=== PATIENT | male | born 1935 | race Caucasian/White ===

== ENCOUNTER → 2019-07-24 10:57 | Outpatient (CLI) | payer MEDICARE, SELFPAY ==
[2019-07-24 12:19] LABS: Hemoglobin A1C% w Est Avg Glu 6.7 % (4.0-6.0)
[2019-07-24 13:16] LABS: Alanine Aminotransferase 23 IU/L (<50); Albumin 4.2 g/dL (3.5-5.0); Albumin Globulin Ratio 1.4 (1.0-2.8); Alkaline Phosphatase 70 U/L (38-126); Aspartate Aminotransferase 26 IU/L (17-59); BUN Creatinine Ratio 28.3 (6-22); Bilirubin Total 0.9 mg/dL (0.2-1.3); Blood Urea Nitrogen 17 mg/dL (9-20); Calcium 9.6 mg/dL (8.4-10.2); Carbon Dioxide 29 mmol/L (22-32); Chloride 99 mmol/L (98-107); Estimated Glomerular Filt Rate > 60.0 mL/min (>60); Globulin 2.9 g/dL (1.7-4.1); Glucose 94 mg/dL (80-110); HEMOLYSIS < 15 (0-50); Potassium 3.8 mmol/L (3.4-5.1); Sodium 137 mmol/L (137-145); Total Protein 7.1 g/dL (6.3-8.2)
== END ==
PROVIDERS: PCP Internal Medicine; Referring Provider Internal Medicine; Visit Provider Internal Medicine
DX: E11.9 Type 2 diabetes mellitus without complications (principal); I10 Essential (primary) hypertension
CPT/HCPCS: 36415; 80053; 83036

== ENCOUNTER → 2019-11-07 07:26 | Outpatient (CLI) | payer MEDICARE, SELFPAY ==
[2019-11-07 09:22] LABS: BUN Creatinine Ratio 19.7 (6-22); Blood Urea Nitrogen 13 mg/dL (9-20); Calcium 9.4 mg/dL (8.4-10.2); Carbon Dioxide 32 mmol/L (22-32); Chloride 98 mmol/L (98-107); Estimated Glomerular Filt Rate > 60.0 mL/min (>60); Glucose 157 mg/dL (80-110); HEMOLYSIS < 15 (0-50); Potassium 3.7 mmol/L (3.4-5.1); Sodium 140 mmol/L (137-145)
[2019-11-07 09:55] LABS: Testosterone 229 ng/dL (71.8-623)
== END ==
PROVIDERS: PCP Internal Medicine; Referring Provider Internal Medicine; Visit Provider Internal Medicine
DX: E11.9 Type 2 diabetes mellitus without complications (principal); I10 Essential (primary) hypertension; E29.1 Testicular hypofunction
CPT/HCPCS: 36415; 80048; 84403

== ENCOUNTER → 2020-05-05 18:41 | Outpatient (ROUT) | payer OTHER, SELFPAY ==
[2020-05-05 19:34] LABS: Add Manual Diff / Slide Review NO; Basophils Absolute Auto 0 /uL (0-100); Basophils Percent Auto 0.3 % (0-2); Eosinophils Absolute Auto 100 /uL (0-450); Hematocrit 44.6 % (41-53); Hemoglobin 15.3 g/dL (13.5-17.5); Lymphocytes Absolute Auto 1600 /uL (1100-4500); Lymphocytes Percent Auto 16.6 % (25-40); Mean Corpuscular HGB Conc 34.2 % (30-36); Mean Corpuscular Hemoglobin 28.4 PG (26-34); Mean Corpuscular Volume 82.8 fL (80-100); Monocytes Absolute Auto 900 /uL (0-900); Monocytes Percent Auto 9.1 % (3-14); Neutrophils Absolute Auto 7100 /uL (1500-7000); Platelet Count 317 X10^3/uL (150-400); Red Blood Cell Count 5.39 X10^6/uL (4.5-5.9); Red Cell Distribution Width 14.6 % (11.6-14.8); White Blood Cell Count 9.8 X10^3/uL (4.5-11.0)
[2020-05-05 19:43] LABS: Alanine Aminotransferase 18 IU/L (<50); Albumin 4.1 g/dL (3.5-5.0); Albumin Globulin Ratio 1.5 (1.0-2.8); Alkaline Phosphatase 94 U/L (38-126); Aspartate Aminotransferase 32 IU/L (17-59); BUN Creatinine Ratio 24.3 (6-22); Bilirubin Total 0.6 mg/dL (0.2-1.3); Blood Urea Nitrogen 18 mg/dL (9-20); Calcium 9.7 mg/dL (8.4-10.2); Carbon Dioxide 32 mmol/L (22-32); Chloride 92 mmol/L (98-107); Estimated Glomerular Filt Rate > 60.0 mL/min (>60); Globulin 2.8 g/dL (1.7-4.1); Glucose 128 mg/dL (80-110); HEMOLYSIS < 15 (0-50); Lipase 190 U/L (23-300); Potassium 3.6 mmol/L (3.4-5.1); Sodium 135 mmol/L (137-145); Total Protein 6.9 g/dL (6.3-8.2)
[2020-05-05 20:32] LABS: Erythrocyte Sedimentation Rate 6 MM/HR (0-15)
== END ==
PROVIDERS: PCP Internal Medicine; Visit Provider Internal Medicine
DX: R10.30 Lower abdominal pain, unspecified (principal)
CPT/HCPCS: 80053; 83690; 85025; 85651

== ENCOUNTER → 2020-05-06 12:50 | Outpatient (CLI) | payer OTHER, SELFPAY ==
--- NOTE | 2020-05-06 | DI.CT.S_ITS ---
PROCEDURE: CT ABDOMEN PELVIS W CON INDICATIONS: Lower abdominal pain, unspecified TECHNIQUE: After the administration of oral and intravenous contrast, 5 mm thick sections acquired from the diaphragms to the symphysis. 5 mm thick coronal and sagittal reformats were performed. For radiation dose reduction, the following was used: automated exposure control, adjustment of mA and/or kV according to patient size. COMPARISON: None. FINDINGS: Image quality: Excellent. ABDOMEN: Lung bases: There is a large right pleural effusion. Nodular thickening of the pleural surfaces is seen that is suspicious for a pleural planus malignancy or metastatic disease. The largest area of pleural nodularity is seen adjacent to the anterior right hemidiaphragm (22/3) measuring up to 8.7 x 2.7 by 4.8 cm. There is atelectasis of the right lung base. A nodular opacity is seen in the anterior aspect of the right middle or upper lobe, incompletely included on this exam. The left lung base is clear. Solid organs: The liver surface is mildly nodular, which could indicate early cirrhotic changes. A subtle 1.1 cm poorly defined hypodensity is seen in the right hepatic lobe (38/3). There is focal fatty infiltration adjacent to the falciform ligament. The gallbladder is surgically absent. Biliary system is non-dilated. Pancreas enhances normally. Spleen is normal in size and enhancement. No adrenal nodules. Kidneys are normal in size and enhancement, without hydronephrosis. A probable 5 mm calculus is seen in the interpolar region of the left kidney. A large cyst is seen in the interpolar region of the right kidney. Peritoneum and bowel: Multiple diverticula are seen in the sigmoid colon without signs of acute diverticulitis. There are no signs of bowel obstruction. No free fluid or air. Nodes and vessels: No retroperitoneal or mesenteric adenopathy. Aorta and inferior vena cava are normal in caliber. Moderate atherosclerotic calcifications are seen in the abdominal aorta. Areas of mild infrarenal ectasia are seen measuring up to 2.4 cm in diameter. Miscellaneous: No ventral hernias. PELVIS: Genitourinary: There is mild diffuse thickening of the bladder wall that may be related to underdistention, chronic outlet obstruction, and/or cystitis. The prostate is mildly enlarged. Miscellaneous: A small fat containing right inguinal hernia is present. No significant pelvic lymphadenopathy. Bones: Multilevel degenerative changes are seen in the spine. There is grade 1 anterolisthesis of L4 on L5. No suspicious bony lesions. No vertebral body compression fractures. IMPRESSION: 1. Large right pleural effusion with atelectasis of the right lung base. Nodularity of the pleural surfaces suspicious for pleural metastatic disease. A small masslike opacity in the right middle or upper lobe is partially imaged. Recommend CT of the chest for further evaluation. 2. Subtle nodularity of the liver surface is suspicious for mild or early cirrhosis. Recommend correlation clinical findings. Nonspecific subtle hypodense 1.1 cm lesion in the right hepatic lobe is indeterminate. Liver protocol MRI or CT may be obtained on a nonemergent basis for further evaluation. 3. Colonic diverticulosis without signs of acute diverticulitis. 4. Nonobstructing 5 mm calculus in the interpolar region of the right kidney. Dictated by: Macario Mars M.D. on 05/06/2020 at 13:33 Approved by: Macario Mars M.D. on 05/06/2020 at 13:48
== END ==
PROVIDERS: PCP Internal Medicine; Referring Provider Internal Medicine; Visit Provider Internal Medicine
DX: R10.30 Lower abdominal pain, unspecified (principal); J90 Pleural effusion, not elsewhere classified; K57.30 Diverticulosis of large intestine without perforation or abscess without bleeding; N28.1 Cyst of kidney, acquired; I70.0 Atherosclerosis of aorta; I77.811 Abdominal aortic ectasia; N40.0 Benign prostatic hyperplasia without lower urinary tract symptoms; M43.16 Spondylolisthesis, lumbar region
CPT/HCPCS: 74177; Q9967

== ENCOUNTER 2020-05-10 09:52 | Observation (INO) | payer OTHER, SELFPAY ==
[2020-05-10] VITALS (10 sets, daily range): BP systolic 116–148; BP diastolic 59–88; PULSE 85–104; RESP 18–39; TEMP 36.5–36.7; O2SAT 88–100; BMI 26.1
--- NOTE | 2020-05-10 | DI.RAD.S_ITS ---
PROCEDURE: XR CHEST 1V INDICATIONS: POST THORA TECHNIQUE: One view of the chest was acquired. COMPARISON: [facility], CR, XR CHEST 1V, 05/10/2020, 10:15. FINDINGS: Surgical changes and devices: Surgical clips and cervical spinal fixation hardware. No pneumothorax identified. There is moderate residual right pleural fluid with adjacent atelectasis and patchy consolidative opacities involve the right upper lobe. There is scarring/atelectasis throughout the left lobe without focal consolidation. Mediastinum: Mediastinal contours appear normal. Heart size is normal. Bones and chest wall: No suspicious bony lesions. Overlying soft tissues appear unremarkable. IMPRESSION: No pneumothorax, status post thoracentesis. Residual right pleural effusion and adjacent atelectasis, as well as diffuse patchy and ill-defined opacities. No new focal consolidation. Improved lung volumes. Dictated by: Lex Ruvalcaba M.D. on 05/10/2020 at 13:24 Approved by: Lxe Ruvalcaba M.D. on 05/10/2020 at 13:26
--- NOTE | 2020-05-10 10:11 | DI.RAD.S_ITS ---
PROCEDURE: XR CHEST 1V INDICATIONS: short of breath TECHNIQUE: One view of the chest was acquired. COMPARISON: None. FINDINGS: Surgical changes and devices: Cervical spine postoperative hardware is seen. Lower neck clips are seen. Postoperative change of the right shoulder can be seen. Lungs and pleura: Low lung volumes are noted. This causes a crowded appearance to the lung markings and limits evaluation. Bilateral pleural effusions are seen, right worse than left. No pneumothorax is seen. Generalized interstitial prominence can be seen. Mediastinum: Cardiac and mediastinal silhouettes are obscured. There is believed to be [id number] cardiomegaly. Atherosclerotic calcification of the aortic arch is noted. Bones and chest wall: No suspicious bony lesions. Age-appropriate bony degenerative changes are seen. Overlying soft tissues appear unremarkable. IMPRESSION: Cardiomegaly, interstitial prominence, and pleural effusions. Please correlate with patient presentation, physical examination findings, and laboratory values for congestive heart failure. Postoperative and degenerative changes are seen. Dictated by: Escobar Huang M.D. on 05/10/2020 at 9:28 Approved by: Escobar Huang M.D. on 05/10/2020 at 9:29
[2020-05-10 10:18] LABS: Add Manual Diff / Slide Review NO; Basophils Absolute Auto 100 /uL (0-100); Basophils Percent Auto 0.6 % (0-2); Eosinophils Absolute Auto 100 /uL (0-450); Eosinophils Percent Auto 0.9 % (2-4); Hematocrit 45.3 % (41-53); Hemoglobin 15.1 g/dL (13.5-17.5); Lymphocytes Absolute Auto 1900 /uL (1100-4500); Lymphocytes Percent Auto 18.5 % (25-40); Mean Corpuscular HGB Conc 33.4 % (30-36); Mean Corpuscular Hemoglobin 27.7 PG (26-34); Monocytes Absolute Auto 1100 /uL (0-900); Monocytes Percent Auto 10.8 % (3-14); Neutrophils Absolute Auto 7200 /uL (1500-7000); Neutrophils Percent Auto 69.2 % (50-75); Platelet Count 380 X10^3/uL (150-400); Red Blood Cell Count 5.46 X10^6/uL (4.5-5.9); Red Cell Distribution Width 14.8 % (11.6-14.8); White Blood Cell Count 10.4 X10^3/uL (4.5-11.0)
[2020-05-10 10:27] LABS: INR 1.2 (0.9-1.3); Prothrombin Time 13.8 SECONDS (10.1-12.7)
[2020-05-10 10:30] LABS: PTT Partial Thromboplastin Tim 36 SECONDS (26.4-36.2)
[2020-05-10 10:32] LABS: Alanine Aminotransferase 21 IU/L (<50); Albumin 4.3 g/dL (3.5-5.0); Albumin Globulin Ratio 1.3 (1.0-2.8); Alkaline Phosphatase 100 U/L (38-126); Aspartate Aminotransferase 30 IU/L (17-59); BUN Creatinine Ratio 30.5 (6-22); Bilirubin Total 0.7 mg/dL (0.2-1.3); Blood Urea Nitrogen 25 mg/dL (9-20); Calcium 10.1 mg/dL (8.4-10.2); Carbon Dioxide 30 mmol/L (22-32); Chloride 96 mmol/L (98-107); Creatine Kinase 30 U/L (55-170); Estimated Glomerular Filt Rate > 60.0 mL/min (>60); Globulin 3.4 g/dL (1.7-4.1); Glucose 153 mg/dL (80-110); HEMOLYSIS < 15 (0-50); Magnesium 1.7 mg/dL (1.6-2.3); Potassium 3.2 mmol/L (3.4-5.1); Sodium 138 mmol/L (137-145); Total Protein 7.7 g/dL (6.3-8.2)
--- NOTE | 2020-05-10 10:43 | ED.SOB ---
HPI - SOB/Dyspnea General Chief Complaint: Shortness of Breath/Dyspnea Stated Complaint: Shortness of Breath Time Seen by Provider: 05/10/20 10:10 Source: patient Mode of arrival: Ambulatory Limitations: no limitations History of Present Illness HPI Narrative: Patient is an 84-year-old male presenting with increasing shortness of breath. For the last 1 week he says he has had worsening shortness of breath positive orthopnea. He actually had a CT of his abdomen to see felt kind of nauseous as well and did no right-sided pleural effusion. He was at his primary care provider's office today and sent to the ED for further evaluation and probable thoracentesis. X-ray initially does confirm large right-sided pleural effusion. He is requiring oxygen. Patient says he is very short of breath with exertion and cannot lay down. He denies any fever or chills. He is a former smoker stating that he has not smoked for at least 30 years but was quite a heavy smoker in the past. 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 MD Complaint: shortness of breath Onset (ago): week(s) (1) Related Data Home Medications Medication Instructions Recorded Confirmed aspirin 81 mg PO DAILY 05/10/20 05/10/20 atorvastatin 40 mg PO DAILY 05/10/20 05/10/20 hydrochlorothiazide 25 mg PO QAM 05/10/20 05/10/20 losartan 50 mg PO DAILY 05/10/20 05/10/20 metformin 500 mg PO QAM 05/10/20 05/10/20 omeprazole 40 mg PO QAM 05/10/20 05/10/20 tramadol 50 mg PO TID PRN 05/10/20 05/10/20 Allergies Allergy/AdvReac Type Severity Reaction Status Date / Time Penicillins Allergy Unknown Verified 05/10/20 10:19 Sulfa (Sulfonamide Allergy Unknown Verified 05/10/20 10:19 Antibiotics) Review of Systems Review of Systems ROS Unobtainable: All systems reviewed & are unremarkable except as noted in HPI and below Constitutional Constitutional: Denies chills, Denies fever(s), Denies lethargy and Denies weakness ENT Ears, Nose, Mouth, and Throat: Denies change in voice, Denies neck pain and Denies sore throat Cardiovascular Cardiovascular: Denies chest pain, Denies irregular heart rhythm, Denies lightheadedness, Denies palpitations, Reports dyspnea on exertion and Reports orthopnea Respiratory Respiratory: Reports dyspnea on exertion Gastrointestinal Gastrointestinal: Denies abdominal pain, Denies change in bowel habits, Denies diarrhea, Denies nausea and Denies vomiting Musculoskeletal Musculoskeletal: Denies neck pain Integumentary/Breasts Skin/Breast: Denies pruritus, Denies erythema, Denies rash and Denies wounds Neurologic Neurologic: Denies weakness Endocrine Endocrine: Denies palpitations Patient History Medical History (Updated 05/10/20 @ 14:35 by Simran Alfaro RN) Diabetes mellitus Hyperlipidemia Surgical History (Updated 05/10/20 @ 14:38 by Simran Alfaro RN) H/O right wrist surgery H/O rotator cuff surgery History of carpal tunnel surgery History of carpal tunnel surgery Hx of appendectomy Hx of inguinal hernia surgery Hx of knee surgery Previous back surgery Family History (Updated 05/10/20 @ 14:38 by Simran Alfaro RN) Father Cardiac disease Social History household members: spouse Smoking Status: Former smoker alcohol intake: current Smoking Status: Former smoker alcohol intake frequency: 0-2 drinks per day Substance Use Type: does not use Exam Initial Vital Signs Initial Vital Signs: Vital Signs Temperature 98.1 F 05/10/20 10:05 Pulse Rate 104 H 05/10/20 10:05 Respiratory Rate 38 H 05/10/20 10:05 Blood Pressure 148/59 H 05/10/20 10:05 Pulse Oximetry 88 L 05/10/20 10:05 GENERAL: Very pleasant 84-year-old male and in no acute distress. HEENT: Head atraumatic,EOMI, pupils reactive, face symmetric, moist mucous membranes CARDIOVASCULAR: Regular rate and rhythm without murmurs, rubs or gallops. RESPIRATORY: Decreased breath sounds on the right, conversational dyspnea but no significant respiratory distress ABDOMEN: Soft, nontender. Normoactive bowel sounds all 4 quadrants. No guarding or rebound. EXTREMITIES: Normal range of motion, no clubbing or edema. Neurovascularly intact NEUROLOGICAL: Alert and oriented x4.Normal gait and speech. Cranial nerves II through XII grossly intact. SKIN: Warm, dry, no laceration, no petechiae, no rashes or lesions. Course Orders Ordered: ED Orders 05/10/20 10:09 COVID19 - ADMIT ([employer] swab/PCR) Stat Complete Blood Count AUTO DIFF Stat Comprehensive Metabolic Panel Stat Magnesium Stat NT-proBNP (BNP-Adult 18+) Stat Partial Thromboplastin Time Stat Prothrombin Time INR Stat Troponin & CK Cardiac Panel Stat 05/10/20 10:11 Consult to Respiratory Therapy Evaluate & Treat XR chest 1V Stat 05/10/20 10:56 CT chest w con Stat Vital Signs Vital signs: Vital Signs - 8 hr 05/10/20 10:05 05/10/20 10:10 05/10/20 10:30 Temperature 98.1 F Pulse Rate 104 H 100 H 97 H Respiratory Rate 38 H 23 28 H Blood Pressure 148/59 H Pulse Oximetry 88 L 93 05/10/20 10:32 05/10/20 10:58 05/10/20 11:00 Temperature Pulse Rate 98 H 96 H 96 H Respiratory Rate 28 H 27 H 39 H Blood Pressure 132/71 144/63 H 130/63 Pulse Oximetry 100 98 95 05/10/20 11:30 Temperature Pulse Rate 95 H Respiratory Rate 39 H Blood Pressure 124/71 Pulse Oximetry 97 MDM - SOB/Dyspnea Lab Data Attestation: I reviewed the patient's lab results. Result diagrams: 05/10/20 10:09 05/10/20 10:09 Labs: Lab Results 05/10/20 05/10/20 05/10/20 Range/Units 10:09 10:09 10:09 WBC 10.4 (4.5-11.0) X10^3/uL RBC 5.46 (4.5-5.9) X10^6/uL Hgb 15.1 (13.5-17.5) g/dL Hct 45.3 (41-53) % MCV 83.0 (80-100) fL MCH 27.7 (26-34) PG MCHC 33.4 (30-36) % RDW 14.8 (11.6-14.8) % Plt Count 380 (150-400) X10^3/uL Neut % (Auto) 69.2 (50-75) % Lymph % (Auto) 18.5 L (25-40) % [place] % (Auto) 10.8 (3-14) % Eos % (Auto) 0.9 L (2-4) % Baso % (Auto) 0.6 (0-2) % Neut # (Auto) 7200 H (5202-4808) /uL Lymph # (Auto) 1900 (8264-5973) /uL [place] # (Auto) 1100 H (0-900) /uL Eos # (Auto) 100 (0-450) /uL Baso # (Auto) 100 (0-100) /uL PT 13.8 H (10.1-12.7) SECONDS INR 1.2 (0.9-1.3) APTT 36 (26.4-36.2) SECONDS Sodium 138 (137-145) mmol/L Potassium 3.2 L (3.4-5.1) mmol/L Chloride 96 L (98-107) mmol/L Carbon Dioxide 30 (22-32) mmol/L BUN 25 H (9-20) mg/dL Creatinine 0.82 (0.66-1.25) mg/dL Estimated GFR > 60.0 (>60) mL/min BUN/Creatinine Ratio 30.5 H (6-22) Glucose 153 H (80-110) mg/dL Calcium 10.1 (8.4-10.2) mg/dL Magnesium 1.7 (1.6-2.3) mg/dL Total Bilirubin 0.7 (0.2-1.3) mg/dL AST 30 (17-59) IU/L ALT 21 (<50) IU/L Alkaline Phosphatase 100 (38-126) U/L Total Creatine Kinase 30 L (55-170) U/L CK-MB (CK-2) TNP CK-MB (CK-2) Rel Index TNP Troponin I 0.014 (0.01-0.034) ng/mL NT-Pro-B Natriuret Pep 56 (<450) pg/mL Total Protein 7.7 (6.3-8.2) g/dL Albumin 4.3 (3.5-5.0) g/dL Globulin 3.4 (1.7-4.1) g/dL Albumin/Globulin Ratio 1.3 (1.0-2.8) SARS-CoV-2 (PCR) (Negative) 05/10/20 Range/Units 10:09 WBC (4.5-11.0) X10^3/uL RBC (4.5-5.9) X10^6/uL Hgb (13.5-17.5) g/dL Hct (41-53) % MCV (80-100) fL MCH (26-34) PG MCHC (30-36) % RDW (11.6-14.8) % Plt Count (150-400) X10^3/uL Neut % (Auto) (50-75) % Lymph % (Auto) (25-40) % [place] % (Auto) (3-14) % Eos % (Auto) (2-4) % Baso % (Auto) (0-2) % Neut # (Auto) (8234-0773) /uL Lymph # (Auto) (9519-5886) /uL [place] # (Auto) (0-900) /uL Eos # (Auto) (0-450) /uL Baso # (Auto) (0-100) /uL PT (10.1-12.7) SECONDS INR (0.9-1.3) APTT (26.4-36.2) SECONDS Sodium (137-145) mmol/L Potassium (3.4-5.1) mmol/L Chloride (98-107) mmol/L Carbon Dioxide (22-32) mmol/L BUN (9-20) mg/dL Creatinine (0.66-1.25) mg/dL Estimated GFR (>60) mL/min BUN/Creatinine Ratio (6-22) Glucose (80-110) mg/dL Calcium (8.4-10.2) mg/dL Magnesium (1.6-2.3) mg/dL Total Bilirubin (0.2-1.3) mg/dL AST (17-59) IU/L ALT (<50) IU/L Alkaline Phosphatase (38-126) U/L Total Creatine Kinase (55-170) U/L CK-MB (CK-2) CK-MB (CK-2) Rel Index Troponin I (0.01-0.034) ng/mL NT-Pro-B Natriuret Pep (<450) pg/mL Total Protein (6.3-8.2) g/dL Albumin (3.5-5.0) g/dL Globulin (1.7-4.1) g/dL Albumin/Globulin Ratio (1.0-2.8) SARS-CoV-2 (PCR) Negative (Negative) Imaging Data Chest x-ray: Radiologist's Impression: PROCEDURE: XR CHEST 1V INDICATIONS: short of breath TECHNIQUE: One view of the chest was acquired. COMPARISON: None. FINDINGS: Surgical changes and devices: Cervical spine postoperative hardware is seen. Lower neck clips are seen. Postoperative change of the right shoulder can be seen. Lungs and pleura: Low lung volumes are noted. This causes a crowded appearance to the lung markings and limits evaluation. Bilateral pleural effusions are seen, right worse than left. No pneumothorax is seen. Generalized interstitial prominence can be seen. Mediastinum: Cardiac and mediastinal silhouettes are obscured. There is believed to be [id number] cardiomegaly. Atherosclerotic calcification of the aortic arch is noted. Bones and chest wall: No suspicious bony lesions. Age-appropriate bony degenerative changes are seen. Overlying soft tissues appear unremarkable. IMPRESSION: Cardiomegaly, interstitial prominence, and pleural effusions. Please correlate with patient presentation, physical examination findings, and laboratory values for congestive heart failure. Postoperative and degenerative changes are seen. Dictated by: Escobar Huang M.D. on 05/10/2020 at 9:28 Approved by: Escobar Huang M.D. on 05/10/2020 at 9:29 CT scan - chest: Radiologist's Impression: PROCEDURE: CT CHEST W CON INDICATIONS: pleural effusion TECHNIQUE: After the administration of intravenous contrast, 5 mm thick sections acquired from the pulmonary apices to the posterior costophrenic angles. 1 mm axial lung, 5 mm thick coronal and sagittal reformats and 7 mm axial MIP were acquired. For radiation dose reduction, the following was used: automated exposure control, adjustment of mA and/or kV according to patient size. COMPARISON: [facility], CT, CT ABDOMEN PELVIS W CON, 05/06/2020, 13:46. FINDINGS: Image quality: Excellent. Lungs and pleura: There is a moderate left effusion with superimposed consolidation. There are areas of apparent soft tissue nodularity along the pleura most prominently in the posterior medial aspect of the lower lobe. Pulmonary nodule measuring 24 mm AP x 23 mm transverse is present in the right upper lobe, partially visualized on prior exam in appearing unchanged. Similar smaller foci are noted in the anterior aspect of what appears to be the right middle lobe on series 3, image 197 measuring 12 mm AP x 14 mm transverse, unchanged. There is a soft tissue mass measuring 35 mm AP x 85 mm transverse along the anterior inferior pleura series 2, image 44, unchanged. Mediastinum: Heart size is normal. No pericardial effusion. Multiple enlarged mediastinal lymph nodes are present. The largest is in the anterior right paratracheal location measuring 15 mm in short axis. There is also a low-attenuation focus within the right hilar region, measuring 27 mm in short axis. Thoracic aorta and central pulmonary arteries are normal in size. Esophagus is normal in caliber. No hiatal hernia. Bones and chest wall: No suspicious bony lesions. No vertebral body compression fractures. No axillary or supraclavicular adenopathy by size criteria. Thyroid gland is unremarkable . Abdomen: Visualized upper abdominal solid organs appear normal. Upper abdominal bowel loops are normal in caliber. IMPRESSION: 1. Moderate right pleural effusion with superimposed consolidation suggestive of atelectasis. In addition, there are focal areas of apparent soft tissue density surrounding the effusion at the pleura as above suggestive of soft tissue nodules, concerning for malignancy. 2. Mediastinal adenopathy suspicious for metastatic disease. In addition, low-attenuation focus is present within the right hilar region appearing consistent with enlarged hilar lymph node, also concerning for metastatic disease. 3. Soft tissue densities within the right middle lobe as above partially visualized on prior exam. These are concerning for malignancy. 4. Soft tissue mass at the anterior inferior pleura as above with heterogeneous enhancement most suggestive of malignancy. Dictated by: Gillian Aguilar M.D. on 05/10/2020 at 11:00 ECG Data Attestation: I personally reviewed and interpreted this ECG as follows: Prior ECG tracings: not available for review Interpretation: Sinus rhythm rate 102 p.r. interval 158 QRS 104 QTC 466 Q-wave is noted in lead 3 no priors to compare no ST changes or T-wave inversions PAC noted MDM Narrative Medical decision making narrative: Patient is found to have large pleural effusion suspect malignant in nature based on CTs. He is requiring oxygen and will need thoracentesis. 11:40Am Dr. fernandez updated on patient's symptoms and test results and happily except Discharge Plan Departure Patient Disposition: Admitted as Observation Clinical Impression: Pleural effusion Admit Date/Time: 05/10/20 11:42 Admit Provider: Sherrie Fernandez
[2020-05-10 10:44] LABS: NT-proBNP (BNP-Adult 18+) 56 pg/mL (<450); Troponin I 0.014 ng/mL (0.01-0.034)
--- NOTE | 2020-05-10 10:56 | DI.CT.S_ITS ---
PROCEDURE: CT CHEST W CON INDICATIONS: pleural effusion TECHNIQUE: After the administration of intravenous contrast, 5 mm thick sections acquired from the pulmonary apices to the posterior costophrenic angles. 1 mm axial lung, 5 mm thick coronal and sagittal reformats and 7 mm axial MIP were acquired. For radiation dose reduction, the following was used: automated exposure control, adjustment of mA and/or kV according to patient size. COMPARISON: [facility], CT, CT ABDOMEN PELVIS W CON, 05/06/2020, 13:46. FINDINGS: Image quality: Excellent. Lungs and pleura: There is a moderate left effusion with superimposed consolidation. There are areas of apparent soft tissue nodularity along the pleura most prominently in the posterior medial aspect of the lower lobe. Pulmonary nodule measuring 24 mm AP x 23 mm transverse is present in the right upper lobe, partially visualized on prior exam in appearing unchanged. Similar smaller foci are noted in the anterior aspect of what appears to be the right middle lobe on series 3, image 197 measuring 12 mm AP x 14 mm transverse, unchanged. There is a soft tissue mass measuring 35 mm AP x 85 mm transverse along the anterior inferior pleura series 2, image 44, unchanged. Mediastinum: Heart size is normal. No pericardial effusion. Multiple enlarged mediastinal lymph nodes are present. The largest is in the anterior right paratracheal location measuring 15 mm in short axis. There is also a low-attenuation focus within the right hilar region, measuring 27 mm in short axis. Thoracic aorta and central pulmonary arteries are normal in size. Esophagus is normal in caliber. No hiatal hernia. Bones and chest wall: No suspicious bony lesions. No vertebral body compression fractures. No axillary or supraclavicular adenopathy by size criteria. Thyroid gland is unremarkable . Abdomen: Visualized upper abdominal solid organs appear normal. Upper abdominal bowel loops are normal in caliber. IMPRESSION: 1. Moderate right pleural effusion with superimposed consolidation suggestive of atelectasis. In addition, there are focal areas of apparent soft tissue density surrounding the effusion at the pleura as above suggestive of soft tissue nodules, concerning for malignancy. 2. Mediastinal adenopathy suspicious for metastatic disease. In addition, low-attenuation focus is present within the right hilar region appearing consistent with enlarged hilar lymph node, also concerning for metastatic disease. 3. Soft tissue densities within the right middle lobe as above partially visualized on prior exam. These are concerning for malignancy. 4. Soft tissue mass at the anterior inferior pleura as above with heterogeneous enhancement most suggestive of malignancy. Dictated by: Gillian Aguilar M.D. on 05/10/2020 at 11:00 Approved by: Gillian Aguilar M.D. on 05/10/2020 at 11:13
[2020-05-10 11:09] LABS: COVID19 - ADMIT (NP swab/PCR) Negative (Negative)
--- NOTE | 2020-05-10 11:59 | DI.US.S_ITS ---
PROCEDURE: US THORACENTESIS INDICATIONS: RIGHT PLEURAL EFFUSION TECHNIQUE: The indications, alternatives, benefits, risks, and complications of the procedure were explained to the patient. Written informed consent was obtained and placed in the chart. The chest was examined sonographically, and an appropriate site was chosen for thoracentesis. The skin was prepared and draped in the usual sterile fashion, and 1% lidocaine was infiltrated from the skin down through the pleural surface. A 19-gauge catheter-covered needle was then introduced into the pleural space, the catheter was advanced and the needle was withdrawn, and thereafter pleural fluid was aspirated. The catheter was then removed and a dressing was applied. COMPARISON: None. FINDINGS: Access site: Right hemithorax. Needle: One-Step centesis catheter with introducer needle. Fluid volume and description: 1500 cc of serosanguineous fluid Fluid sent for diagnostic testing: As requested Medications: 1% lidocaine for local anaesthesia. Complications: None; post-procedural chest radiograph is pending to assess for pneumothorax. IMPRESSION: Successful ultrasound-guided thoracentesis. Dictated by: Lex Ruvalcaba M.D. on 05/10/2020 at 14:36 Approved by: Lex Ruvalcaba M.D. on 05/10/2020 at 15:11
--- NOTE | 2020-05-10 12:40 | PATH_ITS ---
Note [facility] Accession Number: [id number] TESTS RESULT FLAG UNITS REF RANGE LAB Clinician Provided Cytology Information No. of containers..01 Other (Miscellaneous) [A] 01 PLEURAL FLUID DIAGNOSIS: [A] 01 PLEURAL FLUID POSITIVE FOR MALIGNANT CELLS; FINAL DIAGNOSIS PENDING IMMUNOHISTOCHEMICAL EVALUATION, REPORTED AN ADDENDUM. 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 A panel of immunostains will be performed to determine the cell lineage and primary site with those results and final diagnosis reported as an addendum. Pathologist ICD10: 01 J90 Annie Manley MD, Pathologist NPI- [id number] Humberto Craven, Lumber Hacker ([facility]) 01 65 CC, RED, CLOUDY RECEIVED: FRESH IN ORANGE CAP CONTAINER. /[facility] 05/11/2020 07 Local FLAG LEGEND: L-Low Normal,H-High Normal,LL-Alert Low,HH-Alert High <-Panic Low,>-Panic High,A-Abnormal,AA-Critical Abnormal Performed at: 01 =Z [facility] [address], [place] [address] Vernon Nowak MD, Performed at: 01 [facility] [address], [place], [place] [id number] MD Vernon Nowak MD Phone: [phone]
--- NOTE | 2020-05-10 12:42 | PC.NURSE ---
Patient admitted to the floor around 1230. He has been having some difficulty breathing, his r.lower lobes are decreased. Per Jovan in the ER, chest xray showed a r.pleural effusion and soft tissue mass at the anterior inferior pluera concerned for possible malignancy. The sob has been going on for about 1 week, he is on 2l of o2 and sats are 98%. He states that he has also lost 15 pounds in the last week as eating has made his lower abomen hurt. He denies pain now and was just wheeled down for his thoracentisis.
[2020-05-10 13:48] LABS: Albumin Body Fluid 2.9 g/dL; Glucose Body Fluid 119 mg/dL; LDH Body Fluid 1152 U/L; Total Protein Body Fluid 4.9 g/dL
[2020-05-10 13:50] LABS: Body Fluid Red Blood Cells 101528 /uL; Body Fluid Tot Nucleated Cells 2592 /uL
[2020-05-10 14:01] LABS: Body Fluid Appearance CLOUDY; Body Fluid Clotted? NO CLOTS PRESENT; Body Fluid Color RED
[2020-05-10 15:23] LABS: Eosinophils Body Fluid 0 %; Mononuclear WBC Body Fluid 61 %; Polynuclear WBC Body Fluid 4 %
[2020-05-10 15:24] LABS: Other Cells Body Fluid 35 %
--- NOTE | 2020-05-10 16:39 | PM.HP.1 ---
History of Present Illness History of Present Illness Date Patient Seen: 05/10/20 Chief complaint: Shortness of Breath Narrative: The patient is an 84-year-old male with a history of type 2 diabetes hypertension and hyperlipidemia who presents to the hospital for increasing shortness of breath. Patient reports his shortness of breath began about 10 days ago. He had associated right-sided chest wall pain that was worse with palpitation. Shortness of breath was worse when lying flat. It interfered with his ability to eat. His shortness of breath also interfered with his ability to lie flat. The patient was seen in clinic by his primary care provider, Dr. Rocha for abdominal pain. CT of the abdomen and pelvis done on 05/06 did show a large right pleural effusion. As the patient shortness of breath got progressively worse he presented to the emergency room for evaluation. In the emergency department a chest x-ray confirmed a right pleural effusion. CT scan confirmed this. The patient was taken to ultrasound for ultrasound-guided thoracentesis. Of note the CT scan was remarkable for the following: Moderate right pleural effusion with superimposed consolidation suggestive of atelectasis. In addition, there are focal areas of apparent soft tissue density surrounding the effusion at the pleura as above suggestive of soft tissue nodules, concerning for malignancy.2. Mediastinal adenopathy suspicious for metastatic disease. In addition, low-attenuation focus is present within the right hilar region appearing consistent with enlarged hilar lymph node, also concerning for metastatic disease. 3. Soft tissue densities within the right middle lobe as above partially visualized on prior exam. These are concerning for malignancy. 4. Soft tissue mass at the anterior inferior pleura as above with heterogeneousenhancement most suggestive of malignancy. Patient underwent a ultrasound-guided thoracentesis and 1500 cc of fluid was removed. Fluid has been sent for cytology. Patient reports he feels significantly improved in terms of his breathing. He does continue have some tenderness along the right side of the chest wall. He denies any other pain. He has had no headache blurred vision or double vision. He had recent cataract surgery and has had some difficulty with vision out of the right eye. He denies nausea vomiting or diarrhea. He has had no hematemesis melena or bright red blood per rectum. He has had no lower extremity edema. He denies any dysuria hematuria pyuria. He has had no cough, fever, chills, or other symptoms. The patient is admitted to the hospital for evaluation of a large right pleural effusion with concern for possible lung malignancy Patient was a prior smoker. He quit 30 years ago. Patient History Medical History (Updated 05/10/20 @ 16:49 by Sherrie Fernandez MD) Diabetes mellitus Gastroesophageal reflux disease Hyperlipidemia Hypertension Surgical History H/O right wrist surgery H/O rotator cuff surgery History of carpal tunnel surgery History of carpal tunnel surgery Hx of appendectomy Hx of inguinal hernia surgery Hx of knee surgery Previous back surgery Family & Social History Family History Father Cardiac disease Social History: household members spouse Safety & Behavioral: Feels Safe in Current Yes Environment Been Physically Hurt or No Threatened By a Person Suicidal Ideation Description None Suicide Plan Description No Plan Tobacco & Substance use: Smoking Status Former smoker alcohol intake current alcohol intake frequency a few times a month Substance Use Type does not use Meds Home Medications and Allergies Home Medications Medication Instructions Recorded Confirmed Type aspirin 81 mg PO DAILY 05/10/20 05/10/20 History atorvastatin 40 mg PO DAILY 05/10/20 05/10/20 History hydrochlorothiazide 25 mg PO QAM 05/10/20 05/10/20 History losartan 50 mg PO DAILY 05/10/20 05/10/20 History metformin 500 mg PO QAM 05/10/20 05/10/20 History omeprazole 40 mg PO QAM 05/10/20 05/10/20 History tramadol 50 mg PO TID PRN 05/10/20 05/10/20 History Allergies Allergy/AdvReac Type Severity Reaction Status Date / Time Penicillins Allergy Unknown Verified 05/10/20 10:19 Sulfa (Sulfonamide Allergy Unknown Verified 05/10/20 10:19 Antibiotics) Review of Systems Review of Systems ROS: Yes All systems reviewed with the patient and are negative except as otherwise documented Exam Vital Signs (past 8 hours): - 05/10/20 10:05 05/10/20 10:10 05/10/20 10:30 Temperature 98.1 F Pulse Rate 104 H 100 H 97 H Respiratory Rate 38 H 23 28 H Blood Pressure 148/59 H Pulse Oximetry 88 L 93 05/10/20 10:32 05/10/20 10:58 05/10/20 11:00 Temperature Pulse Rate 98 H 96 H 96 H Respiratory Rate 28 H 27 H 39 H Blood Pressure 132/71 144/63 H 130/63 Pulse Oximetry 100 98 95 05/10/20 11:30 05/10/20 12:22 05/10/20 16:00 Temperature 97.7 F 97.7 F Pulse Rate 95 H 93 H 85 Respiratory Rate 39 H 20 18 Blood Pressure 124/71 140/88 124/72 Pulse Oximetry 97 99 97 Oxygen Delivery Method Nasal Cannula Oxygen Flow Rate 2 Narrative Exam Narrative: Pleasant male lying in bed in no obvious distress HEENT: Normocephalic atraumatic, scalp reveals healed scarring, extraocular muscles are intact, oropharynx reveals dry mucous membranes neck is supple, there is no anterior cervical posterior cervical or supraclavicular adenopathy noted Lungs: Breath sounds decreased on the right, normal breath sounds on the left Cardiac exam: Regular rate and rhythm normal S1-S2 with a 2/6 systolic ejection murmur Abdomen: Soft nontender nondistended, no hepatosplenomegaly, no board-like rigidity, no palpable masses, Extremities: No edema Neuro exam: Cranial nerves 2-12 are intact, motor 5/5 in the upper extremity 5/5 in lower extremity, sensation grossly intact, reflexes are brisk and equal, gait is not assessed Psychiatric exam patient is awake alert appropriate, mood is normal, affect is normal, no hallucinations noted Objective Labs Result Diagrams: 05/10/20 10:09 05/10/20 10:09 Labs: Laboratory Results - last 24 hr 05/10/20 05/10/20 05/10/20 10:09 10:09 10:09 WBC 10.4 RBC 5.46 Hgb 15.1 Hct 45.3 MCV 83.0 MCH 27.7 MCHC 33.4 RDW 14.8 Plt Count 380 Neut % (Auto) 69.2 Lymph % (Auto) 18.5 L [place] % (Auto) 10.8 Eos % (Auto) 0.9 L Baso % (Auto) 0.6 Neut # (Auto) 7200 H Lymph # (Auto) 1900 [place] # (Auto) 1100 H Eos # (Auto) 100 Baso # (Auto) 100 PT 13.8 H INR 1.2 APTT 36 Sodium 138 Potassium 3.2 L Chloride 96 L Carbon Dioxide 30 BUN 25 H Creatinine 0.82 Estimated GFR > 60.0 BUN/Creatinine Ratio 30.5 H Glucose 153 H Calcium 10.1 Magnesium 1.7 Total Bilirubin 0.7 AST 30 ALT 21 Alkaline Phosphatase 100 Total Creatine Kinase 30 L CK-MB (CK-2) TNP CK-MB (CK-2) Rel Index TNP Troponin I 0.014 NT-Pro-B Natriuret Pep 56 Total Protein 7.7 Albumin 4.3 Globulin 3.4 Albumin/Globulin Ratio 1.3 Fluid Color Fluid Appearance Fluid pH Fluid RBC Fld Tot Nucleated Cell Fluid Polynuclear WBCs Fluid Mononuclear WBCs Fluid Eosinophils Fluid Other Cells Body Fluid Clot Fluid Glucose Fluid Total Protein Fluid Albumin Fluid LDH SARS-CoV-2 (PCR) 05/10/20 05/10/20 10:09 13:25 WBC RBC Hgb Hct MCV MCH MCHC RDW Plt Count Neut % (Auto) Lymph % (Auto) [place] % (Auto) Eos % (Auto) Baso % (Auto) Neut # (Auto) Lymph # (Auto) [place] # (Auto) Eos # (Auto) Baso # (Auto) PT INR APTT Sodium Potassium Chloride Carbon Dioxide BUN Creatinine Estimated GFR BUN/Creatinine Ratio Glucose Calcium Magnesium Total Bilirubin AST ALT Alkaline Phosphatase Total Creatine Kinase CK-MB (CK-2) CK-MB (CK-2) Rel Index Troponin I NT-Pro-B Natriuret Pep Total Protein Albumin Globulin Albumin/Globulin Ratio Fluid Color Red Fluid Appearance Cloudy Fluid pH 8.0 Fluid RBC 182725 Fld Tot Nucleated Cell 2592 Fluid Polynuclear WBCs 4 Fluid Mononuclear WBCs 61 Fluid Eosinophils 0 Fluid Other Cells 35 Body Fluid Clot No clots present Fluid Glucose 119 Fluid Total Protein 4.9 Fluid Albumin 2.9 Fluid LDH 1152 SARS-CoV-2 (PCR) Negative Assessment & Plan Assessment & Plan narrative: Impression 1. 84-year-old male admitted with acute hypoxic respiratory failure. Patient presented with hypoxia O2 sat of 80% on room air. He has had a week of progressive shortness of breath associated with orthopnea, weight loss, inability to eat, and overall malaise. Patient ultimately presented to the emergency room and had a chest x-ray which confirmed a right pleural effusion. CT scan also confirmed the following Moderate right pleural effusion with superimposed consolidation suggestive of atelectasis. In addition, there are focal areas of apparent soft tissue density surrounding the effusion at the pleura as above suggestive of soft tissue nodules,concerning for malignancy 2. Mediastinal adenopathy suspicious for metastatic disease. In addition, low-attenuation focus is present within the right hilar region appearing consistent with enlarged hilar lymph node, also concerning for metastatic disease. 3. Soft tissue densities within the right middle lobe as above partially visualized on prior exam. These are concerning for malignancy. 4. Soft tissue mass at the anterior inferior pleura as above with heterogeneousenhancement most suggestive of malignancy. Given patient's recent weight loss, pleural effusion, and CT finding showing soft tissue nodules concerning for malignancy primary consideration is a primary lung malignancy. Patient does have a remote history of smoking. Ultrasound guided thoracentesis yielded 1500 cc of fluid. This will be sent for cytology. Patient's oxygenation has improved and overall breathing has improved significantly. Once tissue diagnosis has been obtained via cytology will refer to Oncology for further evaluation. Patient may benefit from a pleural biopsy if the cytology is unrevealing. 2. Hypertension -will continue losartan -given hypokalemia will hold his hydrochlorothiazide 3. Hyperlipidemia -continue statin 4. Type 2 diabetes -will hold his metformin here in the hospital -will initially sliding scale insulin if indicate -will check hemoglobin A1c 5. Gastroesophageal reflux disease -will continue PPI 6. Abdominal pain, solved 7. 15 lb weight loss, concerning for protein calorie malnutrition, will ask for Nutrition consult, in the setting of a possible malignancy this is concerning as this will contribute significantly to increase morbidity and mortality Patient is admitted to the hospital as an inpatient, we will continue to evaluate and workup his probable malignancy, will ask for nutrition consultation, Patient will be placed on DVT prophylaxis. His is his surrogate decision maker. Quality VTE Deep Vein Thrombosis/Pulmonary Embolism Present on Admission: Yes MIPS - Admit I confirm the patient?s Advance Care Plan is present, Code status is documented, Surrogate decision maker is in patient?s record [If Yes, STOP here]: Yes
[2020-05-10 16:58] LABS: Hemoglobin A1C% w Est Avg Glu 6.8 % (4.0-6.0)
[2020-05-10] MEDS: POTASSIUM CHLORIDE 20 MEQ TAB 40 MEQ PO (17:11)
[2020-05-11 01:04] VITALS: BP 118/72; PULSE 86; RESP 18; TEMP 36.6; O2SAT 93
[2020-05-11] MEDS: ONDANSETRON 4 MG/2 ML INJ IV (03:44)
[2020-05-11] MEDS: SODIUM CHLORIDE 0.9% FLUSH 10 ML IV ×2 (03:44→09:57)
--- NOTE | 2020-05-11 04:19 | PC.NURSE ---
Addendum entered by Sandra Luz R.N. 05/11/20 04:24: correction to previous charting: does complain of 4/10 pain/tenderness across right upper abdomen but declines offer of pain medication Original Note: Patient is alert and oriented. Breath sounds CTA but diminished in right LL; RA sat 93% and denies SOB either at rest or with exertion. HRR. Complains of slight nausea so medicated with Zofran. BT present and is passing flatus. Denies dysuria, frequency or urgency with urination. Able to move self in bed and is up to bathroom with SBA. Denies pain. Reports recent fall so fall risk score is high and bed alarm is activated.
[2020-05-11 05:00] VITALS: BP 114/58; PULSE 91; RESP 18; TEMP 36.7; O2SAT 96
[2020-05-11] MEDS: PANTOPRAZOLE 20 MG TABLET PO (05:52)
[2020-05-11 07:24] VITALS: BP 117/65; PULSE 76; RESP 20; TEMP 36.7; O2SAT 93
[2020-05-11 07:38] VITALS: PULSE 86; RESP 16; O2SAT 95
[2020-05-11] MEDS: LOSARTAN 50 MG TABLET PO (09:57)
[2020-05-11] MEDS: ENOXAPARIN 40 MG/0.4 ML SYRINGE SUBCUT (09:57)
[2020-05-11] MEDS: ASPIRIN EC 81 MG TABLET PO (09:57)
--- NOTE | 2020-05-11 10:17 | P.DS_ITS ---
History of Present Illness History of Present Illness Chief complaint: Shortness of Breath Narrative: The patient is an 84-year-old male with a history of type 2 diabetes hypertension and hyperlipidemia who presents to the hospital for increasing shortness of breath. Patient reports his shortness of breath began about 10 days ago. He had associated right-sided chest wall pain that was worse with palpitation. Shortness of breath was worse when lying flat. It interfered with his ability to eat. His shortness of breath also interfered with his ability to lie flat. The patient was seen in clinic by his primary care provider, Dr. Rocha for abdominal pain. CT of the abdomen and pelvis done on 05/06 did show a large right pleural effusion. As the patient shortness of breath got progressively worse he presented to the emergency room for evaluation. In the emergency department a chest x-ray confirmed a right pleural effusion. CT scan confirmed this. The patient was taken to ultrasound for ultrasound-guided thoracentesis. Of note the CT scan was remarkable for the following: Moderate right pleural effusion with superimposed consolidation suggestive of atelectasis. In addition, there are focal areas of apparent soft tissue density surrounding the effusion at the pleura as above suggestive of soft tissue nodules, concerning for malignancy.2. Mediastinal adenopathy suspicious for metastatic disease. In addition, low-attenuation focus is present within the right hilar region appearing con sistent with enlarged hilar lymph node, also concerning for metastatic disease. 3. Soft tissue densities within the right middle lobe as above partially visualized on prior exam. These are concerning for malignancy. 4. Soft tissue mass at the anterior inferior pleura as above with heterogeneousenhancement most suggestive of malignancy. Patient underwent a ultrasound-guided thoracentesis and 1500 cc of fluid was removed. Fluid has been sent for cytology. Patient reports he feels significantly improved in terms of his breathing. He does continue have some tenderness along the right side of the chest wall. He denies any other pain. He has had no headache blurred vision or double vision. He had recent cataract surgery and has had some difficulty with vision out of the right eye. He denies nausea vomiting or diarrhea. He has had no hematemesis melena or bright red blood per rectum. He has had no lower extremity edema. He denies any dysuria hematuria pyuria. He has had no cough, fever, chills, or other symptoms. The patient is admitted to the hospital for evaluation of a large right pleural effusion with concern for possible lung malignancy Patient was a prior smoker. He quit 30 years ago. Discharge Providers Provider Date of admission: 05/10/20 11:42 Discharge Date: 05/11/20 Primary care physician: Nico Rocha MD Consults: 05/10/20 10:11 Consult to Respiratory Therapy Evaluate & Treat Comment: Physician Instructions: Evaluate and treat 05/10/20 16:28 Consult to Dietitian, Adult Routine Comment: 15 pound weight loss Reason For Exam: weight loss 05/11/20 09:00 Consult to Home Health Routine Comment: [facility] ACCEPTED THE REFERRAL Reason For Exam: HH RN AT D/C Discharge provider: Sherrie Fernandez MD Summary Hospital Course Discharge Diagnosis: 1. Acute hypoxic respiratory failure, present on admission. Secondary to large right pleural effusion. Patient has been markedly short of breath secondary to the S pleural effusion 2. Status post thoracentesis, 1500 cc of pleural fluid removed 3. Probable lung cancer, awaiting cytology from pleural fluid 4. Hypertension 5. Hyperlipidemia 6. GERD 7. Type 2 diabetes 8. Hypokalemia present on admission now resolved Hospital Course: The patient is an 84-year-old male who was admitted to the hospital for shortness of breath. Patient underwent CT of the abdomen 3 days ago for complaints of abdominal pain. The CT of the abdomen was negative. However right pleural effusion was identified. The patient had progressive shortness of breath. He was seen in the emergency room where chest x-ray confirmed the right effusion. He underwent CT scan of the chest which revealed a large right pleural effusion with nodular areas in the lungs suggestive of metastatic disease. The patient underwent a thoracentesis were 1.5 L of fluid were removed. The LDH was elevated at over 1100. The patient's fluid was sent for cytology. Spoke to stay pathology today and they informed us that the cytology results will take at least 1 week. The patient is no longer hypoxic at rest. His shortness of breath has improved. His appetite is improved. He reports feeling markedly improved and is deemed appropriate for discharge home. The patient will be referred to the [facility] for follow-up of the pleural fluid. In addition he will follow-up with his primary care provider Dr. Gelacio Estrada next week for follow-up of the cytology and to ensure that his oncology appointment is arranged. Patient has no complaints and is deemed appropriate for discharge home. Exam Vital Signs (past 8 hours): - 05/11/20 05:00 05/11/20 07:24 05/11/20 07:38 Temperature 98.0 F 98.1 F Pulse Rate 91 H 76 86 Respiratory Rate 18 20 16 Blood Pressure 114/58 L 117/65 Pulse Oximetry 96 93 95 Oxygen Delivery Method Room Air Oxygen Flow Rate 0 Narrative Exam Narrative: Delightful elderly gentleman lying in bed in no obvious distress Lungs: Decreased breath sounds on the right clear breath sounds on the left Cardiac exam: Regular rate and rhythm normal S1-S2 with a 2/6 systolic ejection murmur Abdomen: Soft nontender nondistended Extremities: No edema Objective Labs Result Diagrams: 05/10/20 10:09 05/10/20 10:09 Labs: Laboratory Results - last 24 hr 05/10/20 05/10/20 05/10/20 10:09 10:09 10:09 WBC 10.4 RBC 5.46 Hgb 15.1 Hct 45.3 MCV 83.0 MCH 27.7 MCHC 33.4 RDW 14.8 Plt Count 380 Neut % (Auto) 69.2 Lymph % (Auto) 18.5 L [place] % (Auto) 10.8 Eos % (Auto) 0.9 L Baso % (Auto) 0.6 Neut # (Auto) 7200 H Lymph # (Auto) 1900 [place] # (Auto) 1100 H Eos # (Auto) 100 Baso # (Auto) 100 PT 13.8 H INR 1.2 APTT 36 Sodium 138 Potassium 3.2 L Chloride 96 L Carbon Dioxide 30 BUN 25 H Creatinine 0.82 Estimated GFR > 60.0 BUN/Creatinine Ratio 30.5 H Glucose 153 H Hemoglobin A1c Calcium 10.1 Magnesium 1.7 Total Bilirubin 0.7 AST 30 ALT 21 Alkaline Phosphatase 100 Total Creatine Kinase 30 L CK-MB (CK-2) TNP CK-MB (CK-2) Rel Index TNP Troponin I 0.014 NT-Pro-B Natriuret Pep 56 Total Protein 7.7 Albumin 4.3 Globulin 3.4 Albumin/Globulin Ratio 1.3 Fluid Color Fluid Appearance Fluid pH Fluid RBC Fld Tot Nucleated Cell Fluid Polynuclear WBCs Fluid Mononuclear WBCs Fluid Eosinophils Fluid Other Cells Body Fluid Clot Fluid Glucose Fluid Total Protein Fluid Albumin Fluid LDH SARS-CoV-2 (PCR) 05/10/20 05/10/20 05/10/20 10:09 10:09 13:25 WBC RBC Hgb Hct MCV MCH MCHC RDW Plt Count Neut % (Auto) Lymph % (Auto) [place] % (Auto) Eos % (Auto) Baso % (Auto) Neut # (Auto) Lymph # (Auto) [place] # (Auto) Eos # (Auto) Baso # (Auto) PT INR APTT Sodium Potassium Chloride Carbon Dioxide BUN Creatinine Estimated GFR BUN/Creatinine Ratio Glucose Hemoglobin A1c 6.8 H Calcium Magnesium Total Bilirubin AST ALT Alkaline Phosphatase Total Creatine Kinase CK-MB (CK-2) CK-MB (CK-2) Rel Index Troponin I NT-Pro-B Natriuret Pep Total Protein Albumin Globulin Albumin/Globulin Ratio Fluid Color Red Fluid Appearance Cloudy Fluid pH 8.0 Fluid RBC 275871 Fld Tot Nucleated Cell 2592 Fluid Polynuclear WBCs 4 Fluid Mononuclear WBCs 61 Fluid Eosinophils 0 Fluid Other Cells 35 Body Fluid Clot No clots present Fluid Glucose 119 Fluid Total Protein 4.9 Fluid Albumin 2.9 Fluid LDH 1152 SARS-CoV-2 (PCR) Negative [facility] Medical History (Updated 05/10/20 @ 16:49 by Sherrie Fernandez MD) Diabetes mellitus Gastroesophageal reflux disease Hyperlipidemia Hypertension Surgical History H/O right wrist surgery H/O rotator cuff surgery History of carpal tunnel surgery History of carpal tunnel surgery Hx of appendectomy Hx of inguinal hernia surgery Hx of knee surgery Previous back surgery Family History Father Cardiac disease Social History household members: spouse Smoking Status: Former smoker alcohol intake: current Discharge Assessment & Plan Assessment and Plan Assessment: 1. Acute hypoxic respiratory failure, present on admission. Patient with a room air sat of 80% and marked shortness of breath. 2. Status post thoracentesis, 1500 cc removed 3. Probable lung cancer, cytology pending 4. Hypertension 5. Hyperlipidemia 6. Type 2 diabetes 7. GERD Plan of Treatment: Patient will be discharged home today. He will follow-up with [facility] for further evaluation following the results of his cytology report. In addition the patient will follow-up with Dr. Rocha in 1 week for evaluation of recurrent pleural effusion Discharge Plan Discharge Plan Patient Disposition: Home Provider Discharge Comment: referra to [facility] for evaluation of possible lung cancer. Awaiting Cytology results from Thoracentesis. Results available 05/17/2020 Discharge orders & Medications Prescriptions: Continued losartan 50 mg tablet 50 mg PO DAILY RF: 0 atorvastatin 40 mg tablet 40 mg PO DAILY RF: 0 omeprazole 40 mg capsule,delayed release(DR/EC) 40 mg PO QAM RF: 0 tramadol 50 mg tablet 50 mg PO TID PRN (Reason: Pain (Scale Score 7-10)) RF: 0 hydrochlorothiazide 25 mg tablet 25 mg PO QAM RF: 0 aspirin 81 mg Tablet 81 mg PO DAILY RF: 0 metformin 500 mg PO QAM RF: 0 Follow up/Referrals: Nico Rocha MD [Primary Care Provider] - Discharge Health Status Multidrug resistant organism: No MDRO Diet/Activity/Treatments Diet: Low-sodium and Low-cholesterol Discharge Data Primary Care Provider: Nico Rocha Attending Provider: Sherrie Fernandez VTE Deep Vein Thrombosis/Pulmonary Embolism Present on Admission: Yes
--- NOTE | 2020-05-11 11:08 | PC.NURSE ---
Assess- Patient is on RA, VSS and o2 in the high 90s. He is going to go home today around 1130. BS cta, patient states that he feeling better after having his thoracentesis.
--- NOTE | 2020-05-11 11:19 | DIET.PN ---
Dietary Progress Note Assessment: 84y M c pmhx DM2 and HLD admitted for acute hypoxic respiratory failure (O2 80%) referred to nutrition for 15# weight loss concerning for PCM. Pt reports increased pressure in chest resulting in severely diminished appetite x2w and 15# unintended weight loss during that time (-7% in 2w, severe). Pt reports feeling much better after US-guided thoracentesis resulting in removal of 1500cc fluid from likely malignant effusion c concern for metastatic dz. Pt reports hunger is back and he is tolerating POs. Pt lives in home c who helps c food prep and shopping. He reports increased desire for fruit lately, generally avoids red meats, and eats chicken, fish, and peanut butter on a regular basis. Pt appears to have moderately reduced muscle mass in upper arms, masseter, temples, and moderate fat wasting along jaw line, temples, upper arm and clavicle c pt reporting feeling much weaker than his baseline. 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 Interventions: 1. Encouraged pt to prioritize protein intake for the next few weeks to support immune function and replete muscle mass. Pt enjoys chicken, fish, peanut butter. Pt encouraged to consume 4 oz chicken, 4oz fish, and 2Tbs peanut butter daily to meet high protein needs for nutrition repletion. 2. Because pt has good DM2 control and hx of HLD c strong desire for fruit intake, encouraged pt to consume whole fruit as desired for vitamin and fiber needs. Diet Order: CCD EER: 2,200 kcal (25kcal/kg per overweight PCM), 110g PRO (1.3g/kg per PCM)
--- NOTE | 2020-05-11 12:30 | CM.DANOTE ---
Discharge Planning/Care Management DCP: assessment: case received and discussed in Team Rounds. Dr. Fernandez stated that she planned to d/c pt back home today and that he would need to followup in about a week with [facility]. She stated that she had called over there to give the referral and their staff had told her to give the information to the wardrobe specialty worker, navigator Aydee and she would get it all scheduled. A voice message was left for Aydee Raza/ oncology [employer] vivian same. (did mention to Dr. Fernandez that this was not the usual referral process unless their procedures had changed but she stated she still wanted SAUNDRA Bajwa notified). She also states that Dr. Rocha could confirm the status of the referral once he sees pt. Went to room to check in with pt. COLLINS Khalil confirmed that he left for home about 1130 in company of his . Payer: [facility] Admitted to hospitalist team. PCP: Nico Rocha/ CM Discharge Assessment Start: 05/11/20 12:29 Freq: Status: Active Protocol: Document 05/11/20 12:30 ITV (Rec: 05/11/20 12:30 ITV [id number]) Discharge Planning Assessment Advance Directives? No History Provided By Medical Record Household Members spouse
== END 2020-05-11 11:40 | disposition home or self-care (01) ==
LOC: ED 11:41 → AC 11:43
PROVIDERS: Admitting Provider Internal Medicine; Emergency Provider Emergency Medicine; PCP Internal Medicine; Referring Provider Emergency Medicine; Visit Provider Internal Medicine
DX: J90 Pleural effusion, not elsewhere classified (principal); J96.01 Acute respiratory failure with hypoxia; R10.9 Unspecified abdominal pain; Z87.891 Personal history of nicotine dependence; E11.9 Type 2 diabetes mellitus without complications; E78.5 Hyperlipidemia, unspecified; I10 Essential (primary) hypertension; K21.9 Gastro-esophageal reflux disease without esophagitis; Z20.822 Contact with and (suspected) exposure to COVID-19; Z79.84 Long term (current) use of oral hypoglycemic drugs
CPT/HCPCS: 32555; 36415; 71045; 71260; 80053; 81003; 82042; 82550; 82945; 82962; 83036; 83615; 83735; 83880; 83986; 84157; 84484; 85025; 85610; 85730; 87070; 87075; 87205; 87635; 89051; 93005; 96372; 96374; 99285; G0378; J1650; J2405; Q9967

== ENCOUNTER → 2020-05-14 10:28 | Outpatient (CLI) | payer OTHER, SELFPAY ==
[2020-05-10 14:26] VITALS: BMI 26.1
--- NOTE | 2020-05-14 | DI.RAD.S_ITS ---
PROCEDURE: XR CHEST 1V INDICATIONS: POST THORACENTESIS TECHNIQUE: One view of the chest was acquired. COMPARISON: [facility], , XR CHEST 1V, 05/10/2020, 13:12. [facility], CR, XR CHEST 1V, 05/10/2020, 10:15. FINDINGS: Surgical changes and devices: Surgical clips in the right apex. Status post ACDF. Lungs and pleura: Status post thoracentesis with no evidence of pneumothorax. Blunting of the costophrenic angle on the right is consistent with a small residual pleural effusion. No focal consolidation. Mediastinum: Mediastinal contours appear normal. Heart size is normal. Bones and chest wall: No suspicious bony lesions. Overlying soft tissues appear unremarkable. IMPRESSION: 1. Small right pleural effusion. 2. No pneumothorax status post thoracentesis. Dictated by: Chon Lindsay M.D. on 05/14/2020 at 12:23 Approved by: Chon Lindsay M.D. on 05/14/2020 at 12:24
--- NOTE | 2020-05-14 10:29 | DI.US.S_ITS ---
PROCEDURE: US THORACENTESIS INDICATIONS: Pleural effusion, not elsewhere classified TECHNIQUE: The indications, alternatives, benefits, risks, and complications of the procedure were explained to the patient. Written informed consent was obtained and placed in the chart. The chest was examined sonographically, and an appropriate site was chosen for thoracentesis. The skin was prepared and draped in the usual sterile fashion, and 1% lidocaine was infiltrated from the skin down through the pleural surface. A 19-gauge catheter-covered needle was then introduced into the pleural space, the catheter was advanced and the needle was withdrawn, and thereafter pleural fluid was aspirated. The catheter was then removed and a dressing was applied. COMPARISON: [facility], THORACENTESIS, 05/10/2020, 12:51. FINDINGS: Access site: Right hemithorax. Needle: One-Step centesis catheter with introducer needle. Fluid volume and description: 1.5 liters read fluid. No clots. Fluid sent for diagnostic testing: No Medications: 1% lidocaine for local anaesthesia. Complications: None; post-procedural chest radiograph is pending to assess for pneumothorax. IMPRESSION: Successful ultrasound-guided thoracentesis. Dictated by: Chon Lindsay M.D. on 05/14/2020 at 13:13 Approved by: Chon Lindsay M.D. on 05/14/2020 at 13:14
== END ==
PROVIDERS: PCP Internal Medicine; Referring Provider Internal Medicine; Visit Provider Internal Medicine
DX: J90 Pleural effusion, not elsewhere classified (principal)
CPT/HCPCS: 32555; 71045

== ENCOUNTER → 2020-05-21 12:30 | Outpatient (CLI) | payer OTHER, SELFPAY ==
[2020-05-10 14:26] VITALS: BMI 26.1
--- NOTE | 2020-05-21 | DI.RAD.S_ITS ---
PROCEDURE: XR CHEST 1V INDICATIONS: post thora TECHNIQUE: One view of the chest was acquired. COMPARISON: [facility], CT, CT CHEST W CON, 05/10/2020, 10:47. [facility], CR, XR CHEST 1V, 05/14/2020, 11:14. [facility], CR, XR CHEST 1V, 05/10/2020, 13:12. FINDINGS: Surgical changes and devices: Stable over time.. Lungs and pleura: Lungs are unchanged, with scattered small nodules and reduction and subpulmonic right pleural effusion after 1500 cc serosanguineous thoracentesis performed approximately 0.5 hour ago.. No pleural effusions or pneumothorax. Mediastinum: Mediastinal contours appear normal. Heart size is normal. Bones and chest wall: No suspicious bony lesions. Overlying soft tissues appear unremarkable. IMPRESSION: No pneumothorax after for right-sided thoracentesis. Stable postsurgical change. Stable abnormal appearance of the lung parenchyma with small nodules scattered within the lung parenchyma potentially a manifestation of pulmonary metastatic disease. The 1500 cc thoracentesis performed approximately 0.5 hour ago was serosanguineous. Dictated by: Kyle Bravo M.D. on 05/21/2020 at 13:57 Approved by: Kyle Bravo M.D. on 05/21/2020 at 13:58
--- NOTE | 2020-05-21 12:30 | DI.US.S_ITS ---
PROCEDURE: US THORACENTESIS INDICATIONS: Symptomatic recurrence of malignant effusion TECHNIQUE: The indications, alternatives, benefits, risks, and complications of the procedure were explained to the patient. Written informed consent was obtained and placed in the chart. The chest was examined sonographically, and an appropriate site was chosen for thoracentesis. The skin was prepared and draped in the usual sterile fashion, and 1% lidocaine was infiltrated from the skin down through the pleural surface. A 19-gauge catheter-covered needle was then introduced into the pleural space, the catheter was advanced and the needle was withdrawn, and thereafter pleural fluid was aspirated. The catheter was then removed and a dressing was applied. COMPARISON: [facility], THORACENTESIS, 05/14/2020, 10:29. [facility], THORACENTESIS, 05/10/2020, 12:51. FINDINGS: Access site: Right hemithorax Needle: One-Step centesis catheter with introducer needle. Fluid volume and description: 1500 cc, serosanguineous Fluid sent for diagnostic testing: Not requested Medications: 1% lidocaine for local anaesthesia. Complications: None; post-procedural chest radiograph is pending to assess for pneumothorax. IMPRESSION: Successful ultrasound-guided thoracentesis. Dictated by: Kyle Bravo M.D. on 05/21/2020 at 15:42 Approved by: Kyle Bravo M.D. on 05/21/2020 at 15:43
== END ==
PROVIDERS: PCP Internal Medicine; Referring Provider Internal Medicine; Visit Provider Internal Medicine
DX: R91.8 Other nonspecific abnormal finding of lung field (principal); J91.0 Malignant pleural effusion
CPT/HCPCS: 32555; 71045

== ENCOUNTER → 2020-05-26 10:49 | Outpatient (CLI) | payer OTHER, SELFPAY ==
[2020-05-10 14:26] VITALS: BMI 26.1
--- NOTE | 2020-05-26 | DI.RAD.S_ITS ---
PROCEDURE: XR CHEST 1V INDICATIONS: post t thoracentesis TECHNIQUE: One view of the chest was acquired. COMPARISON: [facility], CR, XR CHEST 1V, 05/21/2020, 13:42. FINDINGS: Surgical changes and devices: None. Lungs and pleura: Lungs are clear. Trace right-sided pleural fluid collection. No pneumothorax. Mediastinum: Mediastinal contours appear normal. Heart size is normal. Bones and chest wall: No suspicious bony lesions. Overlying soft tissues appear unremarkable. IMPRESSION: No post thoracentesis pneumothorax. Dictated by: Ami Sykes MD, PhD on 05/26/2020 at 11:36 Approved by: Ami Sykes MD, PhD on 05/26/2020 at 11:37
--- NOTE | 2020-05-26 10:49 | DI.US.S_ITS ---
PROCEDURE: US THORACENTESIS INDICATIONS: Symptomatic malignant pleural effusion TECHNIQUE: The indications, alternatives, benefits, risks, and complications of the procedure were explained to the patient. Written informed consent was obtained and placed in the chart. The chest was examined sonographically, and an appropriate site was chosen for thoracentesis. The skin was prepared and draped in the usual sterile fashion, and 1% lidocaine was infiltrated from the skin down through the pleural surface. A 19-gauge catheter-covered needle was then introduced into the pleural space, the catheter was advanced and the needle was withdrawn, and thereafter pleural fluid was aspirated. The catheter was then removed and a dressing was applied. COMPARISON: None. FINDINGS: Access site: Right hemithorax. Needle: One-Step centesis catheter with introducer needle. Fluid volume and description: 1500 cubic centimeters of bloody fluid Fluid sent for diagnostic testing: Not requested. Medications: 1% lidocaine for local anaesthesia. Complications: None; post-procedural chest radiograph is pending to assess for pneumothorax. IMPRESSION: Successful ultrasound-guided thoracentesis. No immediate complications. Dictated by: Ami Sykes MD, PhD on 05/26/2020 at 16:09 Approved by: Ami Sykes MD, PhD on 05/26/2020 at 16:10
== END ==
PROVIDERS: PCP Internal Medicine; Referring Provider Internal Medicine; Visit Provider Internal Medicine
DX: J91.0 Malignant pleural effusion; C80.1 Malignant (primary) neoplasm, unspecified
CPT/HCPCS: 32555; 71045

== ENCOUNTER 2020-05-27 09:07 | Outpatient (CLI) | payer OTHER, SELFPAY ==
[2020-05-10 14:26] VITALS: BMI 26.1
[2020-05-27] VITALS (8 sets, daily range): BP systolic 84–138; BP diastolic 52–68; PULSE 99–111; RESP 18–21; TEMP 36.9–37.1; O2SAT 95–99; BMI 25.2
[2020-05-27] MEDS: fentaNYL 100 MCG/2 ML INJ 50 MCG IV (10:29)
[2020-05-27] MEDS: MIDAZOLAM 2 MG/2 ML VIAL 1 MG IV (11:07)
== END 2020-05-27 13:05 | disposition home or self-care (01) ==
PROVIDERS: PCP Internal Medicine; Referring Provider Internal Medicine; Visit Provider Internal Medicine
PROC: BB24ZZZ Computerized Tomography (CT Scan) of Bilateral Lungs (ICD-10-PCS; CPT 32408; principal; 2020-05-27 10:00)
DX: J90 Pleural effusion, not elsewhere classified (principal); C76.8 Malignant neoplasm of other specified ill-defined sites; Z53.09 Procedure and treatment not carried out because of other contraindication
CPT/HCPCS: 32408; 36415; 77012; 85025; J2250; J3010

== ENCOUNTER → 2020-05-28 08:48 | Outpatient (CLI) | payer OTHER, SELFPAY ==
[2020-05-10 14:26] VITALS: BMI 26.1
--- NOTE | 2020-05-28 08:49 | DI.MRI.S_ITS ---
PROCEDURE: MR HEAD/BRAIN WO/W CON INDICATIONS: Staging lung cancer TECHNIQUE: Noncontrast axial T1 spin echo, axial T2 fast spin echo, sagittal and axial FLAIR, coronal T2 fast spin echo, axial gradient echo, axial diffusion and ADC through the brain. After the administration of contrast, axial and coronal T1 spin echo with fat saturation through the brain. COMPARISON: None. FINDINGS: Image quality: Partially degraded by motion artifact. CSF spaces: Basal cisterns are patent. No extra-axial fluid collections. Ventricles are normal in size and shape. Brain: No midline shift. No intracranial bleeds or masses. No abnormal intracranial enhancement. There is cerebral volume loss for age. There is periventricular white matter chronic small vessel ischemic change. The brainstem appears normal. Diffusion-weighted images demonstrate no acute ischemic insults. No chronic ischemic insults. Normal intravascular flow voids are present. Skull and face: Calvarial marrow is normal in signal. Orbits appear normal. Sinuses: Sinuses and mastoids appear clear. IMPRESSION: 1. Volume loss and small vessel ischemic disease. 2. No evidence of malignancy. Dictated by: Jaylen Winchester M.D. on 05/28/2020 at 11:05 Approved by: Jaylen Winchester M.D. on 05/28/2020 at 11:06
== END ==
PROVIDERS: PCP Internal Medicine; Referring Provider Internal Medicine; Visit Provider Internal Medicine
DX: C7A.8 Other malignant neuroendocrine tumors (principal); J91.0 Malignant pleural effusion
CPT/HCPCS: 70553

== ENCOUNTER 2020-05-31 10:16 | Emergency (ER) | payer OTHER, SELFPAY ==
[2020-05-10 14:26] VITALS: BMI 26.1
[2020-05-31] VITALS (18 sets, daily range): BP systolic 92–128; BP diastolic 51–78; PULSE 101–116; RESP 24–38; TEMP 36.9; O2SAT 85–99
--- NOTE | 2020-05-31 10:39 | DI.RAD.S_ITS ---
PROCEDURE: XR CHEST 1V INDICATIONS: dyspnea TECHNIQUE: One view of the chest was acquired. COMPARISON: [facility], CR, XR CHEST 1V, 05/26/2020, 11:20. [facility], CR, XR CHEST 1V, 05/21/2020, 13:42. FINDINGS: Surgical changes and devices: None. Lungs and pleura: Lungs are abnormal, with right greater than left alveolar infiltration, to the degree that a moderate degree of pneumonia on the right is present. Select none prior right thyroid region surgical clips.. No pleural effusions or pneumothorax. Mediastinum: Mediastinal contours appear normal. Heart size is normal. Bones and chest wall: No suspicious bony lesions. Overlying soft tissues appear unremarkable. IMPRESSION: Right greater than left pneumonia, possible subpulmonic right pleural effusion. Surgical clips indicate right thyroidectomy in the past. Tendon transfer jenifer noted at the right humeral head. Dictated by: Kyle Bravo M.D. on 05/31/2020 at 11:00 Approved by: Kyle Bravo M.D. on 05/31/2020 at 11:01
--- NOTE | 2020-05-31 10:39 | ED.GENADULT ---
HPI - General Adult General Chief complaint: Shortness of Breath/Dyspnea Stated complaint: lung cancer, right lung filled w/fluid, SOB Time Seen by Provider: 05/31/20 10:21 Source: patient Mode of arrival: Ambulatory Limitations: no limitations History of Present Illness HPI narrative: 84-year-old gentleman with newly does knows to lung cancer with recurrent pleural effusion, hypertension, diabetes, anemia and hyperlipidemia presents with increasing dyspnea and concerned that his pleural effusion is significant enough that he is not going to be able to wait until SundayJune 02 for his next scheduled thoracentesis. He is having trouble laying down flat, he is tachypneic, tachycardic and oxygen saturations are 85% on room air. He denies fevers, palpitations, vomiting, diarrhea, abdominal pain. Initial thoracentesis on 05/10 removed 1500cc. 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 In this case, expression of the lung marker TTF1 supports a lung primary, ... isconsidered more in keeping with a lower grade neuroendocrine carcinoma oflung (such as an atypical carcinoid) as opposed to a high grade (small cell) neuroendocrine carcinoma of lung. He had had a needle biopsy of the lower thoracic chest wall mass and subsequent therapeutic thoracentesis the week of 05/19 and 05/26 with oncology recommendations to do this as often as necessary Related Data Home Medications Medication Instructions Recorded Confirmed atorvastatin 40 mg PO DAILY 05/10/20 05/27/20 hydrochlorothiazide 25 mg PO QAM 05/10/20 05/27/20 losartan 50 mg PO DAILY 05/10/20 05/27/20 metformin 500 mg PO QAM 05/10/20 05/27/20 omeprazole 40 mg PO QAM 05/10/20 05/27/20 cholecalciferol (vitamin D3) 1,000 unit DAILY 05/19/20 05/27/20 [Vitamin D3] ferrous sulfate [Iron (ferrous 325 mg PO DAILY 05/19/20 05/27/20 sulfate)] multivitamin 1 tab PO DAILY 05/19/20 05/27/20 omega-3 fatty acids [Fish Oil] 1,000 mg PO DAILY 05/19/20 05/27/20 Previous Rx's Medication Instructions Recorded hydrocodone-acetaminophen 1 tab PO Q4H PRN #30 tab 05/19/20 Allergies Allergy/AdvReac Type Severity Reaction Status Date / Time Penicillins Allergy Unknown Verified 05/27/20 09:35 Sulfa (Sulfonamide Allergy Unknown Verified 05/27/20 09:35 Antibiotics) Review of Systems Review of Systems Narrative: Positive for dyspnea, orthopnea, right chest wall pain, weight loss, Remainder of complete review of systems is otherwise unremarkable except for that included in the HPI. Patient History Medical History Diabetes mellitus Gastroesophageal reflux disease Hyperlipidemia Hypertension Pleural effusion Surgical History H/O right wrist surgery H/O rotator cuff surgery History of carpal tunnel surgery History of carpal tunnel surgery Hx of appendectomy Hx of inguinal hernia surgery Hx of knee surgery Previous back surgery Family History Father Cardiac disease Social History household members: spouse Smoking Status: Former smoker alcohol intake: current Smoking Status: Former smoker alcohol intake frequency: holidays/special occasions only Substance Use Type: does not use Exam Narrative Exam Narrative: General: Pale and tachypneic but no acute distress. Able to give a complete history, speaking in full sentences without significant respiratory distress HEENT: Moist mucous membranes, normal sclera with reactive pupils, Neck: No JVD, supple Respiratory: Absent lung sounds in the lower 2/3 of the right lung. Remaining lung ruiz reveal no wheezing or rhonchi. Cardiac: Tachycardic with Regular rate and rhythm no murmurs no bruits Abdomen: Soft, minor tenderness right lower quadrant that he describes as chronic, good bowel tones, no flank pain Skin: Pale, Warm and dry, no rashes Neurologic: Grossly neurologically intact with no obvious asymmetries or abnormalities Extremities: No trauma, well perfused Psych: Cooperative, appropriate insight and affect Initial Vital Signs Initial Vital Signs: Vital Signs Temperature 98.4 F 05/31/20 10:20 Pulse Rate 116 H 05/31/20 10:20 Respiratory Rate 32 H 05/31/20 10:20 Blood Pressure 128/67 05/31/20 10:20 Pulse Oximetry 85 L 05/31/20 10:20 Procedures [facility] Procedure Name of Procedure: Thoracentesis Side (if applicable): right Time out performed: Yes Technique/Description of procedure performed: Thoracentesis catheter placed into the right lower lung field under ultrasound guidance to drain pleural fluid 2 cc of 1% xylocaine with epinephrine for local anesthetic Needle introduced over the rib and nice return of grossly bloody pleural fluid. Total of 2950cc of bloody pleural fluid is returned. Catheter is removed and patient tolerated the procedure well Patient tolerated procedure: Well and No complications Course Orders Ordered: ED Orders 05/31/20 10:39 XR chest 1V Stat 05/31/20 10:57 Complete Blood Count AUTO DIFF Stat Comprehensive Metabolic Panel Stat 05/31/20 12:27 XR chest 1V Stat Discontinued Medications Sodium Chloride (Normal Saline 0.9%) 1,000 mls @ 1,000 mls/hr IV BOLUS ONE Stop: 05/31/20 13:31 Last Infusion: 05/31/20 13:05 Dose: 0 mls/hr Documented by: Admin: 05/31/20 12:34 Dose: 1,000 mls/hr Documented by: BRENDON Ketorolac Tromethamine (Ketorolac 60 Mg/2 Ml Vial) 15 mg IV NOW ONE Stop: 05/31/20 12:27 Last Admin: 05/31/20 12:33 Dose: 15 mg Documented by: BRENDON Vital Signs Vital signs: Vital Signs - 8 hr 05/31/20 10:20 05/31/20 10:22 05/31/20 10:30 Temperature 98.4 F Pulse Rate 116 H 112 H 112 H Respiratory Rate 32 H 32 H 28 H Blood Pressure 128/67 128/67 Pulse Oximetry 85 L 88 L 94 05/31/20 10:45 05/31/20 10:47 05/31/20 11:00 Temperature Pulse Rate 110 H 111 H 110 H Respiratory Rate 24 29 H 35 H Blood Pressure 108/78 97/62 Pulse Oximetry 96 98 05/31/20 11:15 05/31/20 11:30 05/31/20 11:45 Temperature Pulse Rate 105 H 104 H 113 H Respiratory Rate 34 H 35 H 38 H Blood Pressure 115/61 123/68 102/72 Pulse Oximetry 99 98 05/31/20 12:00 05/31/20 12:13 05/31/20 12:15 Temperature Pulse Rate 115 H 111 H 113 H Respiratory Rate 25 H Blood Pressure 104/68 96/59 L 92/58 L Pulse Oximetry 99 97 05/31/20 12:30 05/31/20 12:45 05/31/20 13:00 Temperature Pulse Rate 112 H 105 H 101 H Respiratory Rate 30 H 24 Blood Pressure 103/68 115/65 Pulse Oximetry 96 95 96 05/31/20 13:15 05/31/20 13:30 05/31/20 13:45 Temperature Pulse Rate 104 H 104 H 101 H Respiratory Rate Blood Pressure 113/58 L 103/60 101/51 L Pulse Oximetry 95 96 94 Medical Decision Making Medical Records Medical records reviewed: Yes I reviewed the patient's medical records. Lab Data Lab results reviewed: Yes I reviewed the patient's lab results. Result diagrams: 05/31/20 10:57 05/31/20 10:57 Labs: Lab Results 05/31/20 05/31/20 Range/Units 10:57 10:57 WBC 8.7 (4.5-11.0) X10^3/uL RBC 4.79 (4.5-5.9) X10^6/uL Hgb 13.2 L (13.5-17.5) g/dL Hct 39.1 L (41-53) % MCV 81.5 (80-100) fL MCH 27.5 (26-34) PG MCHC 33.8 (30-36) % RDW 15.0 H (11.6-14.8) % Plt Count 299 (150-400) X10^3/uL Neut % (Auto) 74.0 (50-75) % Lymph % (Auto) 13.3 L (25-40) % [place] % (Auto) 8.6 (3-14) % Eos % (Auto) 3.2 (2-4) % Baso % (Auto) 0.9 (0-2) % Neut # (Auto) 6400 (1695-4768) /uL Lymph # (Auto) 1200 (1569-4906) /uL [place] # (Auto) 700 (0-900) /uL Eos # (Auto) 300 (0-450) /uL Baso # (Auto) 100 (0-100) /uL Sodium 135 L (137-145) mmol/L Potassium 3.7 (3.4-5.1) mmol/L Chloride 95 L (98-107) mmol/L Carbon Dioxide 31 (22-32) mmol/L BUN 27 H (9-20) mg/dL Creatinine 0.89 (0.66-1.25) mg/dL Estimated GFR > 60.0 (>60) mL/min BUN/Creatinine Ratio 30.3 H (6-22) Glucose 150 H (80-110) mg/dL Calcium 9.9 (8.4-10.2) mg/dL Total Bilirubin 0.6 (0.2-1.3) mg/dL AST 41 (17-59) IU/L ALT 30 (<50) IU/L Alkaline Phosphatase 101 (38-126) U/L Total Protein 7.1 (6.3-8.2) g/dL Albumin 3.7 (3.5-5.0) g/dL Globulin 3.4 (1.7-4.1) g/dL Albumin/Globulin Ratio 1.1 (1.0-2.8) Imaging Data Chest x-ray: Attestation: I personally reviewed and interpreted this imaging study as follows: My Impression: I disagree with radiology interpretation. This looks like a recurrent right pleural effusion. Bedside ultrasound confirms large volume of fluid. Radiologist's Impression: FINDINGS: Surgical changes and devices: None. Lungs and pleura: Lungs are abnormal, with right greater than left alveolar infiltration, to the degree that a moderate degree of pneumonia on the right is present. Select none prior right thyroid region surgical clips.. No pleural effusions or pneumothorax. Mediastinum: Mediastinal contours appear normal. Heart size is normal. Bones and chest wall: No suspicious bony lesions. Overlying soft tissues appear unremarkable. IMPRESSION: Right greater than left pneumonia, possible subpulmonic right pleural effusion. Surgical clips indicate right thyroidectomy in the past. Tendon transfer jenifer noted at the right humeral head. Dictated by: Kyle Bravo M.D. on 05/31/2020 at 11:00 Post thoracentesis chest x-ray: Radiologist's Impression: FINDINGS: Surgical changes and devices: Surgical clips project at the base of neck. Soft tissue anchors project in the right humeral head.. Improved aeration of the right lung base, and increased lung volumes. No pneumothorax. Right pleural effusion decreased . Persistent mild patchy opacity seen in the right upper lobe and right lower lobe. Background interstitial changes and scarring Mediastinum: Mediastinal contours appear normal. Heart size is normal. Bones and chest wall: No suspicious bony lesions. Overlying soft tissues appear unremarkable. IMPRESSION: Improved right pleural effusion. 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 Thoracentesis was done in the emergency room with 2950 cc of bloody pleural fluid removed without difficulty. Patient tolerated the procedure well with decreased heart rate, blood pressure maintained and no need for oxygen with good saturations at this point. Chest x-ray shows significantly better lung aeration and no pneumothorax. He is safe for home discharge and will follow-up with Dr. Mosquera in the near future Discharge Plan Departure Patient Disposition: Home Clinical Impression: Pleural effusion Instructions: DI for Thoracentesis Activity Restrictions/Additional Instructions: Thank you for coming in today. We got a total of 2950cc of fluid out of your right lung today. Please keep your scheduled appointment with Dr. Mosquera and please make sure you discussed with him and ongoing plan for helping with control of this reoccurring fluid and the symptoms that are so uncomfortable for you. I wish you the best Prescriptions: No Action losartan 50 mg tablet 50 mg PO DAILY RF: 0 atorvastatin 40 mg tablet 40 mg PO DAILY RF: 0 omeprazole 40 mg capsule,delayed release(DR/EC) 40 mg PO QAM RF: 0 hydrochlorothiazide 25 mg tablet 25 mg PO QAM RF: 0 metformin 500 mg PO QAM RF: 0 multivitamin Tablet 1 tab PO DAILY RF: 0 ferrous sulfate [Iron (ferrous sulfate)] 325 mg (65 mg iron) Tablet 325 mg PO DAILY RF: 0 cholecalciferol (vitamin D3) [Vitamin D3] 25 mcg (1,000 unit) Capsule 1,000 unit DAILY RF: 0 Fish Oil Capsule 1,000 mg PO DAILY RF: 0 hydrocodone-acetaminophen 5-325 mg Tablet 1 tab PO Q4H PRN (Reason: Pain (Scale Score 4-6)) Qty: 30 RF: 0 Referrals: Nico Rocha MD [Primary Care Provider] - David Mosquera MD [Physician] -
[2020-05-31 11:07] LABS: Add Manual Diff / Slide Review NO; Basophils Absolute Auto 100 /uL (0-100); Basophils Percent Auto 0.9 % (0-2); Eosinophils Absolute Auto 300 /uL (0-450); Eosinophils Percent Auto 3.2 % (2-4); Hematocrit 39.1 % (41-53); Hemoglobin 13.2 g/dL (13.5-17.5); Lymphocytes Absolute Auto 1200 /uL (1100-4500); Lymphocytes Percent Auto 13.3 % (25-40); Mean Corpuscular HGB Conc 33.8 % (30-36); Mean Corpuscular Hemoglobin 27.5 PG (26-34); Mean Corpuscular Volume 81.5 fL (80-100); Monocytes Absolute Auto 700 /uL (0-900); Monocytes Percent Auto 8.6 % (3-14); Neutrophils Absolute Auto 6400 /uL (1500-7000); Platelet Count 299 X10^3/uL (150-400); Red Blood Cell Count 4.79 X10^6/uL (4.5-5.9); White Blood Cell Count 8.7 X10^3/uL (4.5-11.0)
[2020-05-31 11:22] LABS: Alanine Aminotransferase 30 IU/L (<50); Albumin 3.7 g/dL (3.5-5.0); Albumin Globulin Ratio 1.1 (1.0-2.8); Alkaline Phosphatase 101 U/L (38-126); Aspartate Aminotransferase 41 IU/L (17-59); BUN Creatinine Ratio 30.3 (6-22); Bilirubin Total 0.6 mg/dL (0.2-1.3); Blood Urea Nitrogen 27 mg/dL (9-20); Calcium 9.9 mg/dL (8.4-10.2); Carbon Dioxide 31 mmol/L (22-32); Chloride 95 mmol/L (98-107); Estimated Glomerular Filt Rate > 60.0 mL/min (>60); Globulin 3.4 g/dL (1.7-4.1); Glucose 150 mg/dL (80-110); HEMOLYSIS < 15 (0-50); Potassium 3.7 mmol/L (3.4-5.1); Sodium 135 mmol/L (137-145); Total Protein 7.1 g/dL (6.3-8.2)
--- NOTE | 2020-05-31 12:27 | DI.RAD.S_ITS ---
PROCEDURE: XR CHEST 1V INDICATIONS: post thoracentesis TECHNIQUE: One view of the chest was acquired. COMPARISON: [facility], , XR CHEST 1V, 05/31/2020, 10:41. FINDINGS: Surgical changes and devices: Surgical clips project at the base of neck. Soft tissue anchors project in the right humeral head.. Improved aeration of the right lung base, and increased lung volumes. No pneumothorax. Right pleural effusion decreased . Persistent mild patchy opacity seen in the right upper lobe and right lower lobe. Background interstitial changes and scarring Mediastinum: Mediastinal contours appear normal. Heart size is normal. Bones and chest wall: No suspicious bony lesions. Overlying soft tissues appear unremarkable. IMPRESSION: Improved right pleural effusion. No pneumothorax Dictated by: Lex Ruvalcaba M.D. on 05/31/2020 at 12:45 Approved by: Lex Ruvalcaba M.D. on 05/31/2020 at 12:48
[2020-05-31] MEDS: KETOROLAC 60 MG/2 ML VIAL 15 MG IV (12:33)
[2020-05-31] MEDS: SODIUM CHLORIDE 0.9% 1,000 ML 1000 ML IV (12:34)
== END 2020-05-31 14:19 | disposition home or self-care (01) ==
PROVIDERS: Emergency Provider Emergency Medicine; PCP Internal Medicine
DX: J90 Pleural effusion, not elsewhere classified (principal)
CPT/HCPCS: 36415; 36556; 71045; 80053; 85025; 96361; 96374; 99284; J1885

== ENCOUNTER → 2020-06-03 13:17 | Outpatient (CLI) | payer OTHER, SELFPAY ==
[2020-05-10 14:26] VITALS: BMI 26.1
[2020-06-03 14:02] LABS: COVID19 -Nasal RAPID Negative (Negative)
== END ==
PROVIDERS: PCP Internal Medicine; Visit Provider Specialist
DX: Z20.822 Contact with and (suspected) exposure to COVID-19 (principal)
CPT/HCPCS: 87635

== ENCOUNTER → 2020-06-03 14:41 | Outpatient (CLI) | payer OTHER, SELFPAY ==
[2020-05-10 14:26] VITALS: BMI 26.1
--- NOTE | 2020-06-03 14:43 | DI.US.S_ITS ---
PROCEDURE: US CHEST COMPARISON: None. INDICATIONS: Symptomatic malignant pleural effusion FINDINGS: Trace complex right-sided pleural fluid collection is noted. Fluid collection is insufficient for safe ultrasound-guided thoracentesis. IMPRESSION: Trace right-sided complex pleural fluid collection. Right-sided pleural fluid collection is insufficient in volume for safe ultrasound-guided thoracentesis. Dictated by: Ami Sykes MD, PhD on 06/03/2020 at 16:55 Approved by: Ami Sykes MD, PhD on 06/03/2020 at 16:56
== END ==
PROVIDERS: PCP Internal Medicine; Referring Provider Internal Medicine; Visit Provider Internal Medicine
DX: J91.0 Malignant pleural effusion (principal); C34.90 Malignant neoplasm of unspecified part of unspecified bronchus or lung; Z20.822 Contact with and (suspected) exposure to COVID-19
CPT/HCPCS: 76604; 87635; C9803

== ENCOUNTER 2020-06-04 10:43 | Day surgery (SDC) | payer OTHER, SELFPAY ==
[2020-05-10 14:26] VITALS: BMI 26.1
[2020-06-04] VITALS (7 sets, daily range): BP systolic 103–122; BP diastolic 51–76; PULSE 85–107; RESP 12–26; TEMP 36.6–36.9; O2SAT 95–97; BMI 23.8
--- NOTE | 2020-06-04 11:12 | PM.CN ---
History of Present Illness Consult details Date Patient Seen: 06/04/20 Time Patient Seen: 08:29 Chief complaint: SDC Reason for consult: Intestinal bleeding Meds Home Medications and Allergies Home Medications Medication Instructions Recorded Confirmed Type atorvastatin 40 mg PO DAILY 05/10/20 06/04/20 History hydrochlorothiazide 25 mg PO QAM 05/10/20 06/04/20 History losartan 50 mg PO DAILY 05/10/20 06/04/20 History metformin 500 mg PO QAM 05/10/20 05/27/20 History omeprazole 40 mg PO QAM 05/10/20 06/04/20 History cholecalciferol (vitamin D3) 1,000 unit DAILY 05/19/20 06/04/20 History [Vitamin D3] ferrous sulfate [Iron (ferrous 325 mg PO DAILY 05/19/20 06/04/20 History sulfate)] hydrocodone-acetaminophen 1 tab PO Q4H PRN #30 tab 05/19/20 06/04/20 Rx multivitamin 1 tab PO DAILY 05/19/20 06/04/20 History omega-3 fatty acids [Fish Oil] 1,000 mg PO DAILY 05/19/20 06/04/20 History Allergies Allergy/AdvReac Type Severity Reaction Status Date / Time Penicillins Allergy Unknown Verified 05/27/20 09:35 Sulfa (Sulfonamide Allergy Unknown Verified 05/27/20 09:35 Antibiotics)
--- NOTE | 2020-06-04 11:35 | PM.HP.1 ---
History of Present Illness History of Present Illness Date Patient Seen: 06/04/20 Time Patient Seen: 11:35 Chief complaint: SDC Narrative: Patient is a gentleman with lung cancer about to undergo chemotherapy and I was asked to place a port. Patient History Medical History Diabetes mellitus Gastroesophageal reflux disease Hyperlipidemia Hypertension Pleural effusion Surgical History H/O right wrist surgery H/O rotator cuff surgery History of carpal tunnel surgery History of carpal tunnel surgery Hx of appendectomy Hx of inguinal hernia surgery Hx of knee surgery Previous back surgery Family & Social History Family History Father Cardiac disease Social History: household members spouse Tobacco & Substance use: Smoking Status Former smoker alcohol intake current alcohol intake frequency holiday/special occasion Substance Use Type opiates,prescription drug Meds Home Medications and Allergies Home Medications Medication Instructions Recorded Confirmed Type atorvastatin 40 mg PO DAILY 05/10/20 06/04/20 History hydrochlorothiazide 25 mg PO QAM 05/10/20 06/04/20 History losartan 50 mg PO DAILY 05/10/20 06/04/20 History metformin 500 mg PO QAM 05/10/20 05/27/20 History omeprazole 40 mg PO QAM 05/10/20 06/04/20 History cholecalciferol (vitamin D3) 1,000 unit DAILY 05/19/20 06/04/20 History [Vitamin D3] ferrous sulfate [Iron (ferrous 325 mg PO DAILY 05/19/20 06/04/20 History sulfate)] hydrocodone-acetaminophen 1 tab PO Q4H PRN #30 tab 05/19/20 06/04/20 Rx multivitamin 1 tab PO DAILY 05/19/20 06/04/20 History omega-3 fatty acids [Fish Oil] 1,000 mg PO DAILY 05/19/20 06/04/20 History Allergies Allergy/AdvReac Type Severity Reaction Status Date / Time Penicillins Allergy Unknown Verified 05/27/20 09:35 Sulfa (Sulfonamide Allergy Unknown Verified 05/27/20 09:35 Antibiotics) Review of Systems Review of Systems Narrative: Does become short of breath. They were going to do a thoracentesis yesterday but he did not have the fluid reaccumulation in the right lung which is the involved side. Therefore it was not performed. Does not have chest pain related to his heart. No black or bloody bowel movements. Exam Vital Signs (past 8 hours): - 06/04/20 11:10 Temperature 97.8 F Pulse Rate 107 H Respiratory Rate 26 H Blood Pressure 122/69 Pulse Oximetry 97 Oxygen Delivery Method Room Air Narrative Exam Narrative: Thin cooperative gentleman in no apparent distress. Eyes are nonicteric. No nodes in the neck or supraclavicular areas. Trachea is midline mobile. Lungs are clear to auscultation anteriorly. Heart regular rate and rhythm with occasional ectopy. No murmur gallop appreciated. Abdomen is soft nontender without mass Assessment & Plan Assessment & Plan narrative: Patient with need for Port-A-Cath to begin chemotherapy for malignancy. I have discussed the procedure with him. Risks of bleeding infection which is an ongoing risk with each cannulation, lung collapse which may require a chest tube to resolve, and clotting vein with possible pulmonary embolism in arm swelling all discussed with him. He appears to understand wishes to proceed. He is right-hand dominant but I will use the right side because that is the disease size and if I cause of pneumothorax sewed prefer to be on the compromised lung.
[2020-06-04] MEDS: LACTATED RINGERS 1,000 ML 42 ML IV (11:36)
--- NOTE | 2020-06-04 11:54 | PM.PREOP ---
Pre-operative Note COVID-19 COVID-19 status: Negative Result date/Date tested (Pos, Neg/Pending): 06/03/20 Interval Note History & Physical reviewed/Exam performed by Physician: Yes Changes to H&P: No
[2020-06-04] MEDS: CLINDAMYCIN 300 MG in DEXTROSE 5 % IN WATER 50 ML 104 ML IV (12:41)
--- NOTE | 2020-06-04 12:58 | SUR.OPER ---
Supine on padded OR bed, head on pillow, arms secured on padded arm boards at <90 degrees abduction, legs uncrossed, safety belt at thigh, tape over blanket over lower legs.
[2020-06-04] MEDS: LIDOCAINE 1% 30 ML INJ (13:04)
[2020-06-04] MEDS: HEPARIN 5,000 UNIT, SODIUM CHLORIDE 0.9% 50 ML IV (13:05)
--- NOTE | 2020-06-04 13:09 | SUR.OPER ---
DENTURES IN LABELED CONTAINER TO PACU WITH PATIENT.
--- NOTE | 2020-06-04 13:23 | PM.OP.1 ---
Operative Date/Time/Diagnoses Date of procedure: 06/04/20 Time of procedure: 13:23 Pre-op diagnosis: lung cancer Post-op diagnosis: same Procedure & Clinicians Procedure: Right subclavian Port-A-Cath placement Same procedure as scheduled: Yes Indications: Need for IV access for chemotherapy Surgeon: Connor Hernandez Click Yes if Unassisted: Yes Anesthesia Type: General Operative Notes Findings: Tip in the distal SVC Closure Type: primary Specimen(s): none sent Prosthetic devices, grafts, tissues, transplants, or devices: Port-A-Cath slim Estimated Blood Loss (mL): 5 Blood products transfused: none Procedure in detail: Patient was placed supine on the operating room table and underwent general LMA anesthesia he was prepped and draped in the usual fashion. Due to his rigid neck hip style was not placed between his shoulders as it was felt it would not and anything. Local anesthetic was infiltrated in field block fashion beneath the right clavicle. Tumors on the right side thus the right side was chosen. Transverse incision was made and carried down into the subcu fat to level just above the pectoralis fascia. Pocket was created inferiorly. Patient is placed in Trendelenburg and a needle inserted into the subclavian vein. Guidewire was passed and fluoroscopy was visualized to going to the superior vena cava. Needle was removed. Catheter was placed in the pocket and tapered to appropriate length. Dilator and introducer were passed over the guidewire with fluoroscopic visualization. The wire and dilator were removed leaving the introducer in place. The introducer to sharp turn in I attempted to pass the catheter through it. I was able to do so with some difficulty but ultimately the catheter was peeled away leaving the catheter tip little further in that I wanted that is into the atrium. I made the pocket a little further inferiorly pulled the catheter back and place the port in that more inferior pocket and this appeared to be appropriate. The port was aspirated and flushed with heparinized saline. The port was secured to the chest wall with 2-0 Prolene. The subQ was closed with interrupted 3-0 Vicryl. The skin was closed with a running 4-0 Vicryl subcuticular stitch and Steri-Strips. Dressing was applied and the patient was extubated taken to recovery area in good condition. X-ray is pending at this time. Complications: none Post-operative Condition: stable Disposition: PACU
[2020-06-04] MEDS: ONDANSETRON 4 MG/2 ML INJ IV (13:48)
[2020-06-04] MEDS: OXYCODONE IR 5 MG TABLET PO (13:48)
--- NOTE | 2020-06-04 14:23 | SUR.PHASEII ---
pt. was discharged without chest x-ray, LM on home phone [phone], VM on pt's cell is full. notified.
--- NOTE | 2020-06-04 15:39 | DI.RAD.S_ITS ---
PROCEDURE: XR CHEST 1V INDICATIONS: POST PORT PLACEMENT TECHNIQUE: One view of the chest was acquired. COMPARISON: [facility], CR, XR CHEST 1V, 05/31/2020, 12:34. FINDINGS: Surgical changes and devices: Right chest wall central venous port with distal tip terminating in the SVC region. Lungs and pleura: Right pleural effusion, increased from prior study. Overlying atelectasis has worsened. The new airspace opacities in the right lung are worrisome for infection. The left lung and pleural space are clear other than coarsened interstitial markings. Mediastinum: Mediastinal contours appear normal. Heart size is normal. Bones and chest wall: No suspicious bony lesions. Overlying soft tissues appear unremarkable. IMPRESSION: Right chest wall central venous port with distal tip terminating over the SVC. Worsened airspace opacities and pleural effusion on the right. Dictated by: Sancho Oconnell M.D. on 06/04/2020 at 15:56 Approved by: Sancho Oconnell M.D. on 06/04/2020 at 15:57
--- NOTE | 2020-06-04 15:46 | SUR.PHASEII ---
chest x-ray completed.
== END 2020-06-04 14:11 | disposition home or self-care (01) ==
PROVIDERS: PCP Internal Medicine; Referring Provider Specialist; Visit Provider Specialist
PROC: (CPT 36561; principal; 2020-06-04 11:45)
DX: C34.91 Malignant neoplasm of unspecified part of right bronchus or lung (principal); E11.9 Type 2 diabetes mellitus without complications; K21.9 Gastro-esophageal reflux disease without esophagitis; E78.5 Hyperlipidemia, unspecified; I10 Essential (primary) hypertension; Z87.891 Personal history of nicotine dependence; Z79.84 Long term (current) use of oral hypoglycemic drugs
CPT/HCPCS: 36561; 71045; 76000; 82962; C1788; J1100; J1644; J2405; J2704; S0077

== ENCOUNTER → 2020-06-18 10:49 | Outpatient (CLI) | payer OTHER, SELFPAY ==
[2020-05-10 14:26] VITALS: BMI 26.1
--- NOTE | 2020-06-18 10:49 | DI.US.S_ITS ---
PROCEDURE: US CHEST COMPARISON: [facility], CHEST, 06/03/2020, 15:30. INDICATIONS: Symptomatic malignant pleural effusion FINDINGS: No pleural fluid identified. Therefore scheduled thoracentesis was canceled. IMPRESSION: No pleural effusion Dictated by: Lex Ruvalcaba M.D. on 06/18/2020 at 12:33 Approved by: Lex Ruvalcaba M.D. on 06/18/2020 at 12:34
== END ==
PROVIDERS: PCP Internal Medicine; Referring Provider Internal Medicine; Visit Provider Internal Medicine
DX: J91.0 Malignant pleural effusion (principal); C34.91 Malignant neoplasm of unspecified part of right bronchus or lung
CPT/HCPCS: 32555; 76604

== ENCOUNTER → 2020-07-13 08:59 | Outpatient (CLI) | payer OTHER, SELFPAY ==
[2020-05-10 14:26] VITALS: BMI 26.1
--- NOTE | 2020-07-13 09:00 | DI.US.S_ITS ---
PROCEDURE: US CHEST COMPARISON: [facility], CR, XR CHEST 1V, 06/04/2020, 15:40. [facility], US, US CHEST, 06/18/2020, 10:04. INDICATIONS: POSSIBLE PLEURAL EFFUSION FINDINGS: The right chest was evaluated for the presence or absence of pleural fluid. Very minimal pleural fluid was identified. No thoracentesis was attempted. IMPRESSION: Minimal right pleural fluid, insufficient for thoracentesis. Dictated by: Liam Ryan M.D. on 07/13/2020 at 10:23 Approved by: Liam Ryan M.D. on 07/13/2020 at 10:24
== END ==
PROVIDERS: PCP Internal Medicine; Referring Provider Internal Medicine; Visit Provider Internal Medicine
DX: C34.90 Malignant neoplasm of unspecified part of unspecified bronchus or lung (principal); J90 Pleural effusion, not elsewhere classified
CPT/HCPCS: 76604

== ENCOUNTER 2020-08-22 10:08 | Inpatient (IN) | payer OTHER, SELFPAY ==
[2020-05-10 14:26] VITALS: BMI 26.1
[2020-08-22] VITALS (356 sets, daily range): BP systolic 72–146; BP diastolic 42–70; PULSE 83–190; RESP 0–37; TEMP 36.3; O2SAT 75–100; BMI 24.4
--- NOTE | 2020-08-22 10:34 | DI.RAD.S_ITS ---
PROCEDURE: XR CHEST 1V INDICATIONS: sob TECHNIQUE: One view of the chest was acquired. COMPARISON: [facility], CR, XR CHEST 1V, 05/31/2020, 10:41. [facility], CR, XR CHEST 1V, 05/31/2020, 12:34. [facility], CR, XR CHEST 1V, 06/04/2020, 15:40. FINDINGS: Surgical changes and devices: There is a Port-A-Cath on the right with the tip projecting to the area of SVC. Lungs and pleura: Bilateral airspace infiltrates consistent with pneumonia. No pleural effusions or pneumothorax. Mediastinum: Mediastinal contours appear normal. Heart size is normal. Bones and chest wall: No suspicious bony lesions. Overlying soft tissues appear unremarkable. IMPRESSION: Bilateral chronic airspace infiltrates could represent acute pneumonia superimposed on chronic interstitial lung disease. Dictated by: Toni Ríos M.D. on 08/22/2020 at 11:15 Approved by: Toni Ríos M.D. on 08/22/2020 at 11:20
[2020-08-22] MEDS: SODIUM CHLORIDE 0.9% 1,000 ML 1000 ML IV ×4 (10:35→17:20)
--- NOTE | 2020-08-22 10:38 | ED.FEVER ---
HPI - Fever General Chief Complaint: Arrhythmia/Palpitations Stated Complaint: balance and weak low grade fever Time Seen by Provider: 08/22/20 10:17 History of Present Illness HPI Narrative: Patient is an 84-year-old male who has a history of lung cancer presenting with fever and generalized weakness for the last 2-3 days. He apparently took Tylenol prior to arrival and is currently afebrile here. He does have his productive cough but he thinks maybe it is a little worse than normal. He has previously had pleural effusions. He is noted to be in AFib with RVR and heart rate at 180-190 and hypotensive with a systolic in the 70s.. He denies any palpitations or worsening shortness of breath. He is having some chest discomfort all across and into his back as well he says that is been ongoing for number of days is. Difficult to tell when he went in to AFib. He has no prior history. He also received his COVID vaccination Related Data Home Medications Medication Instructions Recorded Confirmed atorvastatin 40 mg tablet 40 mg PO DAILY 05/10/20 08/22/20 hydrochlorothiazide 25 mg tablet 25 mg PO QAM 05/10/20 08/22/20 losartan 50 mg tablet 50 mg PO DAILY 05/10/20 08/22/20 omeprazole 40 mg capsule,delayed 40 mg PO QAM 05/10/20 08/22/20 release cholecalciferol (vitamin D3) 25 1,000 unit DAILY 05/19/20 08/22/20 mcg (1,000 unit) capsule (Vitamin D3) ferrous sulfate 325 mg (65 mg 325 mg PO DAILY 05/19/20 08/22/20 iron) tablet (Iron (ferrous sulfate)) multivitamin 1 tab PO DAILY 05/19/20 08/22/20 omega-3 fatty acids 1,000 mg PO DAILY 05/19/20 08/22/20 metformin 500 mg tablet 500 mg PO DAILY 06/04/20 08/22/20 oxycodone 10 mg tablet,extended 10 mg PO Q6HR PRN 06/04/20 08/22/20 release,12 hr ondansetron 8 mg disintegrating 8 mg PO Q12H PRN 07/20/20 08/22/20 tablet Previous Rx's Medication Instructions Recorded oxycodone 10 mg tablet 10 - 20 mg PO Q6H PRN #100 tab 06/08/20 Allergies Allergy/AdvReac Type Severity Reaction Status Date / Time Penicillins Allergy Unknown Verified 08/22/20 10:48 Sulfa (Sulfonamide Allergy Unknown Verified 08/22/20 10:48 Antibiotics) Review of Systems Review of Systems ROS Unobtainable: All systems reviewed & are unremarkable except as noted in HPI and below Constitutional Constitutional: Reports body ache(s), Reports fatigue and Reports fever(s) Eyes Eyes: Denies blurry vision and Denies diplopia ENT Ears, Nose, Mouth, and Throat: Denies vertigo, Denies dizziness, Denies sore throat and Denies throat swelling Cardiovascular Cardiovascular: Reports as per HPI, Reports chest pain, Denies edema and Reports irregular heart rhythm Respiratory Respiratory: Reports as per HPI, Reports chest congestion and Reports cough Gastrointestinal Gastrointestinal: Denies abdominal pain, Denies nausea and Denies vomiting Genitourinary Genitourinary: Denies urinary frequency and Denies urinary hesitancy Musculoskeletal Musculoskeletal: Reports back pain, Reports myalgias and Reports muscle weakness Integumentary/Breasts Skin/Breast: Denies rash Neurologic Neurologic: Denies confusion, Denies vertigo and Denies dizziness Psychiatric Psychiatric: Denies confusion Endocrine Endocrine: Reports fatigue Allergic/Immunologic Allergic/Immunologic: Denies throat swelling Patient History Medical History Diabetes mellitus Gastroesophageal reflux disease Hyperlipidemia Hypertension Pleural effusion Surgical History H/O right wrist surgery H/O rotator cuff surgery History of carpal tunnel surgery History of carpal tunnel surgery Hx of appendectomy Hx of inguinal hernia surgery Hx of knee surgery Previous back surgery Family History Father Cardiac disease Social History household members: spouse Smoking Status: Former smoker alcohol intake: current Smoking Status: Former smoker alcohol intake frequency: holidays/special occasions only Substance Use Type: opiates and prescription drug Exam Initial Vital Signs Initial Vital Signs: Vital Signs Temperature 97.4 F L 08/22/20 10:08 Pulse Rate 190 H 08/22/20 10:08 Respiratory Rate 24 08/22/20 10:08 Blood Pressure 79/49 L 08/22/20 10:08 Pulse Oximetry 95 08/22/20 10:08 GENERAL: Alert pleasant slightly pale 84-year-old male HEENT: Head atraumatic,EOMI, pupils reactive, face symmetric, moist mucous membranes CARDIOVASCULAR: Irregularly irregular tachycardic no murmur RESPIRATORY: Decreased breath sounds on right side, no respiratory distress ABDOMEN: Soft, nontender. Normoactive bowel sounds all 4 quadrants. No guarding or rebound. EXTREMITIES: Normal range of motion, no clubbing or edema. Neurovascularly intact NEUROLOGICAL: Alert and oriented x4.Normal gait and speech. SKIN: Warm, dry, no laceration, no petechiae, no rashes or lesions. Course Orders Ordered: ED Orders 08/22/20 10:30 Blood Culture Stat Complete Blood Count AUTO DIFF Stat Comprehensive Metabolic Panel Stat Lactate (Lactic Acid) Stat NT-proBNP (BNP-Adult 18+) Stat Partial Thromboplastin Time Stat Procalcitonin Stat Prothrombin Time INR Stat Troponin & CK Cardiac Panel Stat 08/22/20 10:34 XR chest 1V Stat EKG-12 Lead Stat 08/22/20 10:38 COVID19 -Nasal swab/Pre-Proc Stat 08/22/20 12:05 CT chest abd pel w con Stat 08/22/20 14:10 Urinalysis and Microscopic Stat Acetaminophen (Acetaminophen 325 Mg Tablet) 650 mg PO Q6HR PRN PRN Reason: Fever Atorvastatin Calcium (Atorvastatin 20 Mg Tablet) 40 mg PO BEDTIME JESUS ALBERTO Bisacodyl (Bisacodyl 10 Mg Supp) [address] DAILY PRN PRN Reason: Constipation Digoxin (Digoxin 500 Mcg/2 Ml Ampul) 250 mcg IV Q6H JESUS ALBERTO Last Admin: 08/22/20 18:45 Dose: 250 mcg Documented by: CWHITE Docusate Sodium (Docusate 100 Mg Capsule) 100 mg PO BID JESUS ALBERTO Enoxaparin Sodium (Enoxaparin 40 Mg/0.4 Ml Syringe) 40 mg SUBCUT DAILY COUNTS INCLUDE 234 BEDS AT THE [facility] Heparin Sodium (Porcine) (Heparin 500 Unit/5 Ml Port Flush) 500 unit IV BID COUNTS INCLUDE 234 BEDS AT THE [facility] Hydromorphone HCl (Hydromorphone 1 Mg Inj) 0.5 mg IV Q6HR PRN PRN Reason: pain Norepinephrine Bitartrate 4 mg (/ Dextrose) 254 mls @ 30.48 mls/hr IV TITRATE JESUS ALBERTO; Protocol Last Titration: 08/22/20 14:05 Dose: 0 mcg/min, 0 mls/hr Documented by: Titration: 08/22/20 14:05 Dose: 0 mcg/min, 0 mls/hr Documented by: Titration: 08/22/20 12:58 Dose: 0 mcg/min, 0 mls/hr Documented by: Titration: 08/22/20 12:58 Dose: 0 mcg/min, 0 mls/hr Documented by: Titration: 08/22/20 11:48 Dose: 2 mcg/min, 7.62 mls/hr Documented by: Titration: 08/22/20 11:03 Dose: 5 mcg/min, 19.05 mls/hr Documented by: Admin: 08/22/20 10:54 Dose: 8 mcg/min, 30.48 mls/hr Documented by: SUNNY Sodium Chloride (Normal Saline 0.9%) 250 mls @ 21 mls/hr IV Q24H PRN PRN Reason: Flush Meropenem 2 gm/ Sodium (Chloride) 100 mls @ 200 mls/hr IV Q8H JESUS ALBERTO Last Admin: 08/22/20 18:39 Dose: 200 mls/hr Documented by: CWHITE Lactated Ringer's (Lactated Ringers) 1,000 mls @ 200 mls/hr IV CONT JESUS ALBERTO Last Admin: 08/22/20 18:37 Dose: 200 mls/hr Documented by: CWHITE Insulin Human Lispro (Insulin Lispro 100 Unit/Ml 3ml Vial) 0 unit SUBCUT ACHS JESUS ALBERTO; Protocol Naloxone HCl (Naloxone 0.4 Mg/Ml Vial) 0.2 mg IV Q2MIN PRN PRN Reason: Opiate Reversal Oxycodone HCl (Oxycodone Ir 5 Mg Tablet) 10 mg PO Q4HR PRN PRN Reason: Pain, Severe (7-10) Pantoprazole Sodium (Pantoprazole Dr 40 Mg Tablet) 40 mg PO 0700 JESUS ALBERTO Sodium Chloride (Sodium Chloride 0.9% Flush) 10 ml IV PRN PRN PRN Reason: Flush Discontinued Medications Digoxin (Digoxin 500 Mcg/2 Ml Ampul) 250 mcg IV NOW ONE Stop: 08/22/20 13:48 Last Admin: 08/22/20 13:55 Dose: 250 mcg Documented by: SUNNY Sodium Chloride (Normal Saline 0.9%) 1,000 mls @ 1,000 mls/hr IV BOLUS ONE Stop: 08/22/20 11:37 Last Infusion: 08/22/20 11:39 Dose: 0 mls/hr Documented by: Admin: 08/22/20 10:35 Dose: 1,000 mls/hr Documented by: SUNNY Cefepime HCl 2 gm/ Sodium (Chloride) 100 mls @ 200 mls/hr IV NOW ONE Stop: 08/22/20 11:24 Last Infusion: 08/22/20 12:08 Dose: 0 mls/hr Documented by: Admin: 08/22/20 11:36 Dose: 200 mls/hr Documented by: SUNNY Vancomycin HCl (Vancomycin) 1,250 mg in 250 mls @ 250 mls/hr IV NOW ONE Stop: 08/22/20 12:23 Last Infusion: 08/22/20 14:02 Dose: 0 mls/hr Documented by: Admin: 08/22/20 12:14 Dose: 250 mls/hr Documented by: SUNNY Sodium Chloride (Normal Saline 0.9%) 1,000 mls @ 1,000 mls/hr IV BOLUS ONE Stop: 08/22/20 12:36 Last Infusion: 08/22/20 13:17 Dose: 0 mls/hr Documented by: Admin: 08/22/20 11:38 Dose: 1,000 mls/hr Documented by: SUNNY Sodium Chloride (Normal Saline 0.9%) 1,000 mls @ 1,000 mls/hr IV BOLUS ONE Stop: 08/22/20 14:17 Last Infusion: 08/22/20 14:26 Dose: 0 mls/hr Documented by: Admin: 08/22/20 13:20 Dose: 1,000 mls/hr Documented by: SUNNY Sodium Chloride (Normal Saline 0.9%) 1,000 mls @ 1,000 mls/hr IV BOLUS ONE Stop: 08/22/20 18:11 Last Admin: 08/22/20 17:20 Dose: 1,000 mls/hr Documented by: HELEN Insulin Human Lispro (Insulin Lispro 100 Unit/Ml 3ml Vial) 0 unit SUBCUT Q6H JESUS ALBERTO; Protocol Ketorolac Tromethamine (Ketorolac 30 Mg/Ml Vial) 15 mg IV NOW ONE Stop: 08/22/20 13:48 Last Admin: 08/22/20 13:53 Dose: 15 mg Documented by: SUNNY Metoprolol Tartrate (Metoprolol Tartrate 5 Mg/5 Ml Inj) 5 mg IV NOW ONE Stop: 08/22/20 10:38 Last Admin: 08/22/20 11:07 Dose: 5 mg Documented by: SUNNY Metoprolol Tartrate (Metoprolol Tartrate 5 Mg/5 Ml Inj) 5 mg IV NOW ONE Stop: 08/22/20 13:26 Last Admin: 08/22/20 13:38 Dose: 5 mg Documented by: SUNNY Vital Signs Vital signs: Vital Signs - 8 hr 08/22/20 10:50 08/22/20 10:55 08/22/20 10:59 Pulse Rate 165 H 169 H 174 H Respiratory Rate 28 H 27 H 18 Blood Pressure 86/61 L 86/52 L 76/50 L Pulse Oximetry 97 97 98 08/22/20 11:00 08/22/20 11:03 08/22/20 11:05 Pulse Rate 173 H 160 H 154 H Respiratory Rate 28 H 22 19 Blood Pressure 92/52 L 100/58 L Pulse Oximetry 98 97 98 08/22/20 11:09 08/22/20 11:10 08/22/20 11:13 Pulse Rate 121 H 110 H 109 H Respiratory Rate 14 12 16 Blood Pressure 103/58 L 92/51 L Pulse Oximetry 98 98 100 08/22/20 11:15 08/22/20 11:16 08/22/20 11:20 Pulse Rate 106 H 104 H 103 H Respiratory Rate 10 L 24 13 Blood Pressure 96/56 L Pulse Oximetry 100 100 100 08/22/20 11:24 08/22/20 11:25 08/22/20 11:30 Pulse Rate 103 H 101 H 104 H Respiratory Rate 11 L 21 9 L Blood Pressure 100/55 L 94/51 L 101/58 L Pulse Oximetry 100 100 100 08/22/20 11:35 08/22/20 11:36 08/22/20 11:40 Pulse Rate 111 H 102 H 102 H Respiratory Rate 26 H 20 12 Blood Pressure 92/58 L 93/56 L Pulse Oximetry 100 100 100 08/22/20 11:42 08/22/20 11:44 08/22/20 11:46 Pulse Rate 99 H 109 H 105 H Respiratory Rate 22 17 25 H Blood Pressure 101/48 L Pulse Oximetry 100 100 100 08/22/20 11:48 08/22/20 11:50 08/22/20 11:52 Pulse Rate 110 H 110 H 109 H Respiratory Rate 22 18 17 Blood Pressure Pulse Oximetry 100 100 100 08/22/20 11:54 08/22/20 11:55 08/22/20 11:56 Pulse Rate 103 H 110 H 108 H Respiratory Rate 11 L 11 L 9 L Blood Pressure 87/51 L Pulse Oximetry 100 100 100 08/22/20 11:58 08/22/20 12:00 08/22/20 12:02 Pulse Rate 106 H 113 H 110 H Respiratory Rate 19 22 22 Blood Pressure Pulse Oximetry 100 100 100 08/22/20 12:04 08/22/20 12:05 08/22/20 12:06 Pulse Rate 110 H 124 H 100 H Respiratory Rate 18 25 H 22 Blood Pressure 102/63 Pulse Oximetry 100 100 100 08/22/20 12:15 08/22/20 12:16 08/22/20 12:18 Pulse Rate 116 H 108 H 109 H Respiratory Rate 15 16 20 Blood Pressure 100/57 L Pulse Oximetry 100 100 100 08/22/20 12:20 08/22/20 12:21 08/22/20 12:22 Pulse Rate 107 H 113 H 114 H Respiratory Rate 19 22 14 Blood Pressure 102/58 L 98/64 Pulse Oximetry 100 100 100 08/22/20 12:24 08/22/20 12:25 08/22/20 12:26 Pulse Rate 115 H 112 H 118 H Respiratory Rate 19 21 20 Blood Pressure 101/51 L Pulse Oximetry 100 100 100 08/22/20 12:28 08/22/20 12:29 08/22/20 12:30 Pulse Rate 118 H 116 H Respiratory Rate 12 12 Blood Pressure 102/52 L Pulse Oximetry 100 100 08/22/20 12:32 08/22/20 12:34 08/22/20 12:36 Pulse Rate 117 H 126 H 138 H Respiratory Rate 23 Blood Pressure Pulse Oximetry 100 100 08/22/20 12:38 08/22/20 12:40 08/22/20 12:42 Pulse Rate 108 H 126 H 124 H Respiratory Rate 28 H 22 20 Blood Pressure 104/53 L Pulse Oximetry 98 96 96 08/22/20 12:44 08/22/20 12:46 08/22/20 12:48 Pulse Rate 121 H 105 H 118 H Respiratory Rate 25 H 12 Blood Pressure 108/60 Pulse Oximetry 97 98 99 08/22/20 12:50 08/22/20 12:52 08/22/20 12:54 Pulse Rate 112 H 121 H 130 H Respiratory Rate 14 14 20 Blood Pressure 105/55 L Pulse Oximetry 100 100 100 08/22/20 12:56 08/22/20 12:58 08/22/20 13:00 Pulse Rate 130 H 120 H 130 H Respiratory Rate 23 17 20 Blood Pressure 103/63 87/55 L Pulse Oximetry 99 99 99 08/22/20 13:02 08/22/20 13:04 08/22/20 13:05 Pulse Rate 114 H 115 H 112 H Respiratory Rate 21 15 23 Blood Pressure 110/51 L 94/53 L Pulse Oximetry 98 98 98 08/22/20 13:06 08/22/20 13:08 08/22/20 13:10 Pulse Rate 121 H 120 H 119 H Respiratory Rate 18 21 16 Blood Pressure 99/56 L Pulse Oximetry 97 99 98 08/22/20 13:12 08/22/20 13:14 08/22/20 13:15 Pulse Rate 120 H 121 H 112 H Respiratory Rate 20 20 20 Blood Pressure 102/61 Pulse Oximetry 100 100 100 08/22/20 13:16 08/22/20 13:18 08/22/20 13:20 Pulse Rate 124 H 119 H 134 H Respiratory Rate 25 H 15 17 Blood Pressure 105/55 L Pulse Oximetry 100 98 99 08/22/20 13:22 08/22/20 13:24 08/22/20 13:25 Pulse Rate 123 H 128 H 124 H Respiratory Rate 11 L 20 18 Blood Pressure 106/56 L Pulse Oximetry 100 99 99 08/22/20 13:26 08/22/20 13:28 08/22/20 13:30 Pulse Rate 123 H 126 H 115 H Respiratory Rate 19 16 24 Blood Pressure Pulse Oximetry 99 98 100 08/22/20 13:31 08/22/20 13:32 08/22/20 13:34 Pulse Rate 120 H 115 H 122 H Respiratory Rate 15 21 16 Blood Pressure 105/55 L Pulse Oximetry 100 99 98 08/22/20 13:35 08/22/20 13:36 08/22/20 13:38 Pulse Rate 115 H 124 H 112 H Respiratory Rate 23 17 12 Blood Pressure 106/62 Pulse Oximetry 99 99 99 08/22/20 13:40 08/22/20 13:42 08/22/20 13:44 Pulse Rate 112 H 112 H 106 H Respiratory Rate 16 22 17 Blood Pressure 115/56 L Pulse Oximetry 100 100 98 08/22/20 13:45 08/22/20 13:46 08/22/20 13:48 Pulse Rate 109 H 106 H 98 H Respiratory Rate 15 16 14 Blood Pressure 89/50 L Pulse Oximetry 99 100 100 08/22/20 13:50 08/22/20 13:52 08/22/20 13:54 Pulse Rate 97 H 102 H 103 H Respiratory Rate 14 14 17 Blood Pressure 96/52 L Pulse Oximetry 100 100 99 08/22/20 13:55 08/22/20 13:56 08/22/20 13:58 Pulse Rate 108 H 108 H 110 H Respiratory Rate 23 16 26 H Blood Pressure 96/55 L Pulse Oximetry 98 99 99 08/22/20 14:00 08/22/20 14:02 08/22/20 14:04 Pulse Rate 101 H 134 H 115 H Respiratory Rate 22 32 H 21 Blood Pressure 101/56 L Pulse Oximetry 100 08/22/20 14:05 08/22/20 14:06 08/22/20 14:08 Pulse Rate 109 H 108 H 106 H Respiratory Rate 19 17 23 Blood Pressure 93/53 L Pulse Oximetry 95 99 MDM - Fever Lab Data Result diagrams: 08/22/20 10:30 08/22/20 18:15 Labs: Lab Results 08/22/20 08/22/20 08/22/20 Range/Units 10:30 10:30 10:30 WBC 8.7 (4.5-11.0) X10^3/uL RBC 3.49 L (4.5-5.9) X10^6/uL Hgb 9.6 L (13.5-17.5) g/dL Hct 28.9 L (41-53) % MCV 82.8 (80-100) fL MCH 27.6 (26-34) PG MCHC 33.3 (30-36) % RDW 20.0 H (11.6-14.8) % Plt Count 164 (150-400) X10^3/uL Neut % (Auto) 60.5 (50-75) % Lymph % (Auto) 20.5 L (25-40) % [place] % (Auto) 18.6 H (3-14) % Eos % (Auto) 0.1 L (2-4) % Baso % (Auto) 0.3 (0-2) % Neut # (Auto) 5200 (5028-1804) /uL Lymph # (Auto) 1800 (1669-4427) /uL [place] # (Auto) 1600 H (0-900) /uL Eos # (Auto) 0 (0-450) /uL Baso # (Auto) 0 (0-100) /uL PT 17.5 H (10.1-12.7) SECONDS INR 1.6 H (0.9-1.3) APTT 26 L D (26.4-36.2) SECONDS Sodium 133 L (137-145) mmol/L Potassium 3.8 (3.4-5.1) mmol/L Chloride 98 (98-107) mmol/L Carbon Dioxide 29 (22-32) mmol/L BUN 16 (9-20) mg/dL Creatinine 0.81 (0.66-1.25) mg/dL Estimated GFR > 60.0 (>60) mL/min BUN/Creatinine Ratio 19.8 (6-22) Glucose 111 H (80-110) mg/dL Lactate (0.7-2.1) mmol/L Calcium 9.6 (8.4-10.2) mg/dL Total Bilirubin 0.7 (0.2-1.3) mg/dL AST 45 (17-59) IU/L ALT 13 (<50) IU/L Alkaline Phosphatase 125 (38-126) U/L Total Creatine Kinase 44 L (55-170) U/L CK-MB (CK-2) TNP CK-MB (CK-2) Rel Index TNP Troponin I 0.030 (0.01-0.034) ng/mL NT-Pro-B Natriuret Pep 865 H (<450) pg/mL Total Protein 6.8 (6.3-8.2) g/dL Albumin 3.6 (3.5-5.0) g/dL Globulin 3.2 (1.7-4.1) g/dL Albumin/Globulin Ratio 1.1 (1.0-2.8) Procalcitonin 1.29 H (<0.5) ng/mL SARS-CoV-2 (PCR) (Negative) 08/22/20 08/22/20 08/22/20 Range/Units 10:30 10:30 10:38 WBC (4.5-11.0) X10^3/uL RBC (4.5-5.9) X10^6/uL Hgb (13.5-17.5) g/dL Hct (41-53) % MCV (80-100) fL MCH (26-34) PG MCHC (30-36) % RDW (11.6-14.8) % Plt Count (150-400) X10^3/uL Neut % (Auto) (50-75) % Lymph % (Auto) (25-40) % [place] % (Auto) (3-14) % Eos % (Auto) (2-4) % Baso % (Auto) (0-2) % Neut # (Auto) (2033-3602) /uL Lymph # (Auto) (6287-2529) /uL [place] # (Auto) (0-900) /uL Eos # (Auto) (0-450) /uL Baso # (Auto) (0-100) /uL PT (10.1-12.7) SECONDS INR (0.9-1.3) APTT Cancelled (26.4-36.2) SECONDS Sodium (137-145) mmol/L Potassium (3.4-5.1) mmol/L Chloride (98-107) mmol/L Carbon Dioxide (22-32) mmol/L BUN (9-20) mg/dL Creatinine (0.66-1.25) mg/dL Estimated GFR (>60) mL/min BUN/Creatinine Ratio (6-22) Glucose (80-110) mg/dL Lactate 1.7 (0.7-2.1) mmol/L Calcium (8.4-10.2) mg/dL Total Bilirubin (0.2-1.3) mg/dL AST (17-59) IU/L ALT (<50) IU/L Alkaline Phosphatase (38-126) U/L Total Creatine Kinase (55-170) U/L CK-MB (CK-2) CK-MB (CK-2) Rel Index Troponin I (0.01-0.034) ng/mL NT-Pro-B Natriuret Pep (<450) pg/mL Total Protein (6.3-8.2) g/dL Albumin (3.5-5.0) g/dL Globulin (1.7-4.1) g/dL Albumin/Globulin Ratio (1.0-2.8) Procalcitonin (<0.5) ng/mL SARS-CoV-2 (PCR) Negative (Negative) Imaging Data Chest x-ray: Radiologist's Impression: PROCEDURE: XR CHEST 1V INDICATIONS: sob TECHNIQUE: One view of the chest was acquired. COMPARISON: [facility], CR, XR CHEST 1V, 05/31/2020, 10:41. [facility], CR, XR CHEST 1V, 05/31/2020, 12:34. [facility], CR, XR CHEST 1V, 06/04/2020, 15:40. FINDINGS: Surgical changes and devices: There is a Port-A-Cath on the right with the tip projecting to the area of SVC. Lungs and pleura: Bilateral airspace infiltrates consistent with pneumonia. No pleural effusions or pneumothorax. Mediastinum: Mediastinal contours appear normal. Heart size is normal. Bones and chest wall: No suspicious bony lesions. Overlying soft tissues appear unremarkable. IMPRESSION: Bilateral chronic airspace infiltrates could represent acute pneumonia superimposed on chronic interstitial lung disease. Dictated by: Toni Ríos M.D. on 08/22/2020 at 11:15 Approved by: Toni Ríos M.D. on 08/22/2020 at 11:20 CT scan - abdomen/pelvis: Radiologist's Impression: PROCEDURE: CT CHEST ABD PEL W CON INDICATIONS: fever, ab pain, lung cancer TECHNIQUE: After the administration of intravenous contrast, axial sections acquired from the supraclavicular neck to the pubic symphysis. Coronal and sagittal reformats were performed. For radiation dose reduction, the following was used: automated exposure control, adjustment of mA and/or kV according to patient size. COMPARISON: [facility], CT, CT ABDOMEN PELVIS W CON, 05/06/2020, 13:46. [facility], CT, CT CHEST W CON, 05/10/2020, 10:47. [facility], CT, CT BIOPSY LUNG RT, 05/27/2020, 10:19. FINDINGS: Image quality: Excellent. CHEST: Lower Neck: No enlarged lymph nodes. Thyroid: Within normal limits. Postoperative clips are seen adjacent to the right thyroid lobe. Axillae: No enlarged lymph nodes. Chest Wall: Unremarkable. Lungs and Airways: Within the right upper lobe, there is a nodule seen 2.3 cm, which is similar in size compared to the prior examination. Areas of subpleural pulmonary fibrotic change are seen. Pleura: Pleural thickening is seen anteriorly, which is improved compared to the prior examination. There is a trace right-sided pleural effusion seen, which clearly compared prior CT. There is no pneumothorax. Heart: Heart size is mildly enlarged. No pericardial effusion. Thoracic Vessels: The aorta and pulmonary arteries demonstrate normal size. Mediastinum and Nickie: Enlarged mediastinal lymph nodes are seen, including a right paratracheal lymph node that measures 23 x 17 mm. There is an enlarged right perihilar lymph node seen that measures 18 x 14 mm. These are similar to the prior examination. Esophagus: No wall thickening. No hiatal hernia. ABDOMEN: Liver: Numerous poorly defined poorly enhancing nodules can be seen liver, largest measuring approximately 1.8 cm. Gallbladder: Removed. Biliary ducts: Unremarkable. Pancreas: Unremarkable. Spleen: Unremarkable. Adrenal Glands: Unremarkable. Kidneys and Ureters: The kidneys demonstrate normal size and there is no hydronephrosis. There is a simple appearing nonenhancing cyst along the lateral aspect of the right kidney that measures up to 6.7 cm. At least 1 nonobstructing right-sided kidney stone can be seen measuring approximately 4 mm. Stomach and Bowel: Stomach, small bowel loops, and colon are unremarkable. Colonic diverticulosis is seen, without findings of active diverticulitis. Peritoneum: No abnormal intraperitoneal fluid. No free air. Ventral Wall: No hernia. Abdominal Nodes: No retroperitoneal or mesenteric adenopathy by size criteria. Vessels: Aorta and inferior vena cava are normal in size. Atherosclerotic calcification is noted. Calcifications of the renal arteries can also be seen. PELVIS: Pelvic Organs: Unremarkable. Bladder: Unremarkable. Pelvic Nodes: No enlarged lymph nodes. Miscellaneous: No inguinal hernias are seen. Bones: Accentuated thoracic kyphosis is seen. Age-appropriate bony degenerative changes are seen. IMPRESSION: Stable right upper lobe pulmonary nodule. Improved right anterior lung pleural thickening. Decreased size of the previously seen right-sided pleural effusion. Stable enlarged mediastinal and right perihilar lymph nodes are seen, which are attributed to metastatic disease. Diffuse liver metastases. These are more conspicuous than on the prior CT dated 05/06/2020. Incidental note is made of: Postoperative clips adjacent to the right thyroid Mild cardiomegaly Cholecystectomy Simple appearing right renal cyst At least 1 nonobstructing right-sided kidney stone. Atherosclerotic calcification, including renal artery calcification. Diverticulosis, without active diverticulitis Dictated by: Escobar Huang M.D. on 08/22/2020 at 12:08 Approved by: Escobar Huang M.D. on 08/22/2020 at 12:17 ECG Data Attestation: I personally reviewed and interpreted this ECG as follows: Prior ECG tracings: available for review Interpretation: atrial fibrillation with RVR rate [address] changes. MDM Narrative Medical decision making narrative: Patient is initially thought to be septic a history of fever generalized weakness and cough. He is having some mild chest discomfort and has been for last 2-3 days. Not a great candidate for cardioversion despite hypotension and tachycardia. Sepsis fluids were started which actually helped considerably with his heart rate bringing it down into the 150s. He was started on Levophed through his port for septic shock, and given broad-spectrum antibiotics as well. He was then given metoprolol IV for his heart rate. Levophed was actually weaned off. Heart rate is much lower but still variable and elevated as high as 130. Patient's blood work surprisingly looks okay he has no leukocytosis normal lactate procalcitonin is elevated however it is unclear how to interpret this with history of lung cancer. [id number] Dr. Singh, cardiology recommends digoxin load. Dr. Fernandez updated on patients test results and cardiology recommendations and happily except Critical Care Time Critical Care Time Critical Care Time: Yes Total Critical Care Time: 90 Attestation: The high probability of a clinically significant, sudden or life threatening deterioration of the [cardiovascular] system(s) required my full and direct attention, intervention and personal management. The aggregate critical care time was 90 minutes. This time is in addition to time spent performing reported procedures but includes the following: [x] Data Review and interpretation [x] Patient assessment and monitoring of vital signs [x] Documentation [x] Medication orders and management Discharge Plan Departure Patient Disposition: Admitted As Inpatient Clinical Impression: Sepsis, Atrial fibrillation with rapid ventricular response Admit Date/Time: 08/22/20 14:08 Admit Provider: Sherrie Fernandez
[2020-08-22 10:47] LABS: Add Manual Diff / Slide Review NO; Basophils Absolute Auto 0 /uL (0-100); Basophils Percent Auto 0.3 % (0-2); Eosinophils Absolute Auto 0 /uL (0-450); Eosinophils Percent Auto 0.1 % (2-4); Hematocrit 28.9 % (41-53); Hemoglobin 9.6 g/dL (13.5-17.5); Lymphocytes Absolute Auto 1800 /uL (1100-4500); Lymphocytes Percent Auto 20.5 % (25-40); Mean Corpuscular HGB Conc 33.3 % (30-36); Mean Corpuscular Hemoglobin 27.6 PG (26-34); Mean Corpuscular Volume 82.8 fL (80-100); Monocytes Absolute Auto 1600 /uL (0-900); Monocytes Percent Auto 18.6 % (3-14); Neutrophils Absolute Auto 5200 /uL (1500-7000); Neutrophils Percent Auto 60.5 % (50-75); Platelet Count 164 X10^3/uL (150-400); Red Blood Cell Count 3.49 X10^6/uL (4.5-5.9); White Blood Cell Count 8.7 X10^3/uL (4.5-11.0)
[2020-08-22 10:51] LABS: Alanine Aminotransferase 13 IU/L (<50); Albumin 3.6 g/dL (3.5-5.0); Albumin Globulin Ratio 1.1 (1.0-2.8); Alkaline Phosphatase 125 U/L (38-126); Aspartate Aminotransferase 45 IU/L (17-59); BUN Creatinine Ratio 19.8 (6-22); Bilirubin Total 0.7 mg/dL (0.2-1.3); Blood Urea Nitrogen 16 mg/dL (9-20); Calcium 9.6 mg/dL (8.4-10.2); Carbon Dioxide 29 mmol/L (22-32); Chloride 98 mmol/L (98-107); Creatine Kinase 44 U/L (55-170); Estimated Glomerular Filt Rate > 60.0 mL/min (>60); Globulin 3.2 g/dL (1.7-4.1); Glucose 111 mg/dL (80-110); HEMOLYSIS < 15 (0-50); Lactate (Lactic Acid) 1.7 mmol/L (0.7-2.1); Potassium 3.8 mmol/L (3.4-5.1); Sodium 133 mmol/L (137-145); Total Protein 6.8 g/dL (6.3-8.2)
[2020-08-22] MEDS: NOREPINEPHRINE 4 MG in DEXTROSE 5% IN WATER 250 ML 30.48 ML IV (10:54)
[2020-08-22 11:03] LABS: NT-proBNP (BNP-Adult 18+) 865 pg/mL (<450)
[2020-08-22] MEDS: METOPROLOL TARTRATE 5 MG/5 ML INJ IV ×2 (11:07→13:38)
[2020-08-22 11:08] LABS: Procalcitonin 1.29 ng/mL (<0.5)
[2020-08-22 11:10] LABS: COVID19 -Nasal RAPID Negative (Negative)
[2020-08-22 11:10] LABS: INR 1.6 (0.9-1.3); Prothrombin Time 17.5 SECONDS (10.1-12.7)
[2020-08-22 11:11] LABS: PTT Partial Thromboplastin Tim 26 SECONDS (26.4-36.2)
[2020-08-22] MEDS: CEFEPIME 2 GM in SODIUM CHLORIDE 0.9% 100 ML 200 ML IV (11:36)
--- NOTE | 2020-08-22 12:05 | DI.CT.S_ITS ---
PROCEDURE: CT CHEST ABD PEL W CON INDICATIONS: fever, ab pain, lung cancer TECHNIQUE: After the administration of intravenous contrast, axial sections acquired from the supraclavicular neck to the pubic symphysis. Coronal and sagittal reformats were performed. For radiation dose reduction, the following was used: automated exposure control, adjustment of mA and/or kV according to patient size. COMPARISON: [facility], CT, CT ABDOMEN PELVIS W CON, 05/06/2020, 13:46. [facility], CT, CT CHEST W CON, 05/10/2020, 10:47. [facility], CT, CT BIOPSY LUNG RT, 05/27/2020, 10:19. FINDINGS: Image quality: Excellent. CHEST: Lower Neck: No enlarged lymph nodes. Thyroid: Within normal limits. Postoperative clips are seen adjacent to the right thyroid lobe. Axillae: No enlarged lymph nodes. Chest Wall: Unremarkable. Lungs and Airways: Within the right upper lobe, there is a nodule seen 2.3 cm, which is similar in size compared to the prior examination. Areas of subpleural pulmonary fibrotic change are seen. Pleura: Pleural thickening is seen anteriorly, which is improved compared to the prior examination. There is a trace right-sided pleural effusion seen, which clearly compared prior CT. There is no pneumothorax. Heart: Heart size is mildly enlarged. No pericardial effusion. Thoracic Vessels: The aorta and pulmonary arteries demonstrate normal size. Mediastinum and Nickie: Enlarged mediastinal lymph nodes are seen, including a right paratracheal lymph node that measures 23 x 17 mm. There is an enlarged right perihilar lymph node seen that measures 18 x 14 mm. These are similar to the prior examination. Esophagus: No wall thickening. No hiatal hernia. ABDOMEN: Liver: Numerous poorly defined poorly enhancing nodules can be seen liver, largest measuring approximately 1.8 cm. Gallbladder: Removed. Biliary ducts: Unremarkable. Pancreas: Unremarkable. Spleen: Unremarkable. Adrenal Glands: Unremarkable. Kidneys and Ureters: The kidneys demonstrate normal size and there is no hydronephrosis. There is a simple appearing nonenhancing cyst along the lateral aspect of the right kidney that measures up to 6.7 cm. At least 1 nonobstructing right-sided kidney stone can be seen measuring approximately 4 mm. Stomach and Bowel: Stomach, small bowel loops, and colon are unremarkable. Colonic diverticulosis is seen, without findings of active diverticulitis. Peritoneum: No abnormal intraperitoneal fluid. No free air. Ventral Wall: No hernia. Abdominal Nodes: No retroperitoneal or mesenteric adenopathy by size criteria. Vessels: Aorta and inferior vena cava are normal in size. Atherosclerotic calcification is noted. Calcifications of the renal arteries can also be seen. PELVIS: Pelvic Organs: Unremarkable. Bladder: Unremarkable. Pelvic Nodes: No enlarged lymph nodes. Miscellaneous: No inguinal hernias are seen. Bones: Accentuated thoracic kyphosis is seen. Age-appropriate bony degenerative changes are seen. IMPRESSION: Stable right upper lobe pulmonary nodule. Improved right anterior lung pleural thickening. Decreased size of the previously seen right-sided pleural effusion. Stable enlarged mediastinal and right perihilar lymph nodes are seen, which are attributed to metastatic disease. Diffuse liver metastases. These are more conspicuous than on the prior CT dated 05/06/2020. Incidental note is made of: Postoperative clips adjacent to the right thyroid Mild cardiomegaly Cholecystectomy Simple appearing right renal cyst At least 1 nonobstructing right-sided kidney stone. Atherosclerotic calcification, including renal artery calcification. Diverticulosis, without active diverticulitis Dictated by: Escobar Huang M.D. on 08/22/2020 at 12:08 Approved by: Escobar Huang M.D. on 08/22/2020 at 12:17
[2020-08-22] MEDS: VANCOMYCIN 1,250 MG/250 ML PIGGYBACK 250 MG IV (12:14)
[2020-08-22] MEDS: KETOROLAC 30 MG/ML VIAL 15 MG IV (13:53)
[2020-08-22] MEDS: DIGOXIN 500 MCG/2 ML AMPUL 250 MCG IV ×2 (13:55→18:45)
[2020-08-22 14:38] LABS: Bacteria Urine None Seen; RBC Urine None Seen (0-5/HPF); WBC Urine None Seen (0-5/HPF)
[2020-08-22 14:39] LABS: Appearance Urine UA CLEAR; Bilirubin Urine UA NEGATIVE (NEGATIVE); Color Urine UA YELLOW; Glucose Urine UA NEGATIVE (Negative); Ketones Urine UA NEGATIVE (NEGATIVE); Leukocyte Esterase Urine UA NEGATIVE (NEGATIVE); Nitrite Urine UA NEGATIVE (Negative); Occult Blood Urine UA NEGATIVE (Negative); Protein Urine UA TRACE (Negative); Specific Gravity Urine UA <=1.005 (1.000-1.035); Urobilinogen Urine UA 0.2 E.U./dL (0.2); pH Urine UA 5.5 (4.5-8.0)
[2020-08-22 14:54] LABS: Amorphous Sediment Urine 2+; Culture Indicated Urine Cult Not Indicated; Mucus Urine 2+ (Negative)
--- NOTE | 2020-08-22 15:10 | PC.NURSE ---
Rec'd pt from ED to rm [id number] at 1447. Pt able to stand and pivot transfer to bed with 1PA. Pt is AO, mildly [place], and denying pain. Reports multiple recent falls. Denies hitting his head. Oriented to room, routine, fall risk, use of call light. Instructed pt to wait for assistance before getting OOB. He verbalizes understanding and is agreeable to do so.
[2020-08-22 15:51] LABS: COVID19 - ADMIT (NP swab/PCR) Negative (Negative)
--- NOTE | 2020-08-22 17:45 | P.HP_ITS ---
History of Present Illness History of Present Illness Chief complaint: balance and weak low grade fever Narrative: The patient is an 84-year-old male with a history of type 2 diabetes, hypertension, hyperlipidemia, gastroesophageal reflux disease, and small cell lung cancer, he is status post 2 cycles chemotherapy. The patient reports for the fat past 3 days he has had difficulty with weakness where he was unable to stand. He states his legs just gave out. The patient presented to the emergency department and was found to be hypotensive, in addition he was found to have new onset atrial fibrillation. The patient was initially placed on Levophed for blood pressure control. He also was given IV Cardizem for heart rate control. He ultimately was weaned off the Levophed, started on digoxin for rate control. In addition the patient had an extensive workup in the emergency department. His white count is 8.7 hemoglobin 9.6 hematocrit 28.9, sodium 133, proBNP 865, procalcitonin elevated at 1.29, UA is negative, blood cultures are pending. MRSA swab is positive for MRSA. Patient is SARS COVID-19 negative. The patient underwent a CT of the chest abdomen and pelvis. This CT of the chest showed a stable right upper lobe pulmonary nodule, improved right anterior lung pleural thickening, decrease in the right-sided pleural effusion, stable enlarged mediastinal and right perihilar lymph nodes, and diffuse metastases. There was also incidental findings to include mild cardiomegaly, cholecyste ctomy, simple right renal status, a nonobstructing right sided kidney stone, diverticulosis without diverticulitis, postoperative clips near the right thyroid, and atherosclerotic calcification. Patient was admitted to the intensive care unit. He was hypotensive with a systolic blood pressure of 89. He was given IV hydration with improvement of both his heart rate and blood pressure. Patient reports fevers to 101 at home, cough with minimally productive sputum, no nausea vomiting or diarrhea. Had no headache. He denies any dysuria hematuria or pyuria. Patient does not report a history of atrial fibrillation, no chest pain, patient reports some shortness of breath but this is unchanged from previous. Patient is admitted to the hospital for further treatment. Blood cultures have been obtained which are pending. Patient History Medical History Diabetes mellitus Gastroesophageal reflux disease Hyperlipidemia Hypertension Pleural effusion Surgical History H/O right wrist surgery H/O rotator cuff surgery History of carpal tunnel surgery History of carpal tunnel surgery Hx of appendectomy Hx of inguinal hernia surgery Hx of knee surgery Previous back surgery Family & Social History Family History Father Cardiac disease Social History: household members spouse Prior Living Arrangements House Safety & Behavioral: Feels Safe in Current Yes Environment Been Physically Hurt or No Threatened By a Person Tobacco & Substance use: Smoking Status Former smoker alcohol intake current alcohol intake frequency holiday/special occasion Substance Use Type opiates,prescription drug Meds Home Medications and Allergies Home Medications Medication Instructions Recorded Confirmed Type atorvastatin 40 mg tablet 40 mg PO DAILY 05/10/20 08/22/20 History hydrochlorothiazide 25 mg tablet 25 mg PO QAM 05/10/20 08/22/20 History losartan 50 mg tablet 50 mg PO DAILY 05/10/20 08/22/20 History omeprazole 40 mg capsule,delayed 40 mg PO QAM 05/10/20 08/22/20 History release cholecalciferol (vitamin D3) 25 1,000 unit DAILY 05/19/20 08/22/20 History mcg (1,000 unit) capsule (Vitamin D3) ferrous sulfate 325 mg (65 mg 325 mg PO DAILY 05/19/20 08/22/20 History iron) tablet (Iron (ferrous sulfate)) multivitamin 1 tab PO DAILY 05/19/20 08/22/20 History omega-3 fatty acids 1,000 mg PO DAILY 05/19/20 08/22/20 History metformin 500 mg tablet 500 mg PO DAILY 06/04/20 08/22/20 History oxycodone 10 mg tablet,extended 10 mg PO Q6HR PRN 06/04/20 08/22/20 History release,12 hr oxycodone 10 mg tablet 10 - 20 mg PO Q6H PRN #100 tab 06/08/20 08/22/20 Rx ondansetron 8 mg disintegrating 8 mg PO Q12H PRN 07/20/20 08/22/20 History tablet Allergies Allergy/AdvReac Type Severity Reaction Status Date / Time Penicillins Allergy Unknown Verified 08/22/20 10:48 Sulfa (Sulfonamide Allergy Unknown Verified 08/22/20 10:48 Antibiotics) Review of Systems Review of Systems Narrative: 10 point Review of systems are negative except as described above Exam Vital Signs (past 8 hours): - 08/22/20 10:08 08/22/20 10:20 08/22/20 10:21 Temperature 97.4 F L Pulse Rate 190 H 175 H 190 H Respiratory Rate 24 20 25 H Blood Pressure 79/49 L 79/49 L Pulse Oximetry 95 98 97 08/22/20 10:22 08/22/20 10:24 08/22/20 10:25 Temperature Pulse Rate 184 H 180 H 178 H Respiratory Rate 27 H 28 H 26 H Blood Pressure 72/48 L 85/53 L Pulse Oximetry 98 98 97 08/22/20 10:27 08/22/20 10:30 08/22/20 10:31 Temperature Pulse Rate 183 H 185 H 183 H Respiratory Rate 27 H 25 H 29 H Blood Pressure 77/50 L 97/54 L Pulse Oximetry 88 L 08/22/20 10:35 08/22/20 10:39 08/22/20 10:40 Temperature Pulse Rate 178 H 178 H 183 H Respiratory Rate 17 14 25 H Blood Pressure 92/51 L Pulse Oximetry 98 98 97 08/22/20 10:43 08/22/20 10:45 08/22/20 10:50 Temperature Pulse Rate 173 H 176 H 165 H Respiratory Rate 21 24 28 H Blood Pressure 94/52 L 74/48 L 86/61 L Pulse Oximetry 97 97 97 08/22/20 10:55 08/22/20 10:59 08/22/20 11:00 Temperature Pulse Rate 169 H 174 H 173 H Respiratory Rate 27 H 18 28 H Blood Pressure 86/52 L 76/50 L Pulse Oximetry 97 98 98 08/22/20 11:03 08/22/20 11:05 08/22/20 11:09 Temperature Pulse Rate 160 H 154 H 121 H Respiratory Rate 22 19 14 Blood Pressure 92/52 L 100/58 L 103/58 L Pulse Oximetry 97 98 98 08/22/20 11:10 08/22/20 11:13 08/22/20 11:15 Temperature Pulse Rate 110 H 109 H 106 H Respiratory Rate 12 16 10 L Blood Pressure 92/51 L Pulse Oximetry 98 100 100 08/22/20 11:16 08/22/20 11:20 08/22/20 11:24 Temperature Pulse Rate 104 H 103 H 103 H Respiratory Rate 24 13 11 L Blood Pressure 96/56 L 100/55 L Pulse Oximetry 100 100 100 08/22/20 11:25 08/22/20 11:30 08/22/20 11:35 Temperature Pulse Rate 101 H 104 H 111 H Respiratory Rate 21 9 L 26 H Blood Pressure 94/51 L 101/58 L Pulse Oximetry 100 100 100 08/22/20 11:36 08/22/20 11:40 08/22/20 11:42 Temperature Pulse Rate 102 H 102 H 99 H Respiratory Rate 20 12 22 Blood Pressure 92/58 L 93/56 L Pulse Oximetry 100 100 100 08/22/20 11:44 08/22/20 11:46 08/22/20 11:48 Temperature Pulse Rate 109 H 105 H 110 H Respiratory Rate 17 25 H 22 Blood Pressure 101/48 L Pulse Oximetry 100 100 100 08/22/20 11:50 08/22/20 11:52 08/22/20 11:54 Temperature Pulse Rate 110 H 109 H 103 H Respiratory Rate 18 17 11 L Blood Pressure Pulse Oximetry 100 100 100 08/22/20 11:55 08/22/20 11:56 08/22/20 11:58 Temperature Pulse Rate 110 H 108 H 106 H Respiratory Rate 11 L 9 L 19 Blood Pressure 87/51 L Pulse Oximetry 100 100 100 08/22/20 12:00 08/22/20 12:02 08/22/20 12:04 Temperature Pulse Rate 113 H 110 H 110 H Respiratory Rate 22 22 18 Blood Pressure Pulse Oximetry 100 100 100 08/22/20 12:05 08/22/20 12:06 08/22/20 12:15 Temperature Pulse Rate 124 H 100 H 116 H Respiratory Rate 25 H 22 15 Blood Pressure 102/63 100/57 L Pulse Oximetry 100 100 100 08/22/20 12:16 08/22/20 12:18 08/22/20 12:20 Temperature Pulse Rate 108 H 109 H 107 H Respiratory Rate 16 20 19 Blood Pressure 102/58 L Pulse Oximetry 100 100 100 08/22/20 12:21 08/22/20 12:22 08/22/20 12:24 Temperature Pulse Rate 113 H 114 H 115 H Respiratory Rate 22 14 19 Blood Pressure 98/64 Pulse Oximetry 100 100 100 08/22/20 12:25 08/22/20 12:26 08/22/20 12:28 Temperature Pulse Rate 112 H 118 H 118 H Respiratory Rate 21 20 12 Blood Pressure 101/51 L Pulse Oximetry 100 100 100 08/22/20 12:29 08/22/20 12:30 08/22/20 12:32 Temperature Pulse Rate 116 H 117 H Respiratory Rate 12 Blood Pressure 102/52 L Pulse Oximetry 100 100 08/22/20 12:34 08/22/20 12:36 08/22/20 12:38 Temperature Pulse Rate 126 H 138 H 108 H Respiratory Rate 23 28 H Blood Pressure Pulse Oximetry 100 98 08/22/20 12:40 08/22/20 12:42 08/22/20 12:44 Temperature Pulse Rate 126 H 124 H 121 H Respiratory Rate 22 20 25 H Blood Pressure 104/53 L Pulse Oximetry 96 96 97 08/22/20 12:46 08/22/20 12:48 08/22/20 12:50 Temperature Pulse Rate 105 H 118 H 112 H Respiratory Rate 12 14 Blood Pressure 108/60 105/55 L Pulse Oximetry 98 99 100 08/22/20 12:52 08/22/20 12:54 08/22/20 12:56 Temperature Pulse Rate 121 H 130 H 130 H Respiratory Rate 14 20 23 Blood Pressure 103/63 Pulse Oximetry 100 100 99 08/22/20 12:58 08/22/20 13:00 08/22/20 13:02 Temperature Pulse Rate 120 H 130 H 114 H Respiratory Rate 17 20 21 Blood Pressure 87/55 L 110/51 L Pulse Oximetry 99 99 98 08/22/20 13:04 08/22/20 13:05 08/22/20 13:06 Temperature Pulse Rate 115 H 112 H 121 H Respiratory Rate 15 23 18 Blood Pressure 94/53 L Pulse Oximetry 98 98 97 08/22/20 13:08 08/22/20 13:10 08/22/20 13:12 Temperature Pulse Rate 120 H 119 H 120 H Respiratory Rate 21 16 20 Blood Pressure 99/56 L Pulse Oximetry 99 98 100 08/22/20 13:14 08/22/20 13:15 08/22/20 13:16 Temperature Pulse Rate 121 H 112 H 124 H Respiratory Rate 20 20 25 H Blood Pressure 102/61 Pulse Oximetry 100 100 100 08/22/20 13:18 08/22/20 13:20 08/22/20 13:22 Temperature Pulse Rate 119 H 134 H 123 H Respiratory Rate 15 17 11 L Blood Pressure 105/55 L Pulse Oximetry 98 99 100 08/22/20 13:24 08/22/20 13:25 08/22/20 13:26 Temperature Pulse Rate 128 H 124 H 123 H Respiratory Rate 20 18 19 Blood Pressure 106/56 L Pulse Oximetry 99 99 99 08/22/20 13:28 08/22/20 13:30 08/22/20 13:31 Temperature Pulse Rate 126 H 115 H 120 H Respiratory Rate 16 24 15 Blood Pressure 105/55 L Pulse Oximetry 98 100 100 08/22/20 13:32 08/22/20 13:34 08/22/20 13:35 Temperature Pulse Rate 115 H 122 H 115 H Respiratory Rate 21 16 23 Blood Pressure 106/62 Pulse Oximetry 99 98 99 08/22/20 13:36 08/22/20 13:38 08/22/20 13:40 Temperature Pulse Rate 124 H 112 H 112 H Respiratory Rate 17 12 16 Blood Pressure 115/56 L Pulse Oximetry 99 99 100 08/22/20 13:42 08/22/20 13:44 08/22/20 13:45 Temperature Pulse Rate 112 H 106 H 109 H Respiratory Rate 22 17 15 Blood Pressure 89/50 L Pulse Oximetry 100 98 99 08/22/20 13:46 08/22/20 13:48 08/22/20 13:50 Temperature Pulse Rate 106 H 98 H 97 H Respiratory Rate 16 14 14 Blood Pressure 96/52 L Pulse Oximetry 100 100 100 08/22/20 13:52 08/22/20 13:54 08/22/20 13:55 Temperature Pulse Rate 102 H 103 H 108 H Respiratory Rate 14 17 23 Blood Pressure 96/55 L Pulse Oximetry 100 99 98 08/22/20 13:56 08/22/20 13:58 08/22/20 14:00 Temperature Pulse Rate 108 H 110 H 101 H Respiratory Rate 16 26 H 22 Blood Pressure 101/56 L Pulse Oximetry 99 99 100 08/22/20 14:02 08/22/20 14:04 08/22/20 14:05 Temperature Pulse Rate 134 H 115 H 109 H Respiratory Rate 32 H 21 19 Blood Pressure 93/53 L Pulse Oximetry 08/22/20 14:06 08/22/20 14:08 08/22/20 14:10 Temperature Pulse Rate 108 H 106 H 103 H Respiratory Rate 17 23 22 Blood Pressure 102/56 L Pulse Oximetry 95 99 98 08/22/20 14:12 08/22/20 14:14 08/22/20 14:15 Temperature Pulse Rate 103 H 109 H 111 H Respiratory Rate 21 21 20 Blood Pressure 88/55 L Pulse Oximetry 96 97 98 08/22/20 14:16 08/22/20 14:18 08/22/20 14:20 Temperature Pulse Rate 112 H 102 H 100 H Respiratory Rate 17 22 16 Blood Pressure 104/56 L Pulse Oximetry 99 98 99 08/22/20 14:22 08/22/20 14:24 08/22/20 14:26 Temperature Pulse Rate 110 H 97 H 99 H Respiratory Rate 21 15 24 Blood Pressure Pulse Oximetry 99 99 99 08/22/20 14:28 08/22/20 14:29 08/22/20 14:30 Temperature Pulse Rate 97 H 104 H 95 H Respiratory Rate 18 24 20 Blood Pressure 146/55 H Pulse Oximetry 99 99 99 08/22/20 14:31 08/22/20 14:32 08/22/20 14:33 Temperature Pulse Rate 97 H 103 H 100 H Respiratory Rate 16 13 20 Blood Pressure 88/53 L 89/54 L 91/53 L Pulse Oximetry 99 99 97 08/22/20 14:34 08/22/20 14:35 08/22/20 14:45 Temperature 97.4 F L Pulse Rate 101 H 95 H 87 Respiratory Rate 21 19 22 Blood Pressure 93/54 L 114/60 Pulse Oximetry 99 99 99 08/22/20 14:51 08/22/20 14:52 08/22/20 14:54 Temperature Pulse Rate 102 H 101 H Respiratory Rate Blood Pressure Pulse Oximetry 93 97 97 08/22/20 14:56 08/22/20 14:58 08/22/20 15:00 Temperature Pulse Rate 110 H 114 H 110 H Respiratory Rate 8 L 13 25 H Blood Pressure Pulse Oximetry 97 98 98 08/22/20 15:02 08/22/20 15:04 08/22/20 15:06 Temperature Pulse Rate 116 H 104 H 103 H Respiratory Rate 15 20 24 Blood Pressure Pulse Oximetry 89 L 93 97 08/22/20 15:08 08/22/20 15:10 08/22/20 15:12 Temperature Pulse Rate 106 H 115 H 97 H Respiratory Rate 20 22 22 Blood Pressure Pulse Oximetry 97 97 97 08/22/20 15:14 08/22/20 15:16 08/22/20 15:18 Temperature Pulse Rate 98 H 105 H 105 H Respiratory Rate 24 30 H 21 Blood Pressure Pulse Oximetry 98 95 98 08/22/20 15:20 08/22/20 15:22 08/22/20 15:24 Temperature Pulse Rate 103 H 99 H 100 H Respiratory Rate 23 19 19 Blood Pressure Pulse Oximetry 97 98 96 08/22/20 15:26 08/22/20 15:28 08/22/20 15:30 Temperature Pulse Rate 98 H 97 H 98 H Respiratory Rate 9 L 16 12 Blood Pressure Pulse Oximetry 97 97 97 08/22/20 15:32 08/22/20 15:34 08/22/20 15:36 Temperature Pulse Rate 100 H 102 H 103 H Respiratory Rate 20 25 H 26 H Blood Pressure Pulse Oximetry 98 97 97 08/22/20 15:38 08/22/20 15:40 08/22/20 15:42 Temperature Pulse Rate 148 H 138 H 139 H Respiratory Rate 33 H 28 H 32 H Blood Pressure Pulse Oximetry 75 L 08/22/20 15:44 08/22/20 15:46 08/22/20 15:48 Temperature Pulse Rate 113 H 119 H 106 H Respiratory Rate 20 28 H 15 Blood Pressure Pulse Oximetry 95 97 98 08/22/20 15:50 08/22/20 15:52 08/22/20 15:54 Temperature Pulse Rate 106 H 107 H 109 H Respiratory Rate 18 15 24 Blood Pressure Pulse Oximetry 97 98 97 08/22/20 15:56 08/22/20 15:58 08/22/20 16:00 Temperature Pulse Rate 108 H 118 H 119 H Respiratory Rate 15 15 16 Blood Pressure Pulse Oximetry 97 97 98 08/22/20 16:02 08/22/20 16:04 08/22/20 16:06 Temperature Pulse Rate 104 H 115 H 120 H Respiratory Rate 20 17 29 H Blood Pressure 112/70 Pulse Oximetry 97 98 97 08/22/20 16:08 08/22/20 16:10 08/22/20 16:12 Temperature Pulse Rate 113 H 133 H 113 H Respiratory Rate 20 19 23 Blood Pressure Pulse Oximetry 98 98 96 08/22/20 16:14 08/22/20 16:16 08/22/20 16:18 Temperature Pulse Rate 115 H 112 H 110 H Respiratory Rate 17 21 22 Blood Pressure Pulse Oximetry 96 98 98 08/22/20 16:20 08/22/20 16:22 08/22/20 16:24 Temperature Pulse Rate 98 H 108 H 104 H Respiratory Rate 21 21 22 Blood Pressure 112/70 Pulse Oximetry 96 97 98 08/22/20 16:26 08/22/20 16:28 08/22/20 16:30 Temperature Pulse Rate 109 H 105 H 97 H Respiratory Rate 25 H 23 23 Blood Pressure Pulse Oximetry 95 97 97 08/22/20 16:32 08/22/20 16:34 08/22/20 16:36 Temperature Pulse Rate 96 H 123 H 95 H Respiratory Rate 9 L 30 H 15 Blood Pressure Pulse Oximetry 98 97 99 08/22/20 16:38 08/22/20 16:40 08/22/20 16:42 Temperature Pulse Rate 96 H 95 H 114 H Respiratory Rate 20 22 32 H Blood Pressure Pulse Oximetry 95 97 97 08/22/20 16:44 08/22/20 16:46 08/22/20 16:48 Temperature Pulse Rate 96 H 96 H 94 H Respiratory Rate 24 22 22 Blood Pressure Pulse Oximetry 99 98 96 08/22/20 16:50 08/22/20 16:52 08/22/20 16:54 Temperature Pulse Rate 95 H 91 H 96 H Respiratory Rate 21 23 22 Blood Pressure Pulse Oximetry 97 98 97 08/22/20 16:56 08/22/20 16:58 08/22/20 17:00 Temperature Pulse Rate 94 H 88 94 H Respiratory Rate 15 16 19 Blood Pressure 89/44 L Pulse Oximetry 97 99 97 08/22/20 17:02 08/22/20 17:04 08/22/20 17:06 Temperature Pulse Rate 93 H 92 H 95 H Respiratory Rate 12 21 13 Blood Pressure Pulse Oximetry 98 98 97 08/22/20 17:08 08/22/20 17:10 Temperature Pulse Rate 101 H 100 H Respiratory Rate 9 L 11 L Blood Pressure Pulse Oximetry 98 98 Oxygen Delivery Method Room Air Narrative Exam Narrative: Elderly male lying in bed, HENCO Other: HEENT: Normocephalic atraumatic, extraocular muscles are intact, oropharynx is clear, there is no exudates noted Neck: Supple without adenopathy, no palpable masses, no thyromegaly Resp Other: Lungs: Diffuse crackles bilaterally, no rhonchi or wheezing Cardio Other: Cardiac exam: Tachycardic irregularly irregular, normal S1-S2, with a 2/6 systolic ejection murmur GI Other: Abdomen: Soft, mildly tender in the right upper quadrant, no palpable masses, no board-like rigidity, no rebound tenderness, Skin Other: No lesions noted Neuro Other: Cranial nerves 2-12 are intact, strength is symmetric and equal, sensations grossly intact, gait is not assessed Extrem Other: Extremities: No edema Psych Other: Patient is awake alert and appropriate, his mood and affect is normal, he has appropriate thought process and content, Objective Labs Result Diagrams: 08/22/20 10:30 08/22/20 10:30 Labs: Laboratory Results - last 24 hr 08/22/20 08/22/20 08/22/20 10:30 10:30 10:30 WBC 8.7 RBC 3.49 L Hgb 9.6 L Hct 28.9 L MCV 82.8 MCH 27.6 MCHC 33.3 RDW 20.0 H Plt Count 164 Neut % (Auto) 60.5 Lymph % (Auto) 20.5 L [place] % (Auto) 18.6 H Eos % (Auto) 0.1 L Baso % (Auto) 0.3 Neut # (Auto) 5200 Lymph # (Auto) 1800 [place] # (Auto) 1600 H Eos # (Auto) 0 Baso # (Auto) 0 PT 17.5 H INR 1.6 H APTT 26 L D Sodium 133 L Potassium 3.8 Chloride 98 Carbon Dioxide 29 BUN 16 Creatinine 0.81 Estimated GFR > 60.0 BUN/Creatinine Ratio 19.8 Glucose 111 H Lactate Calcium 9.6 Total Bilirubin 0.7 AST 45 ALT 13 Alkaline Phosphatase 125 Total Creatine Kinase 44 L CK-MB (CK-2) TNP CK-MB (CK-2) Rel Index TNP Troponin I 0.030 NT-Pro-B Natriuret Pep 865 H Total Protein 6.8 Albumin 3.6 Globulin 3.2 Albumin/Globulin Ratio 1.1 Procalcitonin 1.29 H Urine Color Urine Appearance Urine pH Ur Specific [place] Urine Protein Urine Glucose (UA) Urine Ketones Urine Occult Blood Urine Nitrate Urine Bilirubin Urine Urobilinogen Ur Leukocyte Esterase Urine RBC Urine WBC Amorphous Sediment Urine Bacteria Urine Mucus Ur Culture Indicated? Nasal Screen MRSA (PCR) SARS-CoV-2 (PCR) 08/22/20 08/22/20 08/22/20 10:30 10:30 10:38 WBC RBC Hgb Hct MCV MCH MCHC RDW Plt Count Neut % (Auto) Lymph % (Auto) [place] % (Auto) Eos % (Auto) Baso % (Auto) Neut # (Auto) Lymph # (Auto) [place] # (Auto) Eos # (Auto) Baso # (Auto) PT INR APTT Cancelled Sodium Potassium Chloride Carbon Dioxide BUN Creatinine Estimated GFR BUN/Creatinine Ratio Glucose Lactate 1.7 Calcium Total Bilirubin AST ALT Alkaline Phosphatase Total Creatine Kinase CK-MB (CK-2) CK-MB (CK-2) Rel Index Troponin I NT-Pro-B Natriuret Pep Total Protein Albumin Globulin Albumin/Globulin Ratio Procalcitonin Urine Color Urine Appearance Urine pH Ur Specific [place] Urine Protein Urine Glucose (UA) Urine Ketones Urine Occult Blood Urine Nitrate Urine Bilirubin Urine Urobilinogen Ur Leukocyte Esterase Urine RBC Urine WBC Amorphous Sediment Urine Bacteria Urine Mucus Ur Culture Indicated? Nasal Screen MRSA (PCR) SARS-CoV-2 (PCR) Negative 08/22/20 08/22/20 08/22/20 14:10 14:30 15:00 WBC RBC Hgb Hct MCV MCH MCHC RDW Plt Count Neut % (Auto) Lymph % (Auto) [place] % (Auto) Eos % (Auto) Baso % (Auto) Neut # (Auto) Lymph # (Auto) [place] # (Auto) Eos # (Auto) Baso # (Auto) PT INR APTT Sodium Potassium Chloride Carbon Dioxide BUN Creatinine Estimated GFR BUN/Creatinine Ratio Glucose Lactate Calcium Total Bilirubin AST ALT Alkaline Phosphatase Total Creatine Kinase CK-MB (CK-2) CK-MB (CK-2) Rel Index Troponin I NT-Pro-B Natriuret Pep Total Protein Albumin Globulin Albumin/Globulin Ratio Procalcitonin Urine Color Yellow Urine Appearance Clear Urine pH 5.5 Ur Specific [place] <=1.005 Urine Protein Trace H Urine Glucose (UA) Negative Urine Ketones Negative Urine Occult Blood Negative Urine Nitrate Negative Urine Bilirubin Negative Urine Urobilinogen 0.2 Ur Leukocyte Esterase Negative Urine RBC None seen Urine WBC None seen Amorphous Sediment 2+ Urine Bacteria None seen Urine Mucus 2+ H Ur Culture Indicated? Cult not indicated Nasal Screen MRSA (PCR) Positive for mrsa H SARS-CoV-2 (PCR) Negative Assessment & Plan Assessment & Plan narrative: Impression 1. 84-year-old male admitted to the [facility] with new onset atrial fibrillation with a rapid ventricular response and associated hypotension -patient likely has underlying SIRS, given reported fever to 101, cough and hypotension -given low blood pressure the patient was not able to tolerate IV beta- elda or IV calcium channel elda -he is loaded on digoxin, goal for to 50 mcg q.6 hours for total of 1 g -will continue IV hydration to support blood pressure -was blood pressure is stable consider beta-elda for long-term maintenance -will obtain cardiac echo to evaluate further 2. Hypotension -no evidence to suggest septic shock, white count normal, lactate elevated at 1.7, procalcitonin elevated at 1.29 will repeat, no evidence of end organ damage -CT of the chest and abdomen reveals no evidence of intra-abdominal infection there was no evidence of pneumonia -suspect hypotension related to atrial fibrillation -however given the patient's recent chemotherapy and immunocompromised state will empirically cover him with antibiotics to include meropenem and vancomycin -the patient is MRSA positive -blood cultures obtained and are pending -urine cultures are negative at this time -will repeat chest x-ray in the morning 3. 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 Hypertension -all antihypertensive held given the patient's hypotension. Hydrochlorothiazide/losartan are being held 5. GERD -continue PPI 6. Type 2 diabetes -metformin on hold -will start sliding scale insulin 7. Chronic back pain -will continue the patient's usual home pain med regimen 8. Hyperlipidemia -continue atorvastatin The patient reports he is DNR DNI, his Delfina is his surrogate decision maker Scores SOFA PaO2/FIO2: >=400 mmHg Platelets: >= 150 Bilirubin: < 1.2 mg/dL Hypotension: MAP < 70 mmHg [place] Coma Scale: 15 Renal: < 1.2 mg/dL SOFA Score: 1 Quality VTE Deep Vein Thrombosis/Pulmonary Embolism Present on Admission: No MIPS - Admit I confirm the patient?s Advance Care Plan is present, Code status is documented, Surrogate decision maker is in patient?s record [If Yes, STOP here]: Yes
[2020-08-22 18:33] LABS: Lactate (Lactic Acid) 0.7 mmol/L (0.7-2.1)
[2020-08-22 18:34] LABS: Alanine Aminotransferase 10 IU/L (<50); Albumin 2.7 g/dL (3.5-5.0); Alkaline Phosphatase 96 U/L (38-126); Aspartate Aminotransferase 33 IU/L (17-59); BUN Creatinine Ratio 28.8 (6-22); Bilirubin Total 0.4 mg/dL (0.2-1.3); Blood Urea Nitrogen 15 mg/dL (9-20); Calcium 8.1 mg/dL (8.4-10.2); Carbon Dioxide 25 mmol/L (22-32); Chloride 104 mmol/L (98-107); Estimated Glomerular Filt Rate > 60.0 mL/min (>60); Globulin 2.7 g/dL (1.7-4.1); Glucose 105 mg/dL (80-110); HEMOLYSIS < 15 (0-50); Potassium 3.4 mmol/L (3.4-5.1); Sodium 132 mmol/L (137-145); Total Protein 5.4 g/dL (6.3-8.2)
[2020-08-22] MEDS: LACTATED RINGERS 1,000 ML 200 ML IV (18:37)
[2020-08-22] MEDS: MEROPENEM 2 GM in SODIUM CHLORIDE 0.9% 100 ML 200 ML IV (18:39)
[2020-08-22 19:05] LABS: Add Manual Diff / Slide Review NO; Basophils Absolute Auto 0 /uL (0-100); Basophils Percent Auto 0.3 % (0-2); Eosinophils Absolute Auto 0 /uL (0-450); Eosinophils Percent Auto 0.2 % (2-4); Hematocrit 25.4 % (41-53); Hemoglobin 8.3 g/dL (13.5-17.5); Lymphocytes Absolute Auto 1200 /uL (1100-4500); Lymphocytes Percent Auto 17.8 % (25-40); Mean Corpuscular HGB Conc 32.8 % (30-36); Mean Corpuscular Hemoglobin 27.4 PG (26-34); Mean Corpuscular Volume 83.5 fL (80-100); Monocytes Absolute Auto 1000 /uL (0-900); Monocytes Percent Auto 14.6 % (3-14); Neutrophils Absolute Auto 4400 /uL (1500-7000); Neutrophils Percent Auto 67.1 % (50-75); Platelet Count 123 X10^3/uL (150-400); Red Blood Cell Count 3.05 X10^6/uL (4.5-5.9); White Blood Cell Count 6.6 X10^3/uL (4.5-11.0)
[2020-08-22] MEDS: ATORVASTATIN 20 MG TABLET 40 MG PO (20:26)
[2020-08-22] MEDS: DOCUSATE 100 MG CAPSULE PO (20:27)
[2020-08-22] MEDS: OXYCODONE IR 5 MG TABLET 10 MG PO (20:27)
[2020-08-23] VITALS (22 sets, daily range): BP systolic 94–152; BP diastolic 45–89; PULSE 72–98; RESP 8–23; TEMP 36.5–37.2; O2SAT 93–97
[2020-08-23] MEDS: DIGOXIN 500 MCG/2 ML AMPUL 250 MCG IV ×3 (00:32→11:49)
[2020-08-23] MEDS: LACTATED RINGERS 1,000 ML 200 ML IV (00:33)
[2020-08-23] MEDS: MEROPENEM 2 GM in SODIUM CHLORIDE 0.9% 100 ML 200 ML IV ×2 (02:07→09:30)
[2020-08-23 05:54] LABS: Procalcitonin 0.81 ng/mL (<0.5)
[2020-08-23] MEDS: PANTOPRAZOLE DR 40 MG TABLET PO (06:30)
[2020-08-23] MEDS: SODIUM CHLORIDE 0.9% FLUSH 10 ML IV (06:30)
--- NOTE | 2020-08-23 06:43 | PC.NURSE ---
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
--- NOTE | 2020-08-23 07:30 | DI.RAD.S_ITS ---
PROCEDURE: XR CHEST 1V INDICATIONS: r/o pneumonia TECHNIQUE: One view of the chest was acquired. COMPARISON: [facility], CT, CT CHEST ABD PEL W CON, 08/22/2020, 12:20. [facility], CR, XR CHEST 1V, 08/22/2020, 10:52. [facility], CR, XR CHEST 1V, 06/04/2020, 15:40. FINDINGS: Surgical changes and devices: Right-sided port with the catheter tip projecting at the lower 3rd of the SVC. ACDF. Clips in the lower neck. Lungs and pleura: Lower lung volumes. Mild bilateral patchy opacity similar to the prior exam. Blunting of the right costophrenic angle due to small effusion. No significant effusion on the left. No pneumothorax seen. Mediastinum: Mediastinal contours appear unchanged. Adenopathy seen on recent CT. Heart size is normal. Bones and chest wall: Right shoulder anchors. No suspicious bony lesions. Overlying soft tissues appear unremarkable. IMPRESSION: Mild bilateral patchy airspace opacity similar to the prior exam. This could be due to pneumonia, aspiration, or previously seen pulmonary nodules. Small right pleural effusion. Dictated by: Jovan Marie M.D. on 08/23/2020 at 7:53 Approved by: Jovan Marie M.D. on 08/23/2020 at 7:57
[2020-08-23] MEDS: ENOXAPARIN 40 MG/0.4 ML SYRINGE SUBCUT (08:44)
[2020-08-23] MEDS: OXYCODONE IR 5 MG TABLET 10 MG PO ×2 (08:44→18:46)
[2020-08-23] MEDS: DOCUSATE 100 MG CAPSULE PO ×2 (08:44→21:40)
[2020-08-23 09:16] LABS: Add Manual Diff / Slide Review NO; Basophils Absolute Auto 0 /uL (0-100); Basophils Percent Auto 0.5 % (0-2); Eosinophils Absolute Auto 0 /uL (0-450); Eosinophils Percent Auto 0.4 % (2-4); Hematocrit 24.7 % (41-53); Hemoglobin 8.1 g/dL (13.5-17.5); Lymphocytes Absolute Auto 1000 /uL (1100-4500); Lymphocytes Percent Auto 15.2 % (25-40); Mean Corpuscular HGB Conc 32.7 % (30-36); Mean Corpuscular Hemoglobin 27.5 PG (26-34); Monocytes Absolute Auto 700 /uL (0-900); Monocytes Percent Auto 10.4 % (3-14); Neutrophils Absolute Auto 5100 /uL (1500-7000); Neutrophils Percent Auto 73.5 % (50-75); Platelet Count 146 X10^3/uL (150-400); Red Blood Cell Count 2.94 X10^6/uL (4.5-5.9); Red Cell Distribution Width 20.6 % (11.6-14.8); White Blood Cell Count 6.9 X10^3/uL (4.5-11.0)
[2020-08-23 09:25] LABS: BUN Creatinine Ratio 33.3 (6-22); Blood Urea Nitrogen 15 mg/dL (9-20); Calcium 8.7 mg/dL (8.4-10.2); Carbon Dioxide 25 mmol/L (22-32); Chloride 105 mmol/L (98-107); Estimated Glomerular Filt Rate > 60.0 mL/min (>60); Glucose 102 mg/dL (80-110); HEMOLYSIS < 15 (0-50); Potassium 3.5 mmol/L (3.4-5.1); Sodium 134 mmol/L (137-145)
[2020-08-23 09:36] LABS: Troponin I 0.062 ng/mL (0.01-0.034)
[2020-08-23 09:41] LABS: Magnesium 0.8 mg/dL (1.6-2.3)
[2020-08-23] MEDS: MAGNESIUM SULFATE 4 GM/100 ML PIGGYBACK IV (09:57)
--- NOTE | 2020-08-23 10:39 | PC.NURSE ---
PT'S ONLY COMPLAINT IS OF BACK PAIN- WHICH IS CHRONIC - MEDICATED WITH 10MG PO OXYCODONE - PORT ACCESSED FOR AM LABS WITH A RESULT OF VERY LOW MAGNESIUM WHICH IS BEING REPLACED PER DR ORDERS - LUNGS DECREASED WITH FAINT BIBASILAR CRACKLES- REQUIRING NO O2 USE SPO2 MID TO HIGH 90'S, TROPONIN WITH SLIGHT BUMP - DAUGHTER AT BEDSIDE
[2020-08-23 10:51] LABS: Anisocytosis 2+; Basophilic Stippling 1+; Poikilocytosis 1+; Polychromasia 1+
--- NOTE | 2020-08-23 11:35 | PC.NURSE ---
Pt's daughter came in today to report that pt is inpatient in ICU with Dx of sepsis and Afib. See attached H&P. Making provider aware with this note. This RN informed daughter to contact us when he is discharged for a f/u appointment.
[2020-08-23] MEDS: LACTATED RINGERS 1,000 ML 125 ML IV ×2 (12:47→17:01)
--- NOTE | 2020-08-23 15:20 | P.PN_ITS ---
Subjective Subjective Date Patient Seen: 08/23/20 Time Patient Seen: 15:20 Interval history: This is an 84-year-old male currently undergoing chemotherapy who was admitted with hypotension and new diagnosis of AFib with RVR. There was concern about possible infection given his chemotherapy and presentation, however no definitive source can be found but he is improving with antibiotic therapy and improved rate control. His magnesium was noted to be 0.8 this mor barrington and he was given 4 g of magnesium via IV today, this likely was contributing toward his atrial fibrillation. He was loaded with IV digoxin overnight, however his blood pressure is improved today and we will change his rate control to oral metoprolol and will hopefully improve AFib with improvement in his magnesium. He denies any chest pain, pressure, or palpitations. He denies any nausea, vomiting, fever, chills today. Exam Vital Signs (past 8 hours): - 08/23/20 07:26 08/23/20 09:11 08/23/20 11:32 Temperature 97.9 F 98.8 F Pulse Rate 84 81 Respiratory Rate 23 16 Blood Pressure 134/62 123/56 L Pulse Oximetry 95 95 95 08/23/20 11:49 08/23/20 12:02 Temperature Pulse Rate 85 Respiratory Rate Blood Pressure Pulse Oximetry 95 Oxygen Delivery Method Room Air Oxygen Flow Rate 0 Narrative Exam Narrative: Elderly male sitting upright in chair, no acute distress HEENT: Normocephalic atraumatic, extraocular muscles are intact, oropharynx is clear, there is no exudates noted Neck: Supple without adenopathy, no palpable masses, no thyromegaly Lungs: diminshed breath sounds bilateral lung bases, no wheezing, rhonchi, or obvious rales. Cardiac exam: irregularly irregular with normal rate. no murmur. Abdomen: Soft, mildly tender in the right upper quadrant, no palpable masses, no board-like rigidity, no rebound tenderness, Neuro: Cranial nerves 2-12 are intact, strength is symmetric and equal, sensations grossly intact, gait is not assessed Extremities: No edema, no effusions in joints. Psych: Patient is awake alert and appropriate, his mood and affect is normal, he has appropriate thought process and content, Objective Labs Result Diagrams: 08/23/20 08:50 08/23/20 08:50 Labs: Laboratory Results - last 24 hr 08/22/20 08/22/2021 14:30 15:00 18:15 WBC RBC Hgb Hct MCV MCH MCHC RDW Plt Count Neut % (Auto) Lymph % (Auto) [place] % (Auto) Eos % (Auto) Baso % (Auto) Neut # (Auto) Lymph # (Auto) [place] # (Auto) Eos # (Auto) Baso # (Auto) RBC Morphology Polychromasia Poikilocytosis Basophilic Stippling Anisocytosis Sodium 132 L Potassium 3.4 Chloride 104 Carbon Dioxide 25 BUN 15 Creatinine 0.52 L Estimated GFR > 60.0 BUN/Creatinine Ratio 28.8 H Glucose 105 Lactate Calcium 8.1 L Magnesium Total Bilirubin 0.4 AST 33 ALT 10 Alkaline Phosphatase 96 Troponin I Total Protein 5.4 L Albumin 2.7 L Globulin 2.7 Albumin/Globulin Ratio 1.0 Procalcitonin Nasal Screen MRSA (PCR) Positive for mrsa H SARS-CoV-2 (PCR) Negative 08/22/20 08/22/20 08/23/20 18:15 18:50 05:10 WBC 6.6 RBC 3.05 L Hgb 8.3 L Hct 25.4 L MCV 83.5 MCH 27.4 MCHC 32.8 RDW 20.0 H Plt Count 123 L Neut % (Auto) 67.1 Lymph % (Auto) 17.8 L [place] % (Auto) 14.6 H Eos % (Auto) 0.2 L Baso % (Auto) 0.3 Neut # (Auto) 4400 Lymph # (Auto) 1200 [place] # (Auto) 1000 H Eos # (Auto) 0 Baso # (Auto) 0 RBC Morphology Polychromasia Poikilocytosis Basophilic Stippling Anisocytosis Sodium Potassium Chloride Carbon Dioxide BUN Creatinine Estimated GFR BUN/Creatinine Ratio Glucose Lactate 0.7 Calcium Magnesium Total Bilirubin AST ALT Alkaline Phosphatase Troponin I Total Protein Albumin Globulin Albumin/Globulin Ratio Procalcitonin 0.81 H Nasal Screen MRSA (PCR) SARS-CoV-2 (PCR) 08/23/20 08/23/20 08/23/20 08:50 08:50 08:50 WBC 6.9 RBC 2.94 L Hgb 8.1 L Hct 24.7 L MCV 84.0 MCH 27.5 MCHC 32.7 RDW 20.6 H Plt Count 146 L Neut % (Auto) 73.5 Lymph % (Auto) 15.2 L [place] % (Auto) 10.4 Eos % (Auto) 0.4 L Baso % (Auto) 0.5 Neut # (Auto) 5100 Lymph # (Auto) 1000 L [place] # (Auto) 700 Eos # (Auto) 0 Baso # (Auto) 0 RBC Morphology See below Polychromasia 1+ H Poikilocytosis 1+ H Basophilic Stippling 1+ H Anisocytosis 2+ H Sodium 134 L Potassium 3.5 Chloride 105 Carbon Dioxide 25 BUN 15 Creatinine 0.45 L Estimated GFR > 60.0 BUN/Creatinine Ratio 33.3 H Glucose 102 Lactate Calcium 8.7 Magnesium 0.8 L* Total Bilirubin AST ALT Alkaline Phosphatase Troponin I 0.062 H Total Protein Albumin Globulin Albumin/Globulin Ratio Procalcitonin Nasal Screen MRSA (PCR) SARS-CoV-2 (PCR) [facility] Medical History Diabetes mellitus Gastroesophageal reflux disease Hyperlipidemia Hypertension Pleural effusion Surgical History H/O right wrist surgery H/O rotator cuff surgery History of carpal tunnel surgery History of carpal tunnel surgery Hx of appendectomy Hx of inguinal hernia surgery Hx of knee surgery Previous back surgery Family History Father Cardiac disease Social History household members: spouse Smoking Status: Former smoker alcohol intake: current Assessment & Plan Assessment & Plan narrative: 1. 84-year-old male admitted to the hospital with new onset atrial fibrillation with a rapid ventricular response and associated hypotension 1. Paroxysmal atrial fibrillation with RVR, new diagnosis,improved -patient likely has underlying SIRS, given reported fever to 101, cough and hypotension. -given low blood pressure the patient was not able to tolerate IV beta- elda or IV calcium channel elda initially. -he was loaded on digoxin. Can start PO digoxin today, However given Low magnesium at 0.8 likely contributing will not give PO digoxin and correct mg and given improved BP will start low dose metoprolol tonight. -will continue IV hydration to support blood pressure 2. Hypotension, concern for bacterial infection. -no evidence to suggest septic shock, white count normal, lactate elevated at 1.7, procalcitonin elevated at 1.29 will repeat, no evidence of end organ damage -CT of the chest and abdomen reveals no evidence of intra-abdominal infection there was no evidence of pneumonia -suspect hypotension related to atrial fibrillation -however given the patient's recent chemotherapy and immunocompromised state empirically covered him with antibiotics to include meropenem and vancomycin. Will narrow to ceftriaxone today if stable can be discharged on PO antibiotics for 5 days. -the patient is MRSA positive -blood cultures obtained and are pending but without growth. -urine cultures are negative at this time 3. 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 Hypertension -all antihypertensive held given the patient's hypotension initially. Now improved but will add beta elda today given new afib. 5. GERD -continue PPI 6. Type 2 diabetes -metformin on hold -will start sliding scale insulin 7. Chronic back pain -will continue the patient's usual home pain med regimen 8. Hyperlipidemia -continue atorvastatin 9.hypomagenesemia, acute, present on admission - mg level of 0.8 possibly associated with patient's weakness and likely associated with his afib with RVR. Given 4 g of IV repletion today. Will recheck tomorrow. 10. Hypokalemia, acute - K 3.5 today, try to keep above 4 given afib. 11. Elevated troponin - patient with rising troponin values to 0.062 today, likely in setting of afib with RVR. Patient with no chest pain and EKG without ischemic changes. Recommend outpatient cardiology follow up after discharge. Will continue to follow until downtrending. 12. Acute on chronic anemia, normocytic - Hg now 8.1, on the decline since admission, baseline appears to be around 9- 10 as an outpatient. No signs or symptoms of active bleeding, possibly lowered in setting of IV fluids. Will continue to follow. The patient reports he is DNR DNI, his Delfina is his surrogate decision faisal stringer Dispo: possible discharge home tomorrow if afib remains controlled and electrolytes improve. Quality VTE Deep Vein Thrombosis/Pulmonary Embolism Present on Admission: No
[2020-08-23] MEDS: cefTRIAXone 1,000 MG in SODIUM CHLORIDE 0.9% 100 ML 200 ML IV (16:40)
--- NOTE | 2020-08-23 16:41 | CM.DPC ---
DCP Assessment: Patient is a 84 year-old male admitted for treatment of Atrial fibrillation with a rapid ventricular response and associated hypotension. PCP Nico Rocha. Primary payer [facility] and self-pay. Patient?s has a history of small-cell lung CA with Mets to lung and retroperitoneal liver and bone. He is currently receiving care at [facility]. He has completed 2 cycles of chemo and anticipates a 3rd cycle next week. Per nursing patient is up ambulating in room with stand by assistance. MEAT APPRENTICE Student met with patient at bedside he is alert and oriented. Educated patient on role of social work in D/C planning. Patient reports he does not use any adaptive equipment at home and drives at baseline. He has not been driving recently and relies on daughter Shahnaz. Patient did report he uses [facility] currently. Confirmed with Walk-in Appointment Scheduler Health patient was D/C from services on Sunday08/17/20. PLAN: Anticipate home when medically stable. CM Team to continue to follow patient, will continue to assess if [facility] would be needed again at time of D/C. SAUNDRA Cottrell MSW Student Discharge Planning/Care Management Advanced directive, confirm from FAMILY Start: 08/22/20 15:35 Freq: Q24H Status: Active Protocol: Document 08/22/20 15:35 CW (Rec: 08/22/20 16:20 CW [id number]) Advance Directive, confirm on record Time 16:20 Person contacted pt Copy received No CM Discharge Assessment Start: 08/23/20 15:26 Freq: Status: Active Protocol: Document 08/23/20 15:27 AL (Rec: 08/23/20 15:31 AL [id number]) Discharge Planning Assessment Assigned Land Planner SAUNDRA Shaffer Student DPOA/Assigned Designee Name Farrah Valenzuela, Advance Directives? No History Provided By Patient,Medical Record Has Patient been admitted in last 30 No days? Prior Living Arrangements House Household Members spouse Comment Daughter is staying with him temporaily to help out at home Type of transporation used prior to Relies on Others admit Comment Drives at baseline but, is currently relying on daughter Independent with ADL's Yes Is patient alert and oriented? Yes Caregiver for Another No Comment Home health Comment None per patient Patient/Family Preference Home with Home Health Comment Will call and confirm he is still recieving Home Health from [facility]. Barriers to Discharge No Discharge Plan Home Transportation Arrangement Patient daughter Shahnaz will provide transporation Whiteboard Updated in Patient Room with Yes name and ext. # of Land Planner Review Status In Process
[2020-08-23] MEDS: ATORVASTATIN 20 MG TABLET 40 MG PO (21:40)
[2020-08-23] MEDS: METOPROLOL ER 25 MG TABLET 12.5 MG PO (21:40)
[2020-08-24] MEDS: MELATONIN 3 MG TABLET 6 MG PO (00:45)
--- NOTE | 2020-08-24 00:50 | PC.NURSE ---
C/O insomnia HAROLDO Ruvalcaba notified order received to give Melatonin 6 mg. administered. Will monitor & continue POC.
[2020-08-24] MEDS: OXYCODONE IR 5 MG TABLET 10 MG PO (01:19)
[2020-08-24] MEDS: LACTATED RINGERS 1,000 ML 125 ML IV (01:20)
[2020-08-24 04:00] VITALS: BP 155/71; PULSE 79; RESP 18; TEMP 36.6; O2SAT 96
[2020-08-24] MEDS: SODIUM CHLORIDE 0.9% FLUSH 10 ML IV (04:50)
[2020-08-24 05:08] LABS: Add Manual Diff / Slide Review NO; Basophils Absolute Auto 100 /uL (0-100); Basophils Percent Auto 0.8 % (0-2); Eosinophils Absolute Auto 0 /uL (0-450); Eosinophils Percent Auto 0.7 % (2-4); Hematocrit 25.2 % (41-53); Hemoglobin 8.3 g/dL (13.5-17.5); Lymphocytes Absolute Auto 1300 /uL (1100-4500); Lymphocytes Percent Auto 19.9 % (25-40); Mean Corpuscular HGB Conc 32.9 % (30-36); Mean Corpuscular Hemoglobin 27.3 PG (26-34); Mean Corpuscular Volume 82.9 fL (80-100); Monocytes Absolute Auto 700 /uL (0-900); Monocytes Percent Auto 10.3 % (3-14); Neutrophils Absolute Auto 4500 /uL (1500-7000); Neutrophils Percent Auto 68.3 % (50-75); Platelet Count 140 X10^3/uL (150-400); Red Blood Cell Count 3.04 X10^6/uL (4.5-5.9); Red Cell Distribution Width 20.5 % (11.6-14.8); White Blood Cell Count 6.6 X10^3/uL (4.5-11.0)
[2020-08-24 05:12] LABS: BUN Creatinine Ratio 27.5 (6-22); Blood Urea Nitrogen 11 mg/dL (9-20); Calcium 8.8 mg/dL (8.4-10.2); Carbon Dioxide 29 mmol/L (22-32); Chloride 102 mmol/L (98-107); Estimated Glomerular Filt Rate > 60.0 mL/min (>60); Glucose 98 mg/dL (80-110); HEMOLYSIS < 15 (0-50); Magnesium 1.4 mg/dL (1.6-2.3); Potassium 3.7 mmol/L (3.4-5.1); Sodium 134 mmol/L (137-145)
[2020-08-24 05:38] LABS: Anisocytosis 1+
--- NOTE | 2020-08-24 05:54 | PC.NURSE ---
OPEN CUT EXAMINER, Germania, reports patient had a 15 beat run of v-tach; patient currently sleeping.
[2020-08-24] MEDS: PANTOPRAZOLE DR 40 MG TABLET PO (06:34)
[2020-08-24] MEDS: ENOXAPARIN 40 MG/0.4 ML SYRINGE SUBCUT (07:32)
[2020-08-24] MEDS: MAGNESIUM SULFATE 2 GM/50 ML PIGGYBACK IV (07:32)
[2020-08-24] MEDS: DOCUSATE 100 MG CAPSULE PO (07:32)
[2020-08-24] MEDS: METOPROLOL ER 25 MG TABLET 12.5 MG PO (07:33)
[2020-08-24 08:00] VITALS: BP 142/65; PULSE 76; RESP 18; TEMP 36.7; O2SAT 96
--- NOTE | 2020-08-24 08:29 | P.DS_ITS ---
History of Present Illness History of Present Illness Date Patient Seen: 08/24/20 Time Patient Seen: 08:29 Chief complaint: balance and weak low grade fever Narrative: Per Dr. Fernandez, The patient is an 84-year-old male with a history of type 2 diabetes, hypertension, hyperlipidemia, gastroesophageal reflux disease, and small cell lung cancer, he is status post 2 cycles chemotherapy. The patient reports for the fat past 3 days he has had difficulty with weakness where he was unable to stand. He states his legs just gave out. The patient presented to the [facility] department and was found to be hypotensive, in addition he was found to have new onset atrial fibrillation. The patient was initially placed on Levophed for blood pressure control. He also was given IV Cardizem for heart rate control. He ultimately was weaned off the Levophed, started on digoxin for rate control. In addition the patient had an extensive workup in the emergency department. His white count is 8.7 hemoglobin 9.6 hematocrit 28.9, sodium 133, proBNP 865, procalcitonin elevated at 1.29, UA is negative, blood cultures are pending. MRSA swab is positive for MRSA. Patient is SARS COVID-19 negative. The patient underwent a CT of the chest abdomen and pelvis. This CT of the chest showed a stable right upper lobe pulmonary nodule, improved right anterior lung pleural thickening, decrease in the right-sided pleural effusion, stable enlarged mediastinal and right perihilar lymph nodes, and diffuse metastases. There was also incidental findings to include mild cardiomegaly, cholecystectomy, simple right renal status, a nonobstructing right sided kidney stone, diverticulosis without diverticulitis, postoperative clips near the right thyroid, and atherosclerotic calcification. Patient was admitted to the intensive care unit. He was hypotensive with a systolic blood pressure of 89. He was given IV hydration with improvement of both his heart rate and blood pre ssure. Patient reports fevers to 101 at home, cough with minimally productive sputum, no nausea vomiting or diarrhea. Had no headache. He denies any dysuria hematuria or pyuria. Patient does not report a history of atrial fibrillation, no chest pain, patient reports some shortness of breath but this is unchanged from previous. Patient is admitted to the hospital for further treatment. Blood cultures have been obtained which are pending. Discharge Providers Provider Date of admission: 08/22/20 14:08 Discharge Date: 08/24/20 Primary care physician: Nico Rocha MD Discharge provider: Chino Maxwell DO Summary Hospital Course Discharge Diagnosis: Please see hospital course by problem list noted below Hospital Course: 84-year-old male admitted to the hospital with new onset atrial fibrillation with a rapid ventricular response and associated hypotension 1. Paroxysmal atrial fibrillation with RVR, new diagnosis,improved -patient likely has underlying SIRS, given reported fever to 101, cough and hypotension. -given low blood pressure the patient was not able to tolerate IV beta- elda or IV calcium channel elda initially. -he was loaded on digoxin. changed to metopolol as low Mg of 0.8 on labs was likely contributing. Continue metoprolol at home at low dosing. -recommend discussion of anticoagulation with PCP. 2. Hypotension, concern for bacterial infection, pneumonia. -no evidence to suggest septic shock, white count normal, lactate elevated at 1.7, procalcitonin elevated at 1.29 will repeat, no evidence of end organ damage -CT of the chest and abdomen reveals no evidence of intra-abdominal infection there was no evidence of pneumonia, however given reported fever and cough this is ultimately what was treated. Cultures and urinalysis were ultimately negative. -suspect hypotension related to atrial fibrillation, however given the patient's recent chemotherapy and immunocompromised state empirically covered him with antibiotics including meropenem and vancomycin initially then narrowed to ceftriaxone. Discharged on PO cefdinir to complete 7 day total course of antibiotics. 3. 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 4. Hypertension -all antihypertensive held given the patient's hypotension initially. Now im proved but added beta elda given atrial fibrillation. Recommend discontinuation of HCTZ upon discharge. 5. GERD -continue PPI 6. Type 2 diabetes -metformin held during admission, sliding scale insulin ordered during admission . 7. Chronic back pain -continued the patient's usual home pain meds 8. Hyperlipidemia -continued atorvastatin 9.hypomagenesemia, acute, present on admission - mg level of 0.8 possibly associated with patient's weakness and likely associated with his afib with RVR. Given 6 g total of repletion. Recommend outpatient magnesium supplement. 10. Hypokalemia, acute, improved - patient was repleted to assist with rhythm control. 11. Elevated troponin - likely in setting of afib with RVR. Ultimately downtrended. Patient with no chest pain and EKG without ischemic changes. Recommend outpatient cardiology follow up after discharge. 12. Acute on chronic anemia, normocytic - baseline appears to be around 9-10 as an outpatient. No signs or symptoms of active bleeding, possibly lowered in setting of IV fluids. Time Spent with Patient Time spent: Greater than 30 minutes Exam Vital Signs (past 8 hours): - 08/24/20 04:00 08/24/20 08:00 Temperature 97.9 F 98.1 F Pulse Rate 79 76 Respiratory Rate 18 18 Blood Pressure 155/71 H 142/65 H Pulse Oximetry 96 96 Oxygen Delivery Method Room Air Oxygen Flow Rate 0 Narrative Exam Narrative: Elderly male sitting upright in chair, no acute distress HEENT: Normocephalic atraumatic, extraocular muscles are intact, oropharynx is clear, there is no exudates noted Neck: Supple without adenopathy, no palpable masses, no thyromegaly Lungs: diminshed breath sounds bilateral lung bases, no wheezing, rhonchi, or obvious rales. Cardiac exam: irregularly irregular with normal rate. no murmur. Abdomen: Soft, mildly tender in the right upper quadrant, no palpable masses, no board-like rigidity, no rebound tenderness, Neuro: Cranial nerves 2-12 are intact, strength is symmetric and equal, sensations grossly intact, gait is not assessed Extremities: No edema, no effusions in joints. Psych: Patient is awake alert and appropriate, his mood and affect is normal, he has appropriate thought process and content, Objective Labs Result Diagrams: 08/24/20 04:50 08/24/20 04:50 Labs: Laboratory Results - last 24 hr 08/23/20 08/23/20 08/23/20 08:50 08:50 08:50 WBC 6.9 RBC 2.94 L Hgb 8.1 L Hct 24.7 L MCV 84.0 MCH 27.5 MCHC 32.7 RDW 20.6 H Plt Count 146 L Neut % (Auto) 73.5 Lymph % (Auto) 15.2 L [place] % (Auto) 10.4 Eos % (Auto) 0.4 L Baso % (Auto) 0.5 Neut # (Auto) 5100 Lymph # (Auto) 1000 L [place] # (Auto) 700 Eos # (Auto) 0 Baso # (Auto) 0 RBC Morphology See below Polychromasia 1+ H Poikilocytosis 1+ H Basophilic Stippling 1+ H Anisocytosis 2+ H Sodium 134 L Potassium 3.5 Chloride 105 Carbon Dioxide 25 BUN 15 Creatinine 0.45 L Estimated GFR > 60.0 BUN/Creatinine Ratio 33.3 H Glucose 102 Calcium 8.7 Magnesium 0.8 L* Troponin I 0.062 H 08/23/20 08/24/20 08/24/20 16:09 04:50 04:50 WBC 6.6 RBC 3.04 L Hgb 8.3 L Hct 25.2 L MCV 82.9 MCH 27.3 MCHC 32.9 RDW 20.5 H Plt Count 140 L Neut % (Auto) 68.3 Lymph % (Auto) 19.9 L [place] % (Auto) 10.3 Eos % (Auto) 0.7 L Baso % (Auto) 0.8 Neut # (Auto) 4500 Lymph # (Auto) 1300 [place] # (Auto) 700 Eos # (Auto) 0 Baso # (Auto) 100 RBC Morphology See below Polychromasia Poikilocytosis Basophilic Stippling Anisocytosis 1+ H Sodium 134 L Potassium 3.7 Chloride 102 Carbon Dioxide 29 BUN 11 Creatinine 0.40 L Estimated GFR > 60.0 BUN/Creatinine Ratio 27.5 H Glucose 98 Calcium 8.8 Magnesium 1.4 L Troponin I 0.050 H [facility] Medical History Diabetes mellitus Gastroesophageal reflux disease Hyperlipidemia Hypertension Pleural effusion Surgical History H/O right wrist surgery H/O rotator cuff surgery History of carpal tunnel surgery History of carpal tunnel surgery Hx of appendectomy Hx of inguinal hernia surgery Hx of knee surgery Previous back surgery Family History Father Cardiac disease Social History household members: spouse Smoking Status: Former smoker alcohol intake: current Discharge Plan Discharge Plan Patient Disposition: Home Provider Discharge Comment: You were admitted to the hospital with a fast heart rate, atrial fibrillation, and low blood pressure. No infection was found but given your presentation antibiotics will be continued for a 7 day course. Your magnesium level was very low which was repleted. I recommend stopping your HCTZ and we have started a medication called metoprolol to try and prevent you from developing this heart arrythmia to some extent. You should follow up with your PCP within 1-2 weeks to review your blood pressures and medications. You can help Dr. Rocha by keeping a log of your blood pressures until your follow up visit. Nursing Discharge Comment: *Appt with on Sunday September 06, 2020 at 3pm in the [facility]. [phone] Discharge orders & Medications Prescriptions: New metoprolol succinate 25 mg Tablet Extended Release 24 Hr 12.5 mg PO BID 30 Days Qty: 30 RF: 0 magnesium 200 mg tablet 200 mg PO DAILY 30 Days Qty: 30 RF: 0 cefdinir 300 mg capsule 300 mg PO BID 5 Days Qty: 10 RF: 0 Continued losartan 50 mg tablet 50 mg PO DAILY RF: 0 atorvastatin 40 mg tablet 40 mg PO DAILY RF: 0 omeprazole 40 mg capsule,delayed release(DR/EC) 40 mg PO QAM RF: 0 multivitamin Tablet 1 tab PO DAILY RF: 0 ferrous sulfate [Iron (ferrous sulfate)] 325 mg (65 mg iron) Tablet 325 mg PO DAILY RF: 0 cholecalciferol (vitamin D3) [Vitamin D3] 25 mcg (1,000 unit) Capsule 1,000 unit DAILY RF: 0 omega-3 fatty acids Capsule 1,000 mg PO DAILY RF: 0 oxycodone 10 mg Tablet 10 - 20 mg PO Q6H PRN (Reason: Pain (Scale Score 4-6)) Qty: 100 RF: 0 ondansetron 8 mg Tablet,Disintegrating 8 mg PO Q12H PRN (Reason: Nausea) RF: 0 oxycodone 10 mg Tablet Extended Release 12 Hr 10 mg PO Q6HR PRN (Reason: Pain (Scale Score 4-6)) RF: 0 metformin 500 mg Tablet 500 mg PO DAILY RF: 0 Discontinued hydrochlorothiazide 25 mg tablet 25 mg PO QAM RF: 0 Medication counseling provided by Pharmacist: Yes Follow up/Referrals: Nico Rocha MD [Primary Care Provider] - Discharge Health Status Multidrug resistant organism: MRSA Diet/Activity/Treatments Diet: Diet as Tolerated Activity: As tolerated Visit Report/Discharge Packet Instructions: DI for Atrial Fibrillation, Metoprolol, Cefdinir Discharge Data Primary Care Provider: Nico Rocha VTE Deep Vein Thrombosis/Pulmonary Embolism Present on Admission: No
[2020-08-24 09:45] VITALS: PULSE 78; O2SAT 95
--- NOTE | 2020-08-24 10:51 | PC.NURSE ---
Went over dc instructions and medications with patient, questions answered. RX sent to [facility]. Patient aware of follow up appt made with Dr Rocha. Patient taken via wc to vehicle driven by daughter, patient had all belongings, wallet, glasses and phone.
--- NOTE | 2020-08-24 17:07 | CM.DPC ---
DCP Continued: HAND FOLDER met with patient to give him the IMM form prior to his D/C home this date. There were no needs from the CM Team at time of D/C. SAUNDRA Cottrell MSW Student
== END 2020-08-24 10:52 | disposition home or self-care (01) | DRG 309 ==
LOC: ED 14:06 → AC 14:09 → ICU 14:56 → AC 08-23 21:32 → ICU 08-23 21:39 → AC 08-23 22:25
PROVIDERS: Internal Medicine; Admitting Provider Internal Medicine; Emergency Provider Emergency Medicine; PCP Internal Medicine; Referring Provider Emergency Medicine; Visit Provider Internal Medicine
DX: I48.91 Unspecified atrial fibrillation (principal); D84.9 Immunodeficiency, unspecified; C34.90 Malignant neoplasm of unspecified part of unspecified bronchus or lung; C78.1 Secondary malignant neoplasm of mediastinum; C78.7 Secondary malignant neoplasm of liver and intrahepatic bile duct; C78.6 Secondary malignant neoplasm of retroperitoneum and peritoneum; C79.51 Secondary malignant neoplasm of bone; I95.9 Hypotension, unspecified; D63.0 Anemia in neoplastic disease; E83.42 Hypomagnesemia; E87.6 Hypokalemia; R50.9 Fever, unspecified; R79.89 Other specified abnormal findings of blood chemistry; I10 Essential (primary) hypertension; K21.9 Gastro-esophageal reflux disease without esophagitis; E11.9 Type 2 diabetes mellitus without complications; M54.9 Dorsalgia, unspecified; E78.5 Hyperlipidemia, unspecified; Z79.84 Long term (current) use of oral hypoglycemic drugs; Z22.322 Carrier or suspected carrier of Methicillin resistant Staphylococcus aureus; Z87.891 Personal history of nicotine dependence; Z20.822 Contact with and (suspected) exposure to COVID-19
CPT/HCPCS: 36415; 36591; 71045; 71260; 74177; 80048; 80053; 81001; 81003; 82550; 82962; 83605; 83735; 83880; 84145; 84484; 85025; 85610; 85730; 87040; 87635; 87797; 93005; 93010; 96365; 96366; 96367; 96368; 96375; 96376; 99285; 99291; 99292; C9803; J0692; J0696; J1160; J1642; J1650; J1815; J1885; J2185; J3475; Q9967

== ENCOUNTER 2020-08-25 13:18 | Emergency (ER) | payer OTHER, SELFPAY ==
[2020-08-22 14:29] VITALS: BMI 24.4
[2020-08-25 13:55] VITALS: BP 130/74; PULSE 82; RESP 24; TEMP 37.7; O2SAT 96; BMI 24.4
--- NOTE | 2020-08-25 14:28 | ED_ITS ---
HPI - Back Pain/Injury General Chief Complaint: Back Pain/Injury Stated Complaint: extreme pain in shoulders and lower back Time Seen by Provider: 08/25/20 14:22 Source: patient and family Limitations: no limitations History of Present Illness HPI Narrative: 84-year-old male who was just discharged from the hospital yesterday after being admitted for atrial fibrillation with RVR. Returns to the emergency department today for lower back pain. This is not new. He actually had it prior to his admission to the hospital but is potentially slightly worse since he was admitted. He is also now having upper back discomfort. This is new since being discharged. Started last night. He states that is worse with movement. Not worse with touch. No chest pain. No problems breathing. Did take pain medication Related Data Home Medications Medication Instructions Recorded Confirmed atorvastatin 40 mg tablet 40 mg PO DAILY 05/10/20 08/22/20 losartan 50 mg tablet 50 mg PO DAILY 05/10/20 08/22/20 omeprazole 40 mg capsule,delayed 40 mg PO QAM 05/10/20 08/22/20 release cholecalciferol (vitamin D3) 25 1,000 unit DAILY 05/19/20 08/22/20 mcg (1,000 unit) capsule (Vitamin D3) ferrous sulfate 325 mg (65 mg 325 mg PO DAILY 05/19/20 08/22/20 iron) tablet (Iron (ferrous sulfate)) multivitamin 1 tab PO DAILY 05/19/20 08/22/20 omega-3 fatty acids 1,000 mg PO DAILY 05/19/20 08/22/20 metformin 500 mg tablet 500 mg PO DAILY 06/04/20 08/22/20 oxycodone 10 mg tablet,extended 10 mg PO Q6HR PRN 06/04/20 08/22/20 release,12 hr ondansetron 8 mg disintegrating 8 mg PO Q12H PRN 07/20/20 08/22/20 tablet Previous Rx's Medication Instructions Recorded oxycodone 10 mg tablet 10 - 20 mg PO Q6H PRN #100 tab 06/08/20 cefdinir 300 mg capsule 300 mg PO BID 5 Days #10 cap 08/24/20 magnesium 200 mg tablet 200 mg PO DAILY 30 Days #30 tab 08/24/20 metoprolol succinate 25 mg 12.5 mg PO BID 30 Days #30 tab 07/13/21 tablet,extended release 24 hr Allergies Allergy/AdvReac Type Severity Reaction Status Date / Time Penicillins Allergy Unknown Verified 08/25/20 13:55 Sulfa (Sulfonamide Allergy Unknown Verified 08/25/20 13:55 Antibiotics) Review of Systems Constitutional Constitutional: Denies fever(s) Cardiovascular Cardiovascular: Denies chest pain and Denies dyspnea Respiratory Respiratory: Denies dyspnea Gastrointestinal Gastrointestinal: Reports system reviewed and no additional complaints, except as documented Genitourinary Genitourinary: Reports system reviewed and no additional complaints, except as documented Musculoskeletal Musculoskeletal: Reports back pain Integumentary/Breasts Skin/Breast: Reports system reviewed and no additional complaints, except as doc umented Neurologic Neurologic: Reports system reviewed and no additional complaints, except as documented Psychiatric Psychiatric: Reports system reviewed and no additional complaints, except as documented Hematologic/Lymphatic On Anticoagulants: No Allergic/Immunologic Allergic/Immunologic: Reports system reviewed and no additional complaints, except as documented Patient History Medical History Diabetes mellitus Gastroesophageal reflux disease Hyperlipidemia Hypertension Pleural effusion Surgical History H/O right wrist surgery H/O rotator cuff surgery History of carpal tunnel surgery History of carpal tunnel surgery Hx of appendectomy Hx of inguinal hernia surgery Hx of knee surgery Previous back surgery Family History Father Cardiac disease Social History household members: spouse Smoking Status: Former smoker alcohol intake: current Smoking Status: Former smoker alcohol intake frequency: holidays/special occasions only Substance Use Type: opiates and prescription drug Exam Initial Vital Signs Initial Vital Signs: Vital Signs Temperature 99.8 F H 08/25/20 13:55 Pulse Rate 82 08/25/20 13:55 Respiratory Rate 24 08/25/20 13:55 Blood Pressure 130/74 08/25/20 13:55 Pulse Oximetry 96 08/25/20 13:55 Const General: cooperative, healthy appearing and comfortable HENMA Head: normal to inspection and normocephalic Neck Neck: no meningeal signs Resp Effort & Inspection: normal respiratory effort Cardio Rate: regular rate Back/Spine/Pelvis Cervical Spine: cervical muscular tenderness and No cervical spasm Thoracic/Lumbar Spine: paraspinal tenderness (Lumbar and cervical), No thoracic spinal tenderness and No lumbar spinal tenderness Skin General: no rashes or lesions noted Neuro General: patient alert, patient awake and patient oriented x3 Extrem General: normal to inspection and capillary refill normal Psych Appearance: grossly normal and well kempt Course Orders Ordered: ED Orders 08/25/20 14:17 Consult to BUSINESS ACCOUNT EXECUTIVE - Hand Fur Cleaner Stat Vital Signs Vital signs: Vital Signs - 8 hr 08/25/20 13:55 Temperature 99.8 F H Pulse Rate 82 Respiratory Rate 24 Blood Pressure 130/74 Pulse Oximetry 96 MDM - Back Pain/Injury MDM Narrative Medical decision making narrative: I have low suspicion today that his symptoms are ACS. Also have low suspicion of a dissection. His discomfort is very high on his upper back and I suspected this musculoskeletal in origin. Patient was seen by social work. There was discussion about them talk with her primary doctor about other home health/living situations. I do not feel the patient needs admitted to the hospital today. Discussed return precautions and follow- up instructions. They expressed understanding and agreement. Discharge Plan Departure Patient Disposition: Home Clinical Impression: Acute upper back pain, Chronic lower back pain Instructions: DI for Muscle Strain Activity Restrictions/Additional Instructions: I do recommend that he continue all of his medications as directed. He can take Motrin/ibuprofen with some food as needed for the discomfort. I also recommend massage/heat/hi/stretching. He can also continue the rest of his medications as directed. Contact his primary doctor for follow-up. Prescriptions: No Action losartan 50 mg tablet 50 mg PO DAILY RF: 0 atorvastatin 40 mg tablet 40 mg PO DAILY RF: 0 omeprazole 40 mg capsule,delayed release(DR/EC) 40 mg PO QAM RF: 0 multivitamin Tablet 1 tab PO DAILY RF: 0 ferrous sulfate [Iron (ferrous sulfate)] 325 mg (65 mg iron) Tablet 325 mg PO DAILY RF: 0 cholecalciferol (vitamin D3) [Vitamin D3] 25 mcg (1,000 unit) Capsule 1,000 unit DAILY RF: 0 omega-3 fatty acids Capsule 1,000 mg PO DAILY RF: 0 oxycodone 10 mg Tablet 10 - 20 mg PO Q6H PRN (Reason: Pain (Scale Score 4-6)) Qty: 100 RF: 0 ondansetron 8 mg Tablet,Disintegrating 8 mg PO Q12H PRN (Reason: Nausea) RF: 0 oxycodone 10 mg Tablet Extended Release 12 Hr 10 mg PO Q6HR PRN (Reason: Pain (Scale Score 4-6)) RF: 0 metformin 500 mg Tablet 500 mg PO DAILY RF: 0 metoprolol succinate 25 mg Tablet Extended Release 24 Hr 12.5 mg PO BID 30 Days Qty: 30 RF: 0 magnesium 200 mg tablet 200 mg PO DAILY 30 Days Qty: 30 RF: 0 cefdinir 300 mg capsule 300 mg PO BID 5 Days Qty: 10 RF: 0 Referrals: Nico Rocha MD [Primary Care Provider] -
--- NOTE | 2020-08-25 14:55 | CM.SWNOTE ---
ASSISTANT PROFESSOR OF MARINE BIOLOGY Note ASSISTANT PROFESSOR OF MARINE BIOLOGY receives consult and meets with patient and patient's daughter CECE. Patient is 84 y/o male who presents to this ED with upper back pain. Patient has dx of lung cancer, hx of Afib and was d/c'd from yesterday. Patient is A/O x 4 and then fades in and out of sleep when meeting with ASSISTANT PROFESSOR OF MARINE BIOLOGY. Patient is patient [facility] at , patient's next appt is 08/31/20. Patient ended services with Ena CAMERON on 08/17/20. ASSISTANT PROFESSOR OF MARINE BIOLOGY discussed another HH referral with patient and daughter and both denied need for service. ASSISTANT PROFESSOR OF MARINE BIOLOGY discussed caregivers in the home as well as SNF and [facility]. Both patient and daughter indicated concern for patient's in need of higher level of care as well. ASSISTANT PROFESSOR OF MARINE BIOLOGY provides senior resource guide for patient and to review higher level of care. Patient endorses that he is independent with ADLs but feeling weakness and pain lately and it has been harder to ambulate. ASSISTANT PROFESSOR OF MARINE BIOLOGY provides list of DME providers, patient indicates that he is a and ASSISTANT PROFESSOR OF MARINE BIOLOGY highlight's specific resources. Patient endorses residing at home with and their son with ALS resides in the [facility] home. Daughter endorses that she resides in [place] but has been staying at the home participating as a caregiver for the last two months. ASSISTANT PROFESSOR OF MARINE BIOLOGY asks patient what would be helpful at home and patient holds hand in the shape of gun to his head, ASSISTANT PROFESSOR OF MARINE BIOLOGY asks f/u questions and patient indicates that he is not suicidal. Patient presents as agreeable to higher level of care whether it be caregiver at home or possibly looking into ALFs. Patient endorses he had a PCP appt with Dr. Rocha within a few months ago. Plan: Patient to d/c home when medically clear with oncology f/u, family to look into higher level of care. Abeba Ruano MSW
[2020-08-25 14:58] VITALS: PULSE 82; RESP 12; O2SAT 93
[2020-08-25 15:00] VITALS: BP 161/107; PULSE 82; RESP 11; O2SAT 93
== END 2020-08-25 15:14 | disposition home or self-care (01) ==
PROVIDERS: Emergency Provider Emergency Medicine; PCP Internal Medicine
DX: M54.6 Pain in thoracic spine (principal); M54.5 Low back pain
CPT/HCPCS: 99281

== ENCOUNTER 2020-08-27 06:39 | Observation (INO) | payer OTHER, SELFPAY ==
[2020-08-22 14:29] VITALS: BMI 24.4
[2020-08-27] VITALS (16 sets, daily range): BP systolic 114–170; BP diastolic 47–115; PULSE 80–108; RESP 16–38; TEMP 36.6–37.5; O2SAT 88–98; BMI 24.4
--- NOTE | 2020-08-27 07:10 | ED.FALL ---
HPI - Fall General Chief Complaint: Fall Stated Complaint: pain, can't walk Time Seen by Provider: 08/27/20 07:10 Source: patient and family Mode of arrival: Wheelchair History of Present Illness HPI Narrative: 84-year-old male. Is currently undergoing chemotherapy for lung cancer. This is 3rd visit in the past week for various issues. The 1st visit was for atrial fibrillation. Second visit was for an upper back discomfort. This visit is for generalized weakness however does seem to be more lower extremity than upper. He did have a fall last evening. Sustained no injury from the fall except for abrasion to his left knee. Has been declining at home. Only uses a cane at baseline. Is not on anticoagulation. Related Data Home Medications Medication Instructions Recorded Confirmed atorvastatin 40 mg tablet 40 mg PO DAILY 05/10/20 08/22/20 losartan 50 mg tablet 50 mg PO DAILY 05/10/20 08/22/20 omeprazole 40 mg capsule,delayed 40 mg PO QAM 05/10/20 08/22/20 release cholecalciferol (vitamin D3) 25 1,000 unit DAILY 05/19/20 08/22/20 mcg (1,000 unit) capsule (Vitamin D3) ferrous sulfate 325 mg (65 mg 325 mg PO DAILY 05/19/20 08/22/20 iron) tablet (Iron (ferrous sulfate)) multivitamin 1 tab PO DAILY 05/19/20 08/22/20 omega-3 fatty acids 1,000 mg PO DAILY 05/19/20 08/22/20 metformin 500 mg tablet 500 mg PO DAILY 06/04/20 08/22/20 oxycodone 10 mg tablet,extended 10 mg PO Q6HR PRN 06/04/20 08/22/20 release,12 hr ondansetron 8 mg disintegrating 8 mg PO Q12H PRN 07/20/20 08/22/20 tablet Previous Rx's Medication Instructions Recorded oxycodone 10 mg tablet 10 - 20 mg PO Q6H PRN #100 tab 06/08/20 cefdinir 300 mg capsule 300 mg PO BID 5 Days #10 cap 08/24/20 magnesium 200 mg tablet 200 mg PO DAILY 30 Days #30 tab 08/24/20 metoprolol succinate 25 mg 12.5 mg PO BID 30 Days #30 tab 08/24/20 tablet,extended release 24 hr Allergies Allergy/AdvReac Type Severity Reaction Status Date / Time Penicillins Allergy Unknown Verified 08/27/20 06:46 Sulfa (Sulfonamide Allergy Unknown Verified 08/27/20 06:46 Antibiotics) Review of Systems Constitutional Constitutional: Reports fatigue, Denies fever(s), Reports frequent falls, Denies headache(s), Reports lethargy and Reports weakness Eyes Eyes: Reports system reviewed and no additional complaints, except as documented ENT Ears, Nose, Mouth, and Throat: Denies vertigo, Denies dizziness, Denies headache(s) and Reports disequilibrium Cardiovascular Cardiovascular: Denies chest pain and Denies dyspnea Respiratory Respiratory: Denies dyspnea Gastrointestinal Gastrointestinal: Denies abdominal pain, Denies constipation, Denies diarrhea, Denies nausea and Denies vomiting Genitourinary Genitourinary: Denies dysuria Musculoskeletal Musculoskeletal: Reports back pain, Reports muscle weakness, Denies numbness and Denies tingling Integumentary/Breasts Skin/Breast: Denies lesions and Denies rash Neurologic Neurologic: Denies confusion, Denies vertigo, Denies dizziness, Reports frequent falls, Denies headache(s), Denies numbness, Denies tingling, Denies paresthesias, Reports disequilibrium and Reports weakness Psychiatric Psychiatric: Denies confusion Endocrine Endocrine: Reports fatigue Hematologic/Lymphatic On Anticoagulants: No Allergic/Immunologic Allergic/Immunologic: Reports system reviewed and no additional complaints, except as documented Patient History Medical History Diabetes mellitus Gastroesophageal reflux disease Hyperlipidemia Hypertension Pleural effusion Surgical History H/O right wrist surgery H/O rotator cuff surgery History of carpal tunnel surgery History of carpal tunnel surgery Hx of appendectomy Hx of inguinal hernia surgery Hx of knee surgery Previous back surgery Family History Father Cardiac disease Social History household members: spouse Smoking Status: Former smoker alcohol intake: current Smoking Status: Former smoker alcohol intake frequency: holidays/special occasions only Substance Use Type: opiates and prescription drug Exam Initial Vital Signs Initial Vital Signs: Vital Signs Temperature 99.5 F 08/27/20 06:47 Pulse Rate 99 H 08/27/20 06:47 Respiratory Rate 16 08/27/20 06:47 Pulse Oximetry 94 08/27/20 06:47 Const General: cooperative, comfortable, well developed, well groomed and No acute distress HENMT Head: normal to inspection and normocephalic Eyes General: appearance normal, both eyes and all related structures Neck Neck: normal visual inspection Chest Chest: No tenderness Resp Effort & Inspection: normal respiratory effort Auscultation: clear to auscultation bilaterally Cardio Rate: regular rate Rhythm: abnormal rhythm GI Inspection: normal to inspection and non-distended Back/Spine/Pelvis Cervical Spine: cervical muscular tenderness, No cervical spasm and No cervical spinal tenderness Thoracic/Lumbar Spine: No thoracic spinal tenderness and No lumbar spinal tenderness Skin General: no rashes or lesions noted Neuro General: patient alert, patient awake, patient oriented x3 and moves all extremities Sensory Exam: no sensory deficits noted Other: 1/5 strength bilateral lower extremities equal. 5/5 strength bilateral upper extremities. Extrem General: normal to inspection and capillary refill normal Psych Appearance: grossly normal and well kempt Course Orders Ordered: ED Orders 08/27/20 07:13 Consult to CAPACITOR TESTER - Judicial Administrative Assistant Stat EKG-12 Lead Stat 08/27/20 07:37 Basic Metabolic Panel Stat COVID19 - ADMIT (WHEEL GRINDER swab/PCR) Stat Complete Blood Count AUTO DIFF Stat Magnesium Stat Troponin & CK Cardiac Panel Stat 08/27/20 08:42 Urine Microscopic Stat 08/27/20 09:12 CT head/brain wo con Stat Discontinued Medications Aspirin (Aspirin 81 Mg Chew Tab) 324 mg PO NOW ONE Stop: 08/27/20 09:14 Last Admin: 08/27/20 09:22 Dose: 324 mg Documented by: Vital Signs Vital signs: Vital Signs - 8 hr 08/27/20 06:47 08/27/20 08:37 08/27/20 08:44 Temperature 99.5 F Pulse Rate 99 H 87 81 Respiratory Rate 16 32 H 31 H Blood Pressure 169/72 H Pulse Oximetry 94 91 93 MDM - Fall Medical Records Attestation: I reviewed the patient's medical records. Lab Data Attestation: I reviewed the patient's lab results. Result diagrams: 08/27/20 07:37 08/27/20 07:37 Labs: Lab Results 08/27/20 08/27/20 08/27/20 Range/Units 07:37 07:37 07:37 WBC 8.7 (4.5-11.0) X10^3/uL RBC 3.05 L (4.5-5.9) X10^6/uL Hgb 8.3 L (13.5-17.5) g/dL Hct 25.1 L (41-53) % MCV 82.3 (80-100) fL MCH 27.2 (26-34) PG MCHC 33.0 (30-36) % RDW 20.5 H (11.6-14.8) % Plt Count 145 L (150-400) X10^3/uL Neut % (Auto) 79.6 H (50-75) % Lymph % (Auto) 9.3 L (25-40) % Bowman % (Auto) 10.6 (3-14) % Eos % (Auto) 0.1 L (2-4) % Baso % (Auto) 0.4 (0-2) % Neut # (Auto) 7000 (7006-9970) /uL Lymph # (Auto) 800 L (1916-1372) /uL Bowman # (Auto) 900 (0-900) /uL Eos # (Auto) 0 (0-450) /uL Baso # (Auto) 0 (0-100) /uL RBC Morphology Not Reportable Poikilocytosis 1+ H Anisocytosis 1+ H Sodium 132 L (137-145) mmol/L Potassium 3.4 (3.4-5.1) mmol/L Chloride 98 (98-107) mmol/L Carbon Dioxide 32 (22-32) mmol/L BUN 10 (9-20) mg/dL Creatinine 0.42 L (0.66-1.25) mg/dL Estimated GFR > 60.0 (>60) mL/min BUN/Creatinine Ratio 23.8 H (6-22) Glucose 118 H (80-110) mg/dL Calcium 8.6 (8.4-10.2) mg/dL Magnesium (1.6-2.3) mg/dL Total Creatine Kinase 103 (55-170) U/L CK-MB (CK-2) 2.63 H (<2.37) ng/mL CK-MB (CK-2) Rel Index 2.6 (1.5-5.0) % Troponin I 0.072 H (0.01-0.034) ng/mL Urine RBC (0-5/HPF) Urine WBC (0-5/HPF) Ur Squamous Epith Cells (0-5/HPF) Urine Bacteria (None) Ur Culture Indicated? SARS-CoV-2 (PCR) Negative (Negative) 08/27/20 08/27/20 Range/Units 07:37 08:42 WBC (4.5-11.0) X10^3/uL RBC (4.5-5.9) X10^6/uL Hgb (13.5-17.5) g/dL Hct (41-53) % MCV (80-100) fL MCH (26-34) PG MCHC (30-36) % RDW (11.6-14.8) % Plt Count (150-400) X10^3/uL Neut % (Auto) (50-75) % Lymph % (Auto) (25-40) % Bowman % (Auto) (3-14) % Eos % (Auto) (2-4) % Baso % (Auto) (0-2) % Neut # (Auto) (6465-7332) /uL Lymph # (Auto) (8936-2506) /uL Bowman # (Auto) (0-900) /uL Eos # (Auto) (0-450) /uL Baso # (Auto) (0-100) /uL RBC Morphology Poikilocytosis Anisocytosis Sodium (137-145) mmol/L Potassium (3.4-5.1) mmol/L Chloride (98-107) mmol/L Carbon Dioxide (22-32) mmol/L BUN (9-20) mg/dL Creatinine (0.66-1.25) mg/dL Estimated GFR (>60) mL/min BUN/Creatinine Ratio (6-22) Glucose (80-110) mg/dL Calcium (8.4-10.2) mg/dL Magnesium 1.2 L (1.6-2.3) mg/dL Total Creatine Kinase (55-170) U/L CK-MB (CK-2) (<2.37) ng/mL CK-MB (CK-2) Rel Index (1.5-5.0) % Troponin I (0.01-0.034) ng/mL Urine RBC None seen (0-5/HPF) Urine WBC None seen (0-5/HPF) Ur Squamous Epith Cells 5-10 /hpf H (0-5/HPF) Urine Bacteria None seen (None) Ur Culture Indicated? Cult not indicated SARS-CoV-2 (PCR) (Negative) ECG Data Attestation: I personally reviewed and interpreted this ECG as follows: Interpretation: Sinus rhythm Ventricular rate 87 Frequent PACs Normal QRS Normal axis Nonspecific ST T wave changes MDM Narrative Medical decision making narrative: Patient has had a decline over the past week. Third visit in the past 7 days for multiple symptoms. Today he cannot lift his legs off the bed. His lower back pain is chronic. Has upper back pain is musculoskeletal. Patient does have a troponin that is slightly more elevated today than was a couple days ago. He denies any chest pain. Has frequent PACs on his EKG. No signs of infection. Given his elevated troponin his weakness he does require admission to the hospital for further evaluation and treatment. Discussed the case with Dr. Maxwell the hospitalist on today who accepts the patient for further evaluation and treatment. He did request a head CT for further evaluation of his weakness to evaluate for potential metastasis. I did discuss the admission with the patient and his family at bedside. He expressed understanding and agreement. Discharge Plan Departure Patient Disposition: Admitted as Observation Clinical Impression: Bilateral leg weakness, Small cell lung cancer, Elevated troponin Admit Date/Time: 08/27/20 09:26 Admit Provider: Chino Maxwell
[2020-08-27 07:53] LABS: Add Manual Diff / Slide Review NO; Basophils Absolute Auto 0 /uL (0-100); Basophils Percent Auto 0.4 % (0-2); Eosinophils Absolute Auto 0 /uL (0-450); Eosinophils Percent Auto 0.1 % (2-4); Hematocrit 25.1 % (41-53); Hemoglobin 8.3 g/dL (13.5-17.5); Lymphocytes Absolute Auto 800 /uL (1100-4500); Lymphocytes Percent Auto 9.3 % (25-40); Mean Corpuscular Hemoglobin 27.2 PG (26-34); Mean Corpuscular Volume 82.3 fL (80-100); Monocytes Absolute Auto 900 /uL (0-900); Monocytes Percent Auto 10.6 % (3-14); Neutrophils Absolute Auto 7000 /uL (1500-7000); Neutrophils Percent Auto 79.6 % (50-75); Platelet Count 145 X10^3/uL (150-400); Red Blood Cell Count 3.05 X10^6/uL (4.5-5.9); Red Cell Distribution Width 20.5 % (11.6-14.8); White Blood Cell Count 8.7 X10^3/uL (4.5-11.0)
[2020-08-27 08:02] LABS: BUN Creatinine Ratio 23.8 (6-22); Blood Urea Nitrogen 10 mg/dL (9-20); Calcium 8.6 mg/dL (8.4-10.2); Carbon Dioxide 32 mmol/L (22-32); Chloride 98 mmol/L (98-107); Creatine Kinase 103 U/L (55-170); Estimated Glomerular Filt Rate > 60.0 mL/min (>60); Glucose 118 mg/dL (80-110); HEMOLYSIS < 15 (0-50); Potassium 3.4 mmol/L (3.4-5.1); Sodium 132 mmol/L (137-145)
[2020-08-27 08:09] LABS: Anisocytosis 1+; Poikilocytosis 1+
[2020-08-27 08:14] LABS: Troponin I 0.072 ng/mL (0.01-0.034)
[2020-08-27 08:17] LABS: CKMB % Relative Index 2.6 % (1.5-5.0); Creatine Kinase MB 2.63 ng/mL (<2.37)
[2020-08-27 08:43] LABS: Bacteria Urine None Seen; RBC Urine None Seen (0-5/HPF); WBC Urine None Seen (0-5/HPF)
[2020-08-27 08:55] LABS: Culture Indicated Urine Cult Not Indicated; Squamous Epithelial Cell Urine 5-10 /HPF (0-5/HPF)
[2020-08-27 08:55] LABS: COVID19 - ADMIT (NP swab/PCR) Negative (Negative)
--- NOTE | 2020-08-27 09:12 | DI.CT.S_ITS ---
PROCEDURE: CT HEAD/BRAIN WO CON INDICATIONS: hx of lung CA with LE weakness TECHNIQUE: Noncontrast 4.5 mm thick angled axial sections acquired from the foramen magnum to the vertex, with coronal and sagittal reformats. For radiation dose reduction, the following was used: automated exposure control, adjustment of mA and/or kV according to patient size. COMPARISON: None. FINDINGS: Image quality: Excellent. CSF spaces: Basal cisterns are patent. No extra-axial fluid collections. Ventricles are normal in size and shape. Brain: There is no acute intracranial hemorrhage. The aguilar-white matter junction is maintained, without evidence of acute large territory infarct by CT. No findings cerebral edema, mass effect, or midline shift. Skull and face: Calvarium and visualized facial bones are intact, without suspicious lesions. Sinuses: Visualized sinuses and mastoids are predominantly clear. IMPRESSION: No acute intracranial finding. Please note that CT is of limited sensitivity for intracranial metastatic disease, particularly leptomeningeal disease. If there is continued clinical concern for intracranial metastatic disease, than an MRI brain with and without IV contrast would be recommended. Dictated by: Sancho Oconnell M.D. on 08/27/2020 at 9:45 Approved by: Sancho Oconnell M.D. on 08/27/2020 at 9:47
[2020-08-27 09:17] LABS: Magnesium 1.2 mg/dL (1.6-2.3)
[2020-08-27] MEDS: ASPIRIN 81 MG CHEW TAB 324 MG PO (09:22)
[2020-08-27] MEDS: MAGNESIUM SULFATE 2 GM/50 ML PIGGYBACK IV (10:10)
[2020-08-27] MEDS: SODIUM CHLORIDE 0.9% 1,000 ML 100 ML IV (10:11)
--- NOTE | 2020-08-27 10:23 | PC.NURSE ---
Medication reconciliation completed w/ pt and dtr.
[2020-08-27] MEDS: OXYCODONE IR 5 MG TABLET 15 MG PO (10:27)
--- NOTE | 2020-08-27 11:56 | PC.NURSE ---
Day shift: Pt on unit from ED at approx 1130. Oriented to room and call light. Pt is A&Ox4. C/o back pain of 7/10. Takes PO Oxycodone at home. Was given Oxycodone in ED approx 45 minutes ago. VS WNL. Weakness BLE's. Buttox and coccyx area are free from any skin breakdown. Rt chest post is accessed and IV fluids per APR. His daughter in room for support. Call light in reach. Fell last night at home. High fall risk protocol. Verbal diet order placed per Dr Maxwell. New new orders at this time. Pt agrees to not get OOB w/o help from staff. Bed alarm is on.
[2020-08-27] MEDS: CEFDINIR 300 MG CAPSULE PO ×2 (12:10→20:18)
--- NOTE | 2020-08-27 12:47 | P.HP_ITS ---
History of Present Illness History of Present Illness Date Patient Seen: 08/27/20 Time Patient Seen: 12:47 Chief complaint: pain, can't walk Narrative: The patient is an 84-year-old male with a history of type 2 diabetes, hypertension, hyperlipidemia, gastroesophageal reflux disease, and small cell lung cancer, he is status post 2 cycles chemotherapy. He was recently admitted for afib with RVR and weakness. The patient reports for the he has had continued difficulty with weakness where he was unable to stand. He states his legs just gave out. He had a fall yesterday but did not hit his head. He has had difficulty sleeping. Some mild LE edema, and orthopnea noted. No change to his chronic cough, no fever, chills, abdominal pain, nausea, or vomiting. He has had a couple of loose stools yesterday but none today. No dysuria or urinary frequency. Has chronic low back pain and upper back pain. In the emergency room, the patient was mildly hypertensive but the remainder of his vital signs are unremarkable. Initial laboratory evaluation showed no significant changes compared to his prior discharge labs from a few days ago except for a continued low magnesium at 1.2. His troponin was also slightly elevated at 0.072. Urinalysis was contaminated and not reflux for culture. COVID-19 testing was negative. Chest x-ray was unremarkable. Added on probnp which was >4000. Patient History Medical History Diabetes mellitus Gastroesophageal reflux disease Hyperlipidemia Hypertension Pleural effusion Surgical History H/O right wrist surgery H/O rotator cuff surgery History of carpal tunnel surgery History of carpal tunnel surgery Hx of appendectomy Hx of inguinal hernia surgery Hx of knee surgery Previous back surgery Family & Social History Family History Father Cardiac disease Social History: household members spouse Prior Living Arrangements House Safety & Behavioral: Feels Safe in Current Yes Environment Been Physically Hurt or No Threatened By a Person Suicidal Ideation Description None Suicide Plan Description No Plan Tobacco & Substance use: Smoking Status Former smoker alcohol intake current alcohol intake frequency holiday/special occasion Substance Use Type opiates,prescription drug Meds Home Medications and Allergies Home Medications Medication Instructions Recorded Confirmed Type atorvastatin 40 mg tablet 40 mg PO DAILY 05/10/20 08/27/20 History losartan 50 mg tablet 50 mg PO DAILY 05/10/20 08/27/20 History omeprazole 40 mg capsule,delayed 40 mg PO QAM 05/10/20 08/27/20 History release cholecalciferol (vitamin D3) 25 1,000 unit DAILY 05/19/20 08/27/20 History mcg (1,000 unit) capsule (Vitamin D3) ferrous sulfate 325 mg (65 mg 325 mg PO DAILY 05/19/20 08/27/20 History iron) tablet (Iron (ferrous sulfate)) multivitamin 1 tab PO DAILY 05/19/20 08/27/20 History omega-3 fatty acids 1,000 mg PO DAILY 05/19/20 08/27/20 History metformin 500 mg tablet 500 mg PO DAILY 06/04/20 08/27/20 History oxycodone 10 mg tablet 10 - 20 mg PO Q6H PRN #100 tab 06/08/20 08/27/20 Rx ondansetron 8 mg disintegrating 8 mg PO Q12H PRN 07/20/20 08/27/20 History tablet cefdinir 300 mg capsule 300 mg PO BID 5 Days #10 cap 08/24/20 08/27/20 Rx magnesium 200 mg tablet 200 mg PO DAILY 30 Days #30 tab 08/24/20 08/27/20 Rx metoprolol succinate 25 mg 12.5 mg PO BID 30 Days #30 tab 08/24/20 08/27/20 Rx tablet,extended release 24 hr olanzapine 10 mg tablet 5 mg PO Q12HR PRN 08/27/20 08/27/20 History potassium chloride 10 mEq 10 meq PO BID 08/27/20 08/27/20 History tablet,extended release Allergies Allergy/AdvReac Type Severity Reaction Status Date / Time Penicillins Allergy Unknown Verified 08/27/20 06:46 Sulfa (Sulfonamide Allergy Unknown Verified 08/27/20 06:46 Antibiotics) Review of Systems Review of Systems Narrative: All other systems reviewed with the patient and are negative unless otherwise stated. Exam Vital Signs (past 8 hours): - 08/27/20 06:47 08/27/20 08:37 08/27/20 08:44 Temperature 99.5 F Pulse Rate 99 H 87 81 Respiratory Rate 16 32 H 31 H Blood Pressure 169/72 H Pulse Oximetry 94 91 93 08/27/20 09:00 08/27/20 09:37 08/27/20 09:38 Temperature Pulse Rate 82 80 85 Respiratory Rate 20 20 20 Blood Pressure 170/77 H Pulse Oximetry 94 96 98 08/27/20 10:00 08/27/20 10:30 08/27/20 11:00 Temperature Pulse Rate 108 H 107 H 90 Respiratory Rate 33 H 38 H 24 Blood Pressure 152/115 H 114/86 154/70 H Pulse Oximetry 94 92 88 L 08/27/20 11:41 Temperature 97.8 F Pulse Rate 86 Respiratory Rate 16 Blood Pressure 141/83 H Pulse Oximetry 98 Oxygen Delivery Method Room Air Narrative Exam Narrative: Gen: Elderly male sitting upright in hospital bed, no acute distress HEENT: Normocephalic atraumatic, extraocular muscles are intact, oropharynx is clear, there is no exudates noted Neck: Supple without adenopathy, no palpable masses, no thyromegaly Lungs: diminshed breath sounds bilateral lung bases, no wheezing, rhonchi, or obvious rales. Cardiac exam: RRR with normal rate. no murmur. Abdomen: Soft, NT, ND Neuro: Cranial nerves 2-12 are intact, strength is symmetric and equal, sensations grossly intact, gait is not assessed Extremities: 1+ pretibial, no effusions in joints. Psych: Patient is awake alert and appropriate, his mood and affect is normal, he has appropriate thought process and content, Objective ECG Impression: sinus tachycardia without evidence of acute ischemia, occasional PA C. Labs Result Diagrams: 08/27/20 07:37 08/27/20 07:37 Labs: Laboratory Results - last 24 hr 08/27/20 08/27/20 08/27/20 07:37 07:37 07:37 WBC 8.7 RBC 3.05 L Hgb 8.3 L Hct 25.1 L MCV 82.3 MCH 27.2 MCHC 33.0 RDW 20.5 H Plt Count 145 L Neut % (Auto) 79.6 H Lymph % (Auto) 9.3 L [place] % (Auto) 10.6 Eos % (Auto) 0.1 L Baso % (Auto) 0.4 Neut # (Auto) 7000 Lymph # (Auto) 800 L [place] # (Auto) 900 Eos # (Auto) 0 Baso # (Auto) 0 RBC Morphology Not Reportable Poikilocytosis 1+ H Anisocytosis 1+ H Sodium 132 L Potassium 3.4 Chloride 98 Carbon Dioxide 32 BUN 10 Creatinine 0.42 L Estimated GFR > 60.0 BUN/Creatinine Ratio 23.8 H Glucose 118 H Calcium 8.6 Magnesium Total Creatine Kinase 103 CK-MB (CK-2) 2.63 H CK-MB (CK-2) Rel Index 2.6 Troponin I 0.072 H Urine RBC Urine WBC Ur Squamous Epith Cells Urine Bacteria Ur Culture Indicated? SARS-CoV-2 (PCR) Negative 08/27/20 08/27/20 07:37 08:42 WBC RBC Hgb Hct MCV MCH MCHC RDW Plt Count Neut % (Auto) Lymph % (Auto) [place] % (Auto) Eos % (Auto) Baso % (Auto) Neut # (Auto) Lymph # (Auto) [place] # (Auto) Eos # (Auto) Baso # (Auto) RBC Morphology Poikilocytosis Anisocytosis Sodium Potassium Chloride Carbon Dioxide BUN Creatinine Estimated GFR BUN/Creatinine Ratio Glucose Calcium Magnesium 1.2 L Total Creatine Kinase CK-MB (CK-2) CK-MB (CK-2) Rel Index Troponin I Urine RBC None seen Urine WBC None seen Ur Squamous Epith Cells 5-10 /hpf H Urine Bacteria None seen Ur Culture Indicated? Cult not indicated SARS-CoV-2 (PCR) Assessment & Plan Assessment & Plan narrative: The patient is an 84-year-old male with a history of type 2 diabetes, hypertension, hyperlipidemia, gastroesophageal reflux disease, and small cell lung cancer, he is status post 2 cycles chemotherapy. He was recently admitted for afib with RVR and weakness. Returned to the ER with inability to ambulate due to weakness. Now with evidence of heart failure, which would be a new diagnosis for him. 1. Presumed acute failure, EF unknown but probably diastolic. - will rule out LE DVT with ultrasound. Start diuresis with 20 mg today, re assess based on response. - TTE ordered. Unable to obtain on last admission due to limited availability and no evidence of heart failure at that time as well as presumed underlying cause (hypomagnesemia and possible pneumonia, hypotension). - in recent setting of afib with RVR, suspect diastolic dysfunction. Patient denies palpitations but did previously. May still be in uncontrolled afib after recent discharge. 2. paroxysmal atrial fibrillation - recently admitted for afib. His EKG is sinus tachycardia. - CHADS-VASC is elevated, consider starting AC vs deferral to PCP. May be in the setting of hypomagnesemia. Continue beta elda. 3. 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 Though has now been delayed. - continue home pain control, but seems suboptimal at home. Will trial fentanyl patch as 12 mg to see if improvement. Narcan ordered if needed. 4. Hypertension -continue home betablocker, and will add diuretic as noted above. 5. GERD -continue PPI 6. Type 2 diabetes -metformin on hold -will start sliding scale insulin 7. Chronic back pain -will continue the patient's usual home pain med regimen, add fentanyl as noted above. Consider MRI imaging if no improvement in LE weakness although prior CT without evidence of spinal involvement from malignancy. patient without bowel or bladder dysfunction currently. 8. Hyperlipidemia -continue atorvastatin 9.hypomagenesemia, acute, present on admission - mg level of 1.2 possibly associated with patient's weakness and likely associated with his prior afib with RVR. Given 2g today, continue to follow. Continue oral repletion as well. 10. Hypokalemia, acute K 3.4, will replete. 11. Elevated troponin - patient with troponin values to 0.072 today on admission. Patient with no chest pain and EKG without ischemic changes. - continue to follow until downtrending. - possibly elevated in setting of heart failure and volume overload. - TTE ordered as noted above. 12. Acute on chronic anemia, normocytic - Hg now 8.3, stable from last admission. baseline appears to be around 9-10 as an outpatient. No signs or symptoms of active bleeding. Will continue to follow. 13. presumed pnuemonia from prior admission - continue cefdinir prescribed from previous admission for an additional 2 more days as previously prescribed. The patient reports he is DNR DNI, his Delfina is his surrogate decision maker Dispo: admit as inpatient given apparent new diagnosis of heart failure. Will need PT/OT evaluations. COVID-19 COVID-19 status: Negative Quality MIPS - Admit I confirm the patient?s Advance Care Plan is present, Code status is documented, Surrogate decision maker is in patient?s record [If Yes, STOP here]: Yes
--- NOTE | 2020-08-27 13:08 | PC.NURSE ---
Day shift: Pt reported back pain of 7/10 on admit to AC unit. MD ordered Oxycodone and this was offered to Pt at approx 1300 and Pt did not want. Informed Pt that this med is NEEDED and that he neeeds to let RN know when he wants it. He was agreeable to this. Eating Salad and toelrating fluids at this time. Denies any nausea or pain. Denies any chest pain. Tele placed per protocol. Call light in reach. Dr Maxwell has talked with Pt and his Daughter CECE.
--- NOTE | 2020-08-27 13:13 | DI.ECHO.S_ITS ---
[facility] +---------+ Hospital +---------+ : : [address] : : : : [id number] : : : : Phone: [phone]+ Echocardiogram Report + + :Name: KERVIN WEINSTEIN Study Date: 08/28/2020 Height: 71 in : :[facility] ReadingLocation: Weight: 175 lb : : Gender: Male BSA: 2.0 m2 : :: 1935 Age: 84 yrs BP: 125/47 mmHg: :Reason For Study: POSSIBLE DIASTOLIC HEART FAILURE, AFIB : :Ordering Physician: MAHAD, : :DEVYN DE LOS SANTOS Performed By: Jessy Walker : :Referring: DEVYN TOBIN : + + Interpretation Summary 1) Normal left ventricular size with low normal systolic function (EF 50-55%). 2) Normal right ventricular size and function. 3) The left atrium is severely dilated based on volume index calculation. 4) No significant valvular abnormalities. 5) No prior Echo available for comparison. Procedure: A two-dimensional transthoracic echocardiogram with color flow and Doppler was performed. There is no prior echocardiogram noted for this patient. The heart rate ranged between 92-103 bpm during the study. Left Ventricle: The left ventricle is normal in size. Left ventricular wall thickness is mildly increased. The ejection fraction is estimated to be 50- 55%. There are no focal wall motion abnormalities. Right Ventricle: The right ventricle is normal in size and function. The right ventricular systolic function is normal. Atria: The left atrium is severely dilated. The right atrium is borderline dilated. There is no Doppler evidence for an interatrial shunt. Mitral Valve: The mitral valve leaflets appear mildly thickened, but open well. There is trace mitral regurgitation. Aortic Valve: There is moderate aortic valve sclerosis. The aortic valve opens well. The aortic valve is trileaflet. There is no aortic valve stenosis. There is mild aortic regurgitation. Tricuspid Valve: The tricuspid valve is normal in structure and function. There is trace tricuspid regurgitation. Pulmonary artery pressures cannot be estimated because of the lack of a measurable TR jet velocity but the IVC suggests a CVP of around 3 mmHg. Pulmonic Valve: The pulmonic valve leaflets are thin and pliable; valve motion is normal. There is a trace or physiologic amount of pulmonic regurgitation. Great Vessels: The aortic root is normal size. The ascending aorta could not be visualized. The IVC is of normal diameter and collapses greater than 50% with a sniff. This suggests a low right atrial pressure of 3 mm Hg. Pericardium/ Pleura There is no pericardial effusion. There is no pleural effusion. MMode/2D Measurements & Calculations LVIDd: 4.8 cm Ao root diam: 2.4 cm LVIDs: 2.9 cm FS: 38.8 % IVSd: 1.3 cm LVPWd: 0.96 cm LV jacobs. diameter/BSA (cm/m^2): 2.4 LV sys. diameter/BSA (cm/m^2): 1.5 LA A2 area: 29.0 cm2 RA long axis: 5.4 cm LA A4 area: 25.4 cm2 RA area: 20.6 cm2 LA length (vol): 6.3 cm RA vol: 66.1 ml LA vol: 98.9 ml RA : 33.2 ml/m2 LA vol index: 49.6 ml/m2 IVC diam: 1.5 cm RVD1 (basal): 3.6 cm TAPSE: 2.2 cm Doppler Measurements & Calculations Ao V2 max: 116.6 cm/sec LVOT Max Mickey: 104.2 cm/sec Ao V2 mean: 84.6 cm/sec LV V1 max P.3 mmHg Ao max P.4 mmHg LV V1 VTI: 19.6 cm Ao mean P.2 mmHg sev ratio: 0.86 Ao V2 VTI: 22.7 cm MV E max mickey: 78.2 cm/sec PA V2 max: 105.9 cm/sec MV A max mickey: 91.5 cm/sec PA V2 mean: 73.2 cm/sec MV E/A: 0.86 PA mean P.5 mmHg Med Peak E' Mickey: 8.5 cm/sec PA pr(Accel): 39.6 mmHg E/E' med: 9.2 Lat Peak E' Mickey: 8.6 cm/sec E/E' lat: 9.1 E/e' average: 9.2 MV dec time: 0.18 sec Reading Physician:01:48 PM
[2020-08-27 13:36] LABS: NT-proBNP (BNP-Adult 18+) 4120 pg/mL (<450)
--- NOTE | 2020-08-27 14:35 | DI.US.S_ITS ---
PROCEDURE: US PERIPH VENOUS LOW EXTREM BI INDICATIONS: LEG WEAKNESS TECHNIQUE: Real-time imaging, as well as color and pulse Doppler interrogation, were performed of the deep veins of both legs from the inguinal ligament to the popliteal fossa. COMPARISON: None. FINDINGS: Right: The common femoral, femoral and popliteal veins are normally compressible, and free of intraluminal thrombus. Color and pulse Doppler demonstrate normal phasic intravascular flow. There is normal augmentation response to distal compression maneuver. Left: The common femoral, femoral and popliteal veins are normally compressible, and free of intraluminal thrombus. Color and pulse Doppler demonstrate normal phasic intravascular flow. There is normal augmentation response to distal compression maneuver. IMPRESSION: No sonographic evidence of DVT. Dictated by: Sancho Oconnell M.D. on 08/27/2020 at 14:52 Approved by: Sancho Oconnell M.D. on 08/27/2020 at 14:52
[2020-08-27] MEDS: FUROSEMIDE 20 MG/2 ML VIAL IV (14:43)
[2020-08-27] MEDS: fentaNYL 12 MCG/PATCH TOP (15:07)
[2020-08-27] MEDS: METOPROLOL IR 25 MG TABLET 12.5 MG PO (15:39)
--- NOTE | 2020-08-27 15:44 | CM.IDA ---
Initial DCP Assessment Note Pt is an 84 yo male, resident of [place], arrives w/weakness and inability to walk, status post two cycles of chemotherapy for small cell lung cancer that has metastasized to include the lung mediastinum and retroperitoneal liver and bone (according to Dr Maxwell), managed by oncologist Dr Mosquera. PCP: Nico Rocha Payer: [facility] Reviewed chart, patient just arrived to acute care floor today and getting situated in room... placed call to spouse Delfina, spoke w/dtr CECE as well. According to spouse, things have been challenging at home, dtr CECE has been visiting from [place] x2 months to assist patient, spouse and her younger brother who has ALS and lives in the [facility] [place] the property. Spouse states she cannot afford in home caregivers, but does appreciate the visits from joo . Spouse unsure about applying for chcf care/SUSAN or what it would entail Spoke then w/dtr CECE, with spouse's permission; DJ explains she has been attempting to coordinate care for all the members of the house, which has been difficult while assisting w/care, errands and chores. DJ has not researched in home cgs, SUSAN, or USP options. Dtr feels patient/spouse need a chcf care plan but unsure where to begin. Patient/spouse would like to remain in their home. Suggested mtg tomorrow at bedside and family appreciative. PT/OT evals are pending, these evals will help define patient's DC needs; likely would benefit from SNF stay- which Opt insurance might auth if patient has PT/OT skilled needs. Will follow closely and meet w/patient/family tomorrow to review DCP options. SAUNDRA Turner Discharge Planning/Care Management CM Discharge Assessment Start: 08/27/20 15:41 Freq: Status: Active Protocol: Document 08/27/20 15:42 RADHA (Rec: 08/27/20 15:44 RADHA [id number]) Discharge Planning Assessment Assigned Flume Tender SAUNDRA Quiroga DPOA/Assigned Designee Name Delfina Valenzuela, spouse Contact Information [phone] Advance Directives? No History Provided By Family Member,Significant Other,Medical Record Prior Living Arrangements House Household Members spouse,children Type of transporation used prior to Relies on Others admit Independent with ADL's No Is patient alert and oriented? Yes Patient/Family Preference Home with Home Health Barriers to Discharge Yes Comment Weakness, lives w/elderly spouse, dtr from [place] (needs to return) and son w/ ALS Transportation Arrangement TBD Review Status In Process
[2020-08-27 16:45] LABS: Troponin I 0.062 ng/mL (0.01-0.034)
[2020-08-27] MEDS: INSULIN LISPRO 100 UNIT/ML 3ML VIAL SUBCUT (16:49)
[2020-08-27] MEDS: METOPROLOL ER 25 MG TABLET 12.5 MG PO (20:17)
[2020-08-27] MEDS: POTASSIUM CHLORIDE 10 MEQ TAB PO (20:17)
[2020-08-27] MEDS: OXYCODONE IR 10 MG TABLET PO (20:22)
[2020-08-27] MEDS: SODIUM CHLORIDE 0.9% FLUSH 10 ML IV (20:23)
[2020-08-28] VITALS (11 sets, daily range): BP systolic 130–147; BP diastolic 64–71; PULSE 71–96; RESP 16–20; TEMP 36.2–37.3; O2SAT 92–97
[2020-08-28] MEDS: ACETAMINOPHEN 325 MG TABLET 650 MG PO (02:18)
[2020-08-28 06:55] LABS: Add Manual Diff / Slide Review NO; Basophils Absolute Auto 0 /uL (0-100); Basophils Percent Auto 0.3 % (0-2); Eosinophils Absolute Auto 0 /uL (0-450); Eosinophils Percent Auto 0.2 % (2-4); Hematocrit 25.3 % (41-53); Hemoglobin 8.4 g/dL (13.5-17.5); Lymphocytes Absolute Auto 1000 /uL (1100-4500); Mean Corpuscular HGB Conc 33.1 % (30-36); Mean Corpuscular Hemoglobin 27.3 PG (26-34); Mean Corpuscular Volume 82.3 fL (80-100); Monocytes Absolute Auto 1100 /uL (0-900); Monocytes Percent Auto 13.2 % (3-14); Neutrophils Absolute Auto 6000 /uL (1500-7000); Neutrophils Percent Auto 74.3 % (50-75); Platelet Count 140 X10^3/uL (150-400); Red Blood Cell Count 3.07 X10^6/uL (4.5-5.9); Red Cell Distribution Width 20.6 % (11.6-14.8); White Blood Cell Count 8.1 X10^3/uL (4.5-11.0)
[2020-08-28 07:03] LABS: Alanine Aminotransferase 17 IU/L (<50); Albumin 2.7 g/dL (3.5-5.0); Albumin Globulin Ratio 0.9 (1.0-2.8); Alkaline Phosphatase 186 U/L (38-126); Aspartate Aminotransferase 72 IU/L (17-59); BUN Creatinine Ratio 26.2 (6-22); Bilirubin Total 0.7 mg/dL (0.2-1.3); Blood Urea Nitrogen 11 mg/dL (9-20); Calcium 8.3 mg/dL (8.4-10.2); Carbon Dioxide 31 mmol/L (22-32); Chloride 96 mmol/L (98-107); Estimated Glomerular Filt Rate > 60.0 mL/min (>60); Globulin 2.9 g/dL (1.7-4.1); Glucose 102 mg/dL (80-110); HEMOLYSIS < 15 (0-50); Magnesium 1.4 mg/dL (1.6-2.3); Potassium 3.2 mmol/L (3.4-5.1); Sodium 133 mmol/L (137-145); Total Protein 5.6 g/dL (6.3-8.2)
[2020-08-28 07:27] LABS: Anisocytosis 1+; Ovalocytes 1+
--- NOTE | 2020-08-28 09:48 | DI.MRI.S_ITS ---
PROCEDURE: MR LUMBAR SPINE WO CON INDICATIONS: history cancer, sudden b/l leg weakness TECHNIQUE: Noncontrast sagittal T1 spin echo and T2 fast echo, sagittal STIR, axial T1 and T2 fast spin echo through the lumbar spine. In cases with scoliosis, additional coronal T2 fast spin echo may be performed. COMPARISON: [facility], CT, CT CHEST ABD PEL W CON, 08/22/2020, 12:20. FINDINGS: Image quality: Excellent. Alignment and Curvature: There is normal bony alignment. Bone Marrow: Bone marrow is diffusely decreased in T1 signal and somewhat mottled without focal lesion. No paraspinal mass lesion. Spinal Cord: Conus medullaris terminates at the L1 level. Visualized cord demonstrates normal signal and size. Paraspinous Soft Tissues: No paravertebral masses. At the disc levels, there is a circumferential disc bulge at L2-3 resulting in moderate central stenosis. Hypertrophic facet joints at L4-5 resulting in grade 1 anterior spondylolisthesis and moderate central stenosis as well. IMPRESSION: 1. Diffuse marrow replacement without focal mass lesion involves the lumbosacral spine and visualized pelvis. This could reflect diffuse metastatic involvement or anemia with red marrow conversion. Consider follow-up contrast-enhanced MR or bone scan 2. Multilevel degenerative disc disease and arthropathy results in moderate central stenosis at L2-3 and L4-5. Dictated by: Jeanmarie Gutierres M.D. on 08/28/2020 at 13:26 Approved by: Jeanmarie Gutierres M.D. on 08/28/2020 at 13:33
--- NOTE | 2020-08-28 10:10 | PT.IIE ---
Current Diagnoses Acute diastolic (congestive) heart failure (08/27/20) Medical History (Last Reviewed 08/27/20 @ 12:51 by Chino Maxwell DO) Diabetes mellitus Gastroesophageal reflux disease Hyperlipidemia Hypertension Pleural effusion Physical Therapy Inpatient Evaluation/Re-Eval M1 PT/OT-IP Prior Functional Status Start: 08/28/20 12:39 Freq: NEEDED Status: Active Protocol: Document 08/28/20 10:10 AB (Rec: 08/28/20 12:50 AB [id number]) Medical Review Prior Functional Status Medical History Reviewed Yes Communication able to make needs known; [place] Mobility and Gait pt stated that he has been getting weaker since 4 months ago when he had the lung CA and chemo but stated that he was still able to ambulate without AD until ~ 4-5 days ago wherein he was not able to stand Social History Household Members spouse Living Arrangements House Number of Floors (Floors) One Floor Number of Stairs To Enter/Railing? 1 step to enter Home Environment High Toilet,Walk in Shower,Tub /Shower Home Equipment Shower Seat without Backrest, Hand Held Shower Additional Social History Comment pt stated that his spouse will not be able to assist him due to her own medical issues. stated that her daughter from out of town is staying with them at this time to assist him. pt stated that her daughter ordered a FWW for him but is not sure. M2 PT-IP Current Condition Start: 08/28/20 12:39 Freq: NEEDED Status: Active Protocol: Document 08/28/20 10:10 AB (Rec: 08/28/20 12:50 AB [email or web address]) Physical Therapy Current Condition Current Condition Evaluation Date 08/28/20 Treatment Diagnosis sepsis; lung CA with mets; difficulty in walking Onset Date 08/27/20 M3 PT-IP Subjective Start: 08/28/20 12:39 Freq: NEEDED Status: Active Protocol: Document 08/28/20 10:10 AB (Rec: 08/28/20 12:50 AB [email or web address]) Subjective Physical Therapy Visit Type Type Initial Evaluation Visit Start Time 10:10 Visit Stop Time 10:42 Total Visit Minutes 32 Number of MINT MACHINE OPERATOR Visits 0 Physical Therapy Visit Comments Patient Comments pt agreed to get out of the bed Therapy Pain Assessment Pain When Pain Assessed At Rest Pain Present Pain Present Pain Reported Location Back Intensity 8 Pain Management Techniques Distraction,Re-positioning, Timing of Activity with Medications Generalized Intensity 8 Scale Used Numeric (0 - 10) Pain Management Techniques Distraction,Modification of Treatment,Re-positioning, Timing of Activity with Medications M4 PT-IP Mobility and Gait Start: 08/28/20 12:39 Freq: NEEDED Status: Active Protocol: Document 08/28/20 10:10 AB (Rec: 08/28/20 12:50 AB [email or web address]) PT-Bed Mobility Assessment Supine to Sit Supine to Sit Maximum Assistance,1 Person Assistance,2 Person Assistance Sit to Supine Sit to Supine Maximum Assistance Scooting Scooting to Edge of Bed Maximum Assistance PT-Transfer Assessment Sit to and From Stand Sit to and from Stand Maximum Assistance,1 Person Assistance,2 Person Assistance ,Use of Upper Extremities Equipment Transfer Assistive Device Gait Belt,Front Wheeled Walker Orthotic/Prosthetic Devices or Brace: No Transfers Transfer Destination Chair Transfer Technique Stand Step Pivot Transfer Ability Level of Assist Maximum Assistance,1 Person Assistance,2 Person Assistance ,Use of Upper Extremities Comments Mobility Comments pt completed supine to sit max A x 1-2 and max cues. pt required min A for sitting balance on EOB. (+) SOB but O2 sat at 94%. pt completed sit to stand max Ax 1-2 and max cues and completed step sransfer using FWW max A x 1-2 and max cues. pt completed sit to stand from chair max A x 1-2 and max cues and ambulated ~ 10 ft max A with chair follow. pt sat on chair go rest. nurse came in and stated that pt has to go back to the bed. pt completed sit to stand from chair max A and cues and complated step transfer to bed max A x 1-2 and max cues. completed sit to supine max A and cues. positioned pt in bed. Left pt with nurse in room. Gait Assessment Gait Gait Assistance Required: Maximum Assistance,1 Person Assist Distance (Feet) 10 Able to Maintain Weight Bearing Status Yes During Gait Assistive Devices Assistive Device Gait Belt,Front Wheeled Walker Gait Deviations General Gait Pattern Decreased Stride Length, Decreased Feet Clearance,Step- to Gait Factors Limiting Gait Function Factors Limiting Gait Function Decreased Activity Tolerance, Decreased Strength,Limited Range of Motion,Pain,Poor Balance,Poor Safety Awareness Comments Gait Comments pls refer to mobility section for details PT-Balance Assessment Sitting Balance and Reactions Static Sitting Balance Ability Fair Dynamic Sitting Balance Ability Fair Standing Balance and Reactions Static Standing Balance Ability Poor Dynamic Standing Balance Ability Poor Device Used FWW M5 PT-IP Objective Assessments Start: 08/28/20 12:39 Freq: NEEDED Status: Active Protocol: Document 08/28/20 10:10 AB (Rec: 08/28/20 12:50 AB [email or web address]) Orientation Orientation/Cognition Level of Alertness Alert Orientation Name,Place,Situation Language Function Ability Hard of Hearing Safety Awareness Decreased Safety Awareness Gross Range of Motion Lower Extremity ROM Assessment Within Functional Limits Strength Lower Extremity Strength Assessment Bilaterally Impaired Hip 3-/5 Knee 3+/5 Sensation Assessment Sensation Gross Sensation WNL Muscle Tone Muscle Tone WNL Yes M6 PT-IP Treatment Start: 08/28/20 12:39 Freq: NEEDED Status: Active Protocol: Document 08/28/20 10:10 AB (Rec: 08/28/20 12:50 AB [email or web address]) Physical Therapy Treatment Education Education Provided Safety M7 PT-IP Assessment and Plan Start: 08/28/20 12:39 Freq: NEEDED Status: Active Protocol: Document 08/28/20 10:10 AB (Rec: 08/28/20 12:50 AB [email or web address]) PT Summary Assessment and Plan Potential Rehabilitation Potential Good Status of Condition at Evaluation Evolving Summary Impairments Pain,ROM,Strength,Balance, Coordination,Sensation,Tone, Cognition,Bed Mobility, Transfers,Gait,Activity Tolerance Assessment Summary pt requiring max A x 1-2 with mobility and has decrease activity tolerance with (+) SOB but O2 sat at 94%. pt will require SNF rehab at this time. will continue to assess progress. Goals Bed Mobility Goal Standby Assistance Transfer Goal Standby Assistance,Front Wheeled Walker Gait Goal Standby Assistance,Front Wheel Walker Gait Distance 100 Other Goals improve ambulation using FWW 150 ft SBA up/down 1 step using FWW SBA Days to Meet Goals 10 Frequency of Treatment Frequency Of Treatment Once a Day Treatment Plan Physical Therapy Treatment Plan Bed Mobility Training,Transfer Training,Gait Training, Therapeutic Exercise,Balance Retraining,Discharge Planning, Neuromuscular Re-ed, Coordination Retraining,Manual Therapy Recommendations To Nursing Amount of Assist Needed 2 Person Assist Discharge Recommendations PT Discharge Recommendations SNF Rehab Transportation Needs at Discharge Wheelchair/Cabulance
[2020-08-28] MEDS: ENOXAPARIN 40 MG/0.4 ML SYRINGE SUBCUT (10:22)
[2020-08-28] MEDS: METOPROLOL ER 25 MG TABLET 12.5 MG PO ×2 (10:23→21:51)
[2020-08-28] MEDS: LOSARTAN 50 MG TABLET PO (10:23)
[2020-08-28] MEDS: ATORVASTATIN 20 MG TABLET 40 MG PO (10:24)
[2020-08-28] MEDS: OXYCODONE IR 10 MG TABLET PO (10:24)
[2020-08-28] MEDS: FERROUS SULFATE 325 MG TABLET PO (10:24)
[2020-08-28] MEDS: SODIUM CHLORIDE 0.9% FLUSH 10 ML IV (10:25)
[2020-08-28] MEDS: CEFDINIR 300 MG CAPSULE PO ×2 (10:25→21:56)
[2020-08-28] MEDS: MAGNESIUM SULFATE 4 GM/100 ML PIGGYBACK IV (11:43)
[2020-08-28] MEDS: FUROSEMIDE 20 MG/2 ML VIAL 40 MG IV (11:43)
[2020-08-28] MEDS: LORazepam 2 MG/ML INJ 1 MG IV (12:37)
[2020-08-28 15:02] LABS: BUN Creatinine Ratio 32.5 (6-22); Blood Urea Nitrogen 13 mg/dL (9-20); Calcium 8.4 mg/dL (8.4-10.2); Carbon Dioxide 34 mmol/L (22-32); Chloride 95 mmol/L (98-107); Estimated Glomerular Filt Rate > 60.0 mL/min (>60); Glucose 171 mg/dL (80-110); HEMOLYSIS < 15 (0-50); Sodium 132 mmol/L (137-145)
--- NOTE | 2020-08-28 15:32 | P.PN_ITS ---
Subjective Subjective Date Patient Seen: 08/28/20 Time Patient Seen: 08:00 Interval history: He states he feels like his legs don't work. He feels very weak. Otherwise he has no complaints. He does have some lumbar back pain. No incontinence. No decreased sensation. Exam Vital Signs (past 8 hours): - 08/28/20 10:23 08/28/20 11:05 Temperature 97.9 F Pulse Rate 96 H 75 Respiratory Rate 18 Blood Pressure 133/67 135/67 Pulse Oximetry 94 Oxygen Delivery Method Room Air Oxygen Flow Rate 0 Narrative Exam Narrative: Gen: no acute distress Lungs: diminshed breath sounds bilateral lung bases, no wheezing, rhonchi, or obvious rales. Cardiac exam: RRR with no murmur Abdomen: Soft, not tender nor distended, normal bowel sounds Neuro: Cranial nerves 2-12 are intact, strength is symmetric and equal, sensations grossly intact, gait is not assessed Extremities: 1+ edema in legs, no effusions in joints. Psych: Patient is awake alert and appropriate, his mood and affect is normal, he has appropriate thought process and content, Objective Labs Result Diagrams: 08/28/20 06:35 08/28/20 14:31 Labs: Laboratory Results - last 24 hr 08/27/20 08/28/20 08/28/20 15:30 06:35 06:35 WBC 8.1 RBC 3.07 L Hgb 8.4 L Hct 25.3 L MCV 82.3 MCH 27.3 MCHC 33.1 RDW 20.6 H Plt Count 140 L Neut % (Auto) 74.3 Lymph % (Auto) 12.0 L [place] % (Auto) 13.2 Eos % (Auto) 0.2 L Baso % (Auto) 0.3 Neut # (Auto) 6000 Lymph # (Auto) 1000 L [place] # (Auto) 1100 H Eos # (Auto) 0 Baso # (Auto) 0 RBC Morphology See below Anisocytosis 1+ H Ovalocytes 1+ H Sodium 133 L Potassium 3.2 L Chloride 96 L Carbon Dioxide 31 BUN 11 Creatinine 0.42 L Estimated GFR > 60.0 BUN/Creatinine Ratio 26.2 H Glucose 102 Calcium 8.3 L Magnesium 1.4 L Total Bilirubin 0.7 AST 72 H ALT 17 Alkaline Phosphatase 186 H D Troponin I 0.062 H Total Protein 5.6 L Albumin 2.7 L Globulin 2.9 Albumin/Globulin Ratio 0.9 L 08/28/20 08/28/20 14:31 14:31 WBC RBC Hgb Hct MCV MCH MCHC RDW Plt Count Neut % (Auto) Lymph % (Auto) [place] % (Auto) Eos % (Auto) Baso % (Auto) Neut # (Auto) Lymph # (Auto) [place] # (Auto) Eos # (Auto) Baso # (Auto) RBC Morphology Anisocytosis Ovalocytes Sodium 132 L Potassium 3.0 L Chloride 95 L Carbon Dioxide 34 H BUN 13 Creatinine 0.40 L Estimated GFR > 60.0 BUN/Creatinine Ratio 32.5 H Glucose 171 H Calcium 8.4 Magnesium 2.0 Total Bilirubin AST ALT Alkaline Phosphatase Troponin I Total Protein Albumin Globulin Albumin/Globulin Ratio PFSH Medical History Diabetes mellitus Gastroesophageal reflux disease Hyperlipidemia Hypertension Pleural effusion Surgical History H/O right wrist surgery H/O rotator cuff surgery History of carpal tunnel surgery History of carpal tunnel surgery Hx of appendectomy Hx of inguinal hernia surgery Hx of knee surgery Previous back surgery Family History Father Cardiac disease Social History household members: spouse Smoking Status: Former smoker alcohol intake: current Assessment & Plan Assessment & Plan narrative: 84M with PMH of type 2 diabetes, hypertension, hyperlipidemia, gastroesophageal reflux disease, and small cell lung cancer, he is status post 2 cycles chemotherapy. He was recently admitted for afib with RVR and weakness. Returned to the ER with inability to ambulate due to weakness. Now with evidence of heart failure, which would be a new diagnosis for him. 1. Presumed acute congestive heart failure failure, preserved EF. - ruled out LE DVT with ultrasound. Start diuresis with lasix on admission - TTE ordered. EF preserved at 50-55%, dilated left atrium. 2. paroxysmal atrial fibrillation - recently admitted for afib. His EKG is sinus tachycardia. - CHADS-VASC is elevated, consider starting AC vs deferral to PCP. May be in the setting of hypomagnesemia. Continue beta elda. 3. 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 Though has now been delayed. - continue home pain control, but seems suboptimal at home. Will trial fentanyl patch as 12 mg to see if improvement. Narcan ordered if needed. 4. Hypertension -continue home betablocker, and will add diuretic as noted above. 5. GERD -continue PPI 6. Type 2 diabetes -metformin on hold -will start sliding scale insulin 7. Chronic back pain -will continue the patient's usual home pain med regimen, add fentanyl as noted above. -MRI showed likely bone involvement from cancer but no evidence of acute cord or spine compression 8. Hyperlipidemia -continue atorvastatin 9.hypomagenesemia, acute, present on admission - mg level of 1.2 possibly associated with patient's weakness and likely associated with his prior afib with RVR. Given 4g today, continue to follow. Continue oral repletion as well. 10. Hypokalemia, acute K 3.0, will replete. 11. Elevated troponin from cardiac demand ischemia - patient with troponin values to 0.072 today on admission. Patient with no chest pain and EKG without ischemic changes. - now downtrending - possibly elevated in setting of heart failure and volume overload. - TTE as above 12. Acute on chronic anemia, normocytic - Hg now 8.3, stable from last admission. baseline appears to be around 9-10 as an outpatient. No signs or symptoms of active bleeding. Will continue to follow. 13. presumed pnuemonia from prior admission - continue cefdinir prescribed from previous admission for an additional 2 more days as previously prescribed. The patient reports he is DNR DNI, his Delfina is his surrogate decision maker
--- NOTE | 2020-08-28 16:11 | CM.DPNOTE ---
DCP Note Met w/patient's spouse and dtr DJ in room, spouse appears very frail. Introduced role and discussed DCP options. Spouse and dtr explain that patient had done well w/his first two rounds of chemo, so this current decline and recent fall at home were somewhat unexpected. Discussed PT recommendation for SNF; patient requiring Max assist of 2 today. Spouse hesitant since she knows patient will want to return home; but appreciative for the b/u plan and requests [facility] and [facility] be contacted. Placed call to Varsha at [facility], she can accept and work on auth through [employer] if there is a plan for patient's care after SNF stay, Varsha needs more information re: [facility] care plan, ie is dtr staying in town to assist? in addition, patient could not continue his chemo regimen until being DC from SNF to home. Faxed SNF referral to [facility] also per request from family. Further f/u needed re DCP options as patient's medical POC unfolds. Patient unable to tolerate MRI today, family explain patient is very claustrophobic, he may require additional sedation. Family hopeful patient will improve enough, physically, to return home. Following. RADHA
[2020-08-28] MEDS: POTASSIUM CHLORIDE 20 MEQ TAB 40 MEQ PO ×2 (17:37→17:38)
[2020-08-28] MEDS: INSULIN LISPRO 100 UNIT/ML 3ML VIAL SUBCUT ×2 (17:38→21:30)
[2020-08-28] MEDS: OLANZapine 2.5 MG TABLET 5 MG PO (22:03)
[2020-08-29] VITALS (12 sets, daily range): BP systolic 130–148; BP diastolic 55–71; PULSE 65–93; RESP 16–20; TEMP 36.2–37.1; O2SAT 93–98
[2020-08-29 05:54] LABS: Add Manual Diff / Slide Review YES; Hematocrit 23.7 % (41-53); Hemoglobin 7.8 g/dL (13.5-17.5); Mean Corpuscular HGB Conc 32.9 % (30-36); Mean Corpuscular Hemoglobin 27.2 PG (26-34); Mean Corpuscular Volume 82.7 fL (80-100); Platelet Count 169 X10^3/uL (150-400); Red Blood Cell Count 2.86 X10^6/uL (4.5-5.9); Red Cell Distribution Width 20.4 % (11.6-14.8); White Blood Cell Count 7.6 X10^3/uL (4.5-11.0)
[2020-08-29 05:59] LABS: Alanine Aminotransferase 18 IU/L (<50); Albumin 2.7 g/dL (3.5-5.0); Albumin Globulin Ratio 0.9 (1.0-2.8); Alkaline Phosphatase 175 U/L (38-126); Aspartate Aminotransferase 53 IU/L (17-59); Bilirubin Total 0.5 mg/dL (0.2-1.3); Blood Urea Nitrogen 16 mg/dL (9-20); Calcium 8.3 mg/dL (8.4-10.2); Carbon Dioxide 35 mmol/L (22-32); Chloride 97 mmol/L (98-107); Estimated Glomerular Filt Rate > 60.0 mL/min (>60); Globulin 2.9 g/dL (1.7-4.1); Glucose 118 mg/dL (80-110); HEMOLYSIS < 15 (0-50); Magnesium 1.8 mg/dL (1.6-2.3); Potassium 3.7 mmol/L (3.4-5.1); Sodium 134 mmol/L (137-145); Total Protein 5.6 g/dL (6.3-8.2)
[2020-08-29 06:54] LABS: Neutrophils Absolute Manual 6080 /uL (3000-5900); Nucleated Red Blood Cells 2 #/Diff; Total Cells Counted 100
[2020-08-29 06:55] LABS: Anisocytosis 1+; Dohle Bodies 1+
[2020-08-29] MEDS: FUROSEMIDE 40 MG TABLET PO (09:12)
[2020-08-29] MEDS: METOPROLOL ER 25 MG TABLET 12.5 MG PO ×2 (09:13→20:46)
[2020-08-29] MEDS: POTASSIUM CHLORIDE 20 MEQ TAB 40 MEQ PO (09:13)
[2020-08-29] MEDS: ATORVASTATIN 20 MG TABLET 40 MG PO (09:14)
[2020-08-29] MEDS: FERROUS SULFATE 325 MG TABLET PO (09:14)
[2020-08-29] MEDS: SODIUM CHLORIDE 0.9% FLUSH 10 ML IV (09:14)
[2020-08-29] MEDS: LOSARTAN 50 MG TABLET PO (09:14)
[2020-08-29] MEDS: ENOXAPARIN 40 MG/0.4 ML SYRINGE SUBCUT (09:14)
[2020-08-29] MEDS: CEFDINIR 300 MG CAPSULE PO (09:24)
[2020-08-29] MEDS: INSULIN LISPRO 100 UNIT/ML 3ML VIAL SUBCUT ×4 (09:25→20:47)
--- NOTE | 2020-08-29 11:50 | PT.IPTN ---
Current Diagnoses Acute diastolic (congestive) heart failure (08/27/20) Physical Therapy Treatment Note M2 PT-IP Current Condition Start: 08/28/20 12:39 Freq: NEEDED Status: Active Protocol: Document 08/28/20 10:10 AB (Rec: 08/28/20 12:50 AB [id number]) Physical Therapy Current Condition Current Condition Evaluation Date 08/28/20 Treatment Diagnosis sepsis; lung CA with mets; difficulty in walking Onset Date 08/27/20 M3 PT-IP Subjective Start: 08/28/20 12:39 Freq: NEEDED Status: Active Protocol: Document 08/29/20 10:45 MB (Rec: 08/29/20 11:49 MB [id number]) Subjective Physical Therapy Visit Type Type Treatment Note Visit Start Time 10:45 Visit Stop Time 10:58 Total Visit Minutes 13 Number of DIGITAL IMAGING TECHNICIAN Visits 0 Physical Therapy Visit Comments Patient Comments Pt agreeable to PT. Therapy Pain Assessment Pain When Pain Assessed At Rest Pain Present Pain Present Denied Pain M4 PT-IP Mobility and Gait Start: 08/28/20 12:39 Freq: NEEDED Status: Active Protocol: Document 08/29/20 10:45 MB (Rec: 08/29/20 11:49 MB [id number]) PT-Bed Mobility Assessment Supine to Sit Supine to Sit Contact Guard Assistance,1 Person Assistance,Head of Bed Elevated,Bedrails Scooting Scooting to Edge of Bed Standby Assistance PT-Transfer Assessment Sit to and From Stand Sit to and from Stand Contact Guard Assistance,1 Person Assistance,Use of Upper Extremities Equipment Transfer Assistive Device Gait Belt,Front Wheeled Walker Orthotic/Prosthetic Devices or Brace: Yes Comments Mobility Comments Pt hook lying in bed upon arrival with HOB increased. Pt is able to get to sitting EOB with cues for bending legs, keeping them on the bed and then rolling to reach for right rail with left hand and then swinging legs off the bed . Pt sits EOB with superv to don B LE braces with increased time and no assist from PT. He also doffs and dons hospital socks in order to put sleeves over legs to make a barrier between his skin and the articulating leg braces. Pt gait trains 80'x2 with forward, flexed posture and decreased step-length and foot clearance and CGA from PT. His HARI is very narrow. Left up in chair facing [place] with daughter arriving, alarm attached to gown and pt, daughter and nsg clearing leaving pt in chair in this position d/t call villegas and phone do not reach. He is progressing with mobility. Gait Assessment Gait Gait Assistance Required: Contact Guard Assist,1 Person Assist Distance (Feet) 80 Assistive Devices Assistive Device Gait Belt,4 Wheeled Walker Orthotic/Prosthetic Devices or Brace: Yes Gait Deviations General Gait Pattern Decreased Stride Length,Flexed Trunk,Narrow Based Gait,Step- to Gait Factors Limiting Gait Function Factors Limiting Gait Function Decreased Activity Tolerance, Decreased Strength,Limited Range of Motion,Poor Balance Comments Gait Comments See mobility comments PT-Balance Assessment Sitting Balance and Reactions Static Sitting Balance Ability Good Dynamic Sitting Balance Ability Good Standing Balance and Reactions Static Standing Balance Ability Fair Dynamic Standing Balance Ability Fair Device Used RW M5 PT-IP Objective Assessments Start: 08/28/20 12:39 Freq: NEEDED Status: Active Protocol: Document 08/28/20 10:10 AB (Rec: 08/28/20 12:50 AB [email or web address]) Orientation Orientation/Cognition Level of Alertness Alert Orientation Name,Place,Situation Language Function Ability Hard of Hearing Safety Awareness Decreased Safety Awareness Gross Range of Motion Lower Extremity ROM Assessment Within Functional Limits Strength Lower Extremity Strength Assessment Bilaterally Impaired Hip 3-/5 Knee 3+/5 Sensation Assessment Sensation Gross Sensation WNL Muscle Tone Muscle Tone WNL Yes M6 PT-IP Treatment Start: 08/28/20 12:39 Freq: NEEDED Status: Active Protocol: Document 08/28/20 10:10 AB (Rec: 08/28/20 12:50 AB [id number]) Physical Therapy Treatment Education Education Provided Safety M7 PT-IP Assessment and Plan Start: 08/28/20 12:39 Freq: NEEDED Status: Active Protocol: Document 08/29/20 10:45 MB (Rec: 08/29/20 11:49 MB [id number]) PT Summary Assessment and Plan Potential Rehabilitation Potential Good Status of Condition at Evaluation Evolving Summary Impairments Pain,ROM,Strength,Balance, Coordination,Sensation,Tone, Cognition,Bed Mobility, Transfers,Gait,Activity Tolerance Assessment Summary Pt progresses with mobility today and is able to sit EOB and don his B LE braces I with increased time and heavy mouth breathing and no reports of [id number]. He improves with gait distance as well and only requires standby to [facility] with PT this date. Goals Bed Mobility Goal Independent Transfer Goal Independent,Front Wheeled Walker Gait Goal Independent,Front Wheel Walker Gait Distance 100 Other Goals up/down 1 step using FWW SBA Days to Meet Goals 10 Frequency of Treatment Frequency Of Treatment Once a Day Treatment Plan Physical Therapy Treatment Plan Bed Mobility Training,Transfer Training,Gait Training, Therapeutic Exercise,Balance Retraining,Discharge Planning, Neuromuscular Re-ed, Coordination Retraining,Manual Therapy Recommendations To Nursing Amount of Assist Needed 1 Person Assist Discharge Recommendations PT Discharge Recommendations SNF Rehab Transportation Needs at Discharge Private Vehicle
[2020-08-29] MEDS: OXYCODONE IR 10 MG TABLET PO (12:47)
--- NOTE | 2020-08-29 14:40 | CM.DPC ---
DCP SNF Planning: Per MD, pt remains medically stable to d/c but unsafe for home and no insurance auth for SNF yet. SW called [employer] contracted facilities that SNF referral sent and [facility] willing to review but likely cannot accept. [facility] faxed today and SW spoke to admissions who states likely will not know if they will be willing to accept until tomorrow. [facility] had previously been faxed and had questions regarding pt's Chemo and LTC plan. SW spoke to pt's Dtr CECE who resides in [place] and she states she has been here locally for 3 months assisting with her parents and still currently feels SNF needed prior to safe return home. Dtr confirms that pt completed 2nd round of Chemo Cycle but 3rd round was postponed a few weeks ago due to labs and instability and no current scheduled plan or appt to begin 3rd round. SW discussed that during SNF, no chemo tx would happen and typically Oncologists is agreeable with pause on Chemo with appt set up for after SNF to determine if tx should continue at that time. Dtr is agreeable with this and discussed with pt as well. Dtr CECE confirms that at some point she will return to [place] but has no set plans and states her brother in [place] is coming up this week and they plan to really discuss LTC plans of assisted vs PP CG in the home. SW updated [facility] admissions and they are agreeable with accepting pt and beginning to work on insurance auth for SNF and that insurance rarely auths longer than 14 days and family should be aware so they can work on LTC plan now. MAXIMILIANO met bedside with pt and discussed briefly plan of d/c to [facility] if insurance auth obtained and he is agreeable and also agreeable with SW calling his Dtr. SW called Dtr DJ and updated on above and likely length of SNF stay and discussed providing her with the [employer] Guidebook with earmarked page of PP CG. Discussed the need to start working on plan now and she is very receptive and appreciative of the PP CG list and resources and requested SW to place in pt room so she can citrus picker tomorrow when bedside. PASRR completed. Plan: SW to follow for plan of [facility] SNF once they obtain [employer] auth for SNF. SAUNDRA Candelario
[2020-08-29] MEDS: ACETAMINOPHEN 325 MG TABLET 650 MG PO (14:48)
[2020-08-29] MEDS: fentaNYL 12 MCG/PATCH TOP (14:49)
--- NOTE | 2020-08-29 15:31 | PM.PN.1 ---
Subjective Subjective Date Patient Seen: 08/29/20 Time Patient Seen: 08:00 Interval history: Today he has no complaints. He is weak, but getting stronger. Exam Vital Signs (past 8 hours): - 08/29/20 07:40 08/29/20 07:55 08/29/20 11:00 Temperature 97.6 F 98.1 F Pulse Rate 78 93 H Respiratory Rate 16 18 Blood Pressure 135/61 130/55 L Pulse Oximetry 97 98 96 Oxygen Delivery Method Room Air Oxygen Flow Rate 0 Narrative Exam Narrative: Gen: no acute distress Lungs: diminshed breath sounds bilateral lung bases, no wheezing, rhonchi, or obvious rales. Cardiac exam: RRR with no murmur Abdomen: Soft, not tender nor distended, normal bowel sounds Neuro: Cranial nerves 2-12 are intact, strength is symmetric and equal, sensations grossly intact, gait is not assessed Extremities: 1+ edema in legs, no effusions in joints. Psych: Patient is awake alert and appropriate, his mood and affect is normal, he has appropriate thought process and content, Objective Labs Result Diagrams: 08/29/20 05:10 08/29/20 05:10 Labs: Laboratory Results - last 24 hr 08/29/20 08/29/20 05:10 05:10 WBC 7.6 RBC 2.86 L Hgb 7.8 L Hct 23.7 L MCV 82.7 MCH 27.2 MCHC 32.9 RDW 20.4 H Plt Count 169 Neut % (Auto) Not Reportable Lymph % (Auto) Not Reportable [place] % (Auto) Not Reportable Eos % (Auto) Not Reportable Baso % (Auto) Not Reportable Lymph # (Auto) Not Reportable [place] # (Auto) Not Reportable Baso # (Auto) Not Reportable Total Counted 100 Seg Neutrophils % 62.0 Band Neutrophils % 18.0 H Lymphocytes % (Manual) 13.0 L Atypical Lymphs % 3.0 H Monocytes % (Manual) 3.0 Basophils % (Manual) 1.0 Neutrophils # (Manual) 6080 H Nucleated RBCs 2 H Dohle Bodies 1+ H RBC Morphology See below Anisocytosis 1+ H Sodium 134 L Potassium 3.7 Chloride 97 L Carbon Dioxide 35 H BUN 16 Creatinine 0.40 L Estimated GFR > 60.0 BUN/Creatinine Ratio 40.0 H Glucose 118 H Calcium 8.3 L Magnesium 1.8 Total Bilirubin 0.5 AST 53 ALT 18 Alkaline Phosphatase 175 H Total Protein 5.6 L Albumin 2.7 L Globulin 2.9 Albumin/Globulin Ratio 0.9 L PFSH Medical History Diabetes mellitus Gastroesophageal reflux disease Hyperlipidemia Hypertension Pleural effusion Surgical History H/O right wrist surgery H/O rotator cuff surgery History of carpal tunnel surgery History of carpal tunnel surgery Hx of appendectomy Hx of inguinal hernia surgery Hx of knee surgery Previous back surgery Family History Father Cardiac disease Social History household members: spouse Smoking Status: Former smoker alcohol intake: current Assessment & Plan Assessment & Plan narrative: 84M with PMH of type 2 diabetes, hypertension, hyperlipidemia, gastroesophageal reflux disease, and small cell lung cancer, he is status post 2 cycles chemotherapy. He was recently admitted for afib with RVR and weakness. Returned to the ER with inability to ambulate due to weakness. Now with evidence of heart failure, which would be a new diagnosis for him. 1. Presumed acute congestive heart failure failure, preserved EF. - ruled out LE DVT with ultrasound. Start diuresis with lasix on admission - TTE ordered. EF preserved at 50-55%, dilated left atrium. 2. paroxysmal atrial fibrillation - recently admitted for afib. His EKG is sinus tachycardia. - CHADS-VASC is elevated, consider starting AC vs deferral to PCP. May be in the setting of hypomagnesemia. Continue beta elda. 3. 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 Though has now been delayed. - continue home pain control, but seems suboptimal at home. Will trial fentanyl patch as 12 mg to see if improvement. Narcan ordered if needed. 4. Hypertension -continue home betablocker, and will add diuretic as noted above. 5. GERD -continue PPI 6. Type 2 diabetes -metformin on hold -will start sliding scale insulin 7. Chronic back pain -will continue the patient's usual home pain med regimen, add fentanyl as noted above. -MRI showed likely bone involvement from cancer but no evidence of acute cord or spine compression 8. Hyperlipidemia -continue atorvastatin 9.hypomagenesemia, acute, present on admission - mg level of 1.2 possibly associated with patient's weakness and likely associated with his prior afib with RVR. Given 4g today, continue to follow. Continue oral repletion as well. 10. Hypokalemia, resolved - K 3.0, repleted 11. Elevated troponin from cardiac demand ischemia - patient with troponin values to 0.072 today on admission. Patient with no chest pain and EKG without ischemic changes. - now downtrending - possibly elevated in setting of heart failure and volume overload. - TTE as above 12. Acute on chronic anemia, normocytic - Hg now 8.3, stable from last admission. baseline appears to be around 9-10 as an outpatient. No signs or symptoms of active bleeding. Will continue to follow. 13. presumed pnuemonia from prior admission - continue cefdinir prescribed from previous admission for an additional 2 more days as previously prescribed. The patient reports he is DNR DNI, his Delfina is his surrogate decision maker Patient is stable for discharge from the hospital. CM looking for placement.
[2020-08-29] MEDS: OLANZapine 2.5 MG TABLET 5 MG PO (23:10)
[2020-08-30] VITALS (8 sets, daily range): BP systolic 130–159; BP diastolic 57–73; PULSE 70–83; RESP 16–18; TEMP 36.4–36.8; O2SAT 94–97
[2020-08-30] MEDS: OXYCODONE IR 10 MG TABLET PO ×2 (04:25→10:52)
[2020-08-30] MEDS: ACETAMINOPHEN 325 MG TABLET 650 MG PO (04:27)
[2020-08-30 04:59] LABS: Hematocrit 25.2 % (41-53); Hemoglobin 8.2 g/dL (13.5-17.5); Mean Corpuscular HGB Conc 32.5 % (30-36); Platelet Count 215 X10^3/uL (150-400); Red Blood Cell Count 3.04 X10^6/uL (4.5-5.9); Red Cell Distribution Width 20.5 % (11.6-14.8); White Blood Cell Count 8.9 X10^3/uL (4.5-11.0)
[2020-08-30 05:00] LABS: Add Manual Diff / Slide Review YES
[2020-08-30 05:24] LABS: BUN Creatinine Ratio 40.5 (6-22); Blood Urea Nitrogen 17 mg/dL (9-20); Calcium 8.9 mg/dL (8.4-10.2); Carbon Dioxide 29 mmol/L (22-32); Chloride 99 mmol/L (98-107); Estimated Glomerular Filt Rate > 60.0 mL/min (>60); Glucose 133 mg/dL (80-110); HEMOLYSIS < 15 (0-50); Magnesium 1.5 mg/dL (1.6-2.3); Potassium 4.1 mmol/L (3.4-5.1); Sodium 133 mmol/L (137-145)
[2020-08-30 06:14] LABS: Anisocytosis 3+; Neutrophils Absolute Manual 6408 /uL (3000-5900); Nucleated Red Blood Cells 1 #/Diff; Total Cells Counted 100
[2020-08-30] MEDS: MAGNESIUM SULFATE 4 GM/100 ML PIGGYBACK IV (07:40)
[2020-08-30] MEDS: METOPROLOL ER 25 MG TABLET 12.5 MG PO (08:42)
[2020-08-30] MEDS: ATORVASTATIN 20 MG TABLET 40 MG PO (08:42)
[2020-08-30] MEDS: ENOXAPARIN 40 MG/0.4 ML SYRINGE SUBCUT (08:43)
[2020-08-30] MEDS: LOSARTAN 50 MG TABLET PO (08:43)
[2020-08-30] MEDS: FERROUS SULFATE 325 MG TABLET PO (08:43)
[2020-08-30] MEDS: FUROSEMIDE 40 MG TABLET 20 MG PO (08:43)
--- NOTE | 2020-08-30 11:04 | PM.DS.1 ---
History of Present Illness History of Present Illness Chief complaint: pain, can't walk Narrative: Per Dr. Maxwell: The patient is an 84-year-old male with a history of type 2 diabetes, hypertension, hyperlipidemia, gastroesophageal reflux disease, and small cell lung cancer, he is status post 2 cycles chemotherapy. He was recently admitted for afib with RVR and weakness. The patient reports for the he has had continued difficulty with weakness where he was unable to stand. He states his legs just gave out. He had a fall yesterday but did not hit his head. He has had difficulty sleeping. Some mild LE edema, and orthopnea noted. No change to his chronic cough, no fever, chills, abdominal pain, nausea, or vomiting. He has had a couple of loose stools yesterday but none today. No dysuria or urinary frequency. Has chronic low back pain and upper back pain. In the emergency room, the patient was mildly hypertensive but the remainder of his vital signs are unremarkable. Initial laboratory evaluation showed no significant changes compared to his prior discharge labs from a few days ago except for a continued low magnesium at 1.2. His troponin was also slightly elevated at 0.072. Urinalysis was contaminated and not reflux for culture. COVID-19 testing was negative. Chest x-ray was unremarkable. Added on probnp which was >4000. Discharge Providers Provider Date of admission: 08/27/20 09:26 Discharge Date: 08/30/20 Primary care physician: Nico Rocha MD Consults: 08/27/20 07:13 Consult to [facility] - Electromechanical Technician Stat Comment: [facility] Consult: Community Health Res Need 08/27/20 12:09 Consult to Pastoral Services Routine Comment: Would like to talk to Talent Development Manager 08/28/20 08:23 Consult to Physical Therapy Evaluate & Treat Comment: Physician Instructions: Evaluate and Treat Discharge provider: Ramses Arevalo MD Summary Hospital Course Discharge Diagnosis: 1. Mild Congestive heart failure exacerbation with preserved EF 2. Paroxysmal atrial fibrillation 3. Metastatic small cell lung cancer with mets to lung, mediastinum, liver, and bone 4. Hypertension 5. GERD 6. Type 2 Diabetes 7. Chronic back pain 8. Hyperlipidemia 9. Hypomagnasemia 10. Elevated troponin from cardiac demand ischemia 11. Hypokalemia 12. Pneumonia, from last admission 13. Anemia Hospital Course: Mr. Valenzuela has had multiple recent admissions and visits to the hospital, initially for atrial fibrillation with RVR where he was diagnosed with a pneumonia. Then for progressively worsening back pain. And this admission for generalized weakness. He did not have any focal neurologic deficits. He had no bowel or bladder loss of continence, nor any decreased sensation. He had an MRI of his lumbar spine as he was having back pain and he has moderate spinal stenosis. He was given pain medications and physical therapy and he was improving on discharge. He was discharged to SNF for further physical therapy and pain control. He was started on a fentanyl patch in the hospital. He may benefit from orthopedic referral if his back pain remains for possible injections, he is likely a poor surgical candidate given his metastatic cancer. He also had a new diagnosis of a mild CHF exacerbation, EF was 50-55% and he was started on lasix and his volume overload improved and he was discharged on 20mg lasix daily. He had an elevated troponin in the setting of cardiac demand but no evidence of ACS. He is currently of chemotherapy per oncology, but has an appointment within a week to further evaluate if he could benefit from additional palliative chemotherapy. 84M with PMH of type 2 diabetes, hypertension, hyperlipidemia, gastroesophageal reflux disease, and small cell lung cancer, he is status post 2 cycles chemotherapy. He was recently admitted for afib with RVR and weakness. Returned to the ER with inability to ambulate due to weakness. Now with evidence of heart failure, which would be a new diagnosis for him. He completed antibiotics for pneumonia prior to discharge. Exam Vital Signs (past 8 hours): - 08/30/20 05:00 08/30/20 07:30 08/30/20 09:42 Temperature 97.6 F Pulse Rate 83 Respiratory Rate 16 Blood Pressure 130/73 Pulse Oximetry 96 94 96 08/30/20 09:46 Temperature Pulse Rate 73 Respiratory Rate Blood Pressure Pulse Oximetry Oxygen Delivery Method Room Air Oxygen Flow Rate 0 Narrative Exam Narrative: Gen: no acute distress Lungs: diminshed breath sounds bilateral lung bases, no wheezing, rhonchi, or obvious rales. Cardiac exam: RRR with no murmur Abdomen: Soft, not tender nor distended, normal bowel sounds Neuro: Cranial nerves 2-12 are intact, strength is symmetric and equal, sensations grossly intact, gait is not assessed Extremities: 1+ edema in legs, no effusions in joints. Psych: Patient is awake alert and appropriate, his mood and affect is normal, he has appropriate thought process and content, Objective Labs Result Diagrams: 08/30/20 04:43 08/30/20 04:43 Labs: Laboratory Results - last 24 hr 08/30/20 08/30/20 08/30/20 04:43 04:43 04:43 WBC 8.9 RBC 3.04 L Hgb 8.2 L Hct 25.2 L MCV 83.0 MCH 27.0 MCHC 32.5 RDW 20.5 H Plt Count 215 Neut % (Auto) Not Reportable Lymph % (Auto) Not Reportable [place] % (Auto) Not Reportable Eos % (Auto) Not Reportable Baso % (Auto) Not Reportable Lymph # (Auto) Not Reportable [place] # (Auto) Not Reportable Baso # (Auto) Not Reportable Total Counted 100 Seg Neutrophils % 62.0 Band Neutrophils % 10.0 H Lymphocytes % (Manual) 15.0 L Monocytes % (Manual) 8.0 Eosinophils % (Manual) 2.0 Myelocytes % 3.0 H Neutrophils # (Manual) 6408 H Nucleated RBCs 1 H RBC Morphology See below Anisocytosis 3+ H D Sodium 133 L Potassium 4.1 Chloride 99 Carbon Dioxide 29 BUN 17 Creatinine 0.42 L Estimated GFR > 60.0 BUN/Creatinine Ratio 40.5 H Glucose 133 H Calcium 8.9 Magnesium 1.5 L PFSH Medical History Diabetes mellitus Gastroesophageal reflux disease Hyperlipidemia Hypertension Pleural effusion Surgical History H/O right wrist surgery H/O rotator cuff surgery History of carpal tunnel surgery History of carpal tunnel surgery Hx of appendectomy Hx of inguinal hernia surgery Hx of knee surgery Previous back surgery Family History Father Cardiac disease Social History household members: spouse Smoking Status: Former smoker alcohol intake: current Discharge Plan Discharge Plan Patient Disposition: Home Provider Discharge Comment: Mr. Valenzuela was admitted with weakness, congestive heart failure, and back pain. He had an MRI of his lumbar spine where his pain was located some stenosis at lumbar l2-l3 and l4-l5. He was started on a fentanyl patch to help control his pain. He was recommended physical therapy to help try to regain strength. If he continues to have symptoms he could be referred to an orthopedic surgeon. He also had a mild congestive heart failure. He was started on lasix and he did have fluid taken off and felt mildly improved. [facility]. Discharge orders & Medications Prescriptions: New furosemide 40 mg Tablet 20 mg PO DAILY Qty: 30 RF: 0 fentanyl 12 mcg/hr Patch 72 Hour 12 mcg topical Q72H Qty: 3 RF: 0 Continued losartan 50 mg tablet 50 mg PO DAILY RF: 0 atorvastatin 40 mg tablet 40 mg PO DAILY RF: 0 omeprazole 40 mg capsule,delayed release(DR/EC) 40 mg PO QAM RF: 0 multivitamin Tablet 1 tab PO DAILY RF: 0 ferrous sulfate [Iron (ferrous sulfate)] 325 mg (65 mg iron) Tablet 325 mg PO DAILY RF: 0 cholecalciferol (vitamin D3) [Vitamin D3] 25 mcg (1,000 unit) Capsule 1,000 unit DAILY RF: 0 omega-3 fatty acids Capsule 1,000 mg PO DAILY RF: 0 ondansetron 8 mg Tablet,Disintegrating 8 mg PO Q12H PRN (Reason: Nausea) RF: 0 metformin 500 mg Tablet 500 mg PO DAILY RF: 0 metoprolol succinate 25 mg Tablet Extended Release 24 Hr 12.5 mg PO BID 30 Days Qty: 30 RF: 0 magnesium 200 mg tablet 200 mg PO DAILY 30 Days Qty: 30 RF: 0 olanzapine 10 mg tablet 5 mg PO Q12HR PRN (Reason: Anxiety) RF: 0 potassium chloride 10 mEq tablet extended release 10 meq PO BID RF: 0 Changed oxycodone 10 mg Tablet 10 mg PO Q6H PRN (Reason: Pain (Scale Score 4-6)) Qty: 10 RF: 0 Discontinued cefdinir 300 mg capsule 300 mg PO BID 5 Days Qty: 10 RF: 0 Follow up/Referrals: Nico Rocha MD [Primary Care Provider] - Diet/Activity/Treatments Diet: Regular Visit Report/Discharge Packet Instructions: DI for Heart Failure, DI for Atrial Fibrillation, DI for Spinal Stenosis Discharge Data Primary Care Provider: Nico Rocha Attending Provider: [facility] The patient has current or prior documentation of left ventricular ejection fraction (LVEF) less than 40%, or moderate or severely depressed left ventricular systolic function.: No
[2020-08-30] MEDS: INSULIN LISPRO 100 UNIT/ML 3ML VIAL SUBCUT (12:08)
--- NOTE | 2020-08-30 12:10 | CM.DPC ---
DCP/continued: Reviewed chart. Received update in AM rounds that patient is medically stable to discharge to SNF today. LEAD JAVA SOFTWARE ENGINEER confirmed with spouse and daughter and first SNF choice is [facility]. Placed call to [facility] and spoke with Varsha, she reports that authorization has been submitted to [employer] for SNF. P: Anticipate d/c to SNF within the next 24hrs. Ericka submitted authorization request to [employer]. SAUNDRA Cottrell
[2020-08-30] MEDS: SODIUM CHLORIDE 0.9% FLUSH 10 ML IV (12:25)
[2020-08-30 13:27] LABS: COVID19 -Nasal RAPID Negative (Negative)
--- NOTE | 2020-08-30 14:57 | CM.DPC ---
DCP/continued: Received call back from July at [facility]. She reports that they did get 7dy authorization from [employer] for SNF. Provider notified and SNF orders written. In addition, copy of COVID vaccine card faxed to [facility] per their request. Met with patient, spouse, and daughter to provide them with update. All in agreement. [place] form provided to patient with OBS explanation. In addition, VENEREAL DISEASE CONTROL HEAD encouraged family to start thinking about long-term planning. Family in agreement. P: [facility] today for continued rehabilitation. SAUNDRA Cottrell
--- NOTE | 2020-08-30 15:14 | PC.NURSE ---
Day shift: Pt left unit to [facility] at approx 1510. SNF packet given to transport person. Pt's family in room and aware of the plan of [facility] today. Pt has all personal belonings and new MD scripts in SNF packet. 2 different numbers called at [facility] called to give RN report but no answer. Oncoming RN (Laurie) ok with giving report when they call for it.
--- NOTE | 2020-09-07 16:13 | PC.NURSE ---
Late Entry; magnesium infusion initiated 08/28 at 1143, complete at 1544.
== END 2020-08-30 15:16 ==
LOC: ED 09:25 → AC 09:30
PROVIDERS: Internal Medicine; Nurse Practitioner Family; Admitting Provider Internal Medicine; Emergency Provider Emergency Medicine; PCP Internal Medicine; Referring Provider Emergency Medicine; Visit Provider Internal Medicine
DX: I11.0 Hypertensive heart disease with heart failure (principal); I50.31 Acute diastolic (congestive) heart failure; I48.0 Paroxysmal atrial fibrillation; K21.9 Gastro-esophageal reflux disease without esophagitis; C34.90 Malignant neoplasm of unspecified part of unspecified bronchus or lung; C78.1 Secondary malignant neoplasm of mediastinum; C78.7 Secondary malignant neoplasm of liver and intrahepatic bile duct; C78.6 Secondary malignant neoplasm of retroperitoneum and peritoneum; C79.51 Secondary malignant neoplasm of bone; E11.9 Type 2 diabetes mellitus without complications; Z79.84 Long term (current) use of oral hypoglycemic drugs; E78.5 Hyperlipidemia, unspecified; E87.6 Hypokalemia; G89.29 Other chronic pain; D64.9 Anemia, unspecified; Z20.822 Contact with and (suspected) exposure to COVID-19; Z66 Do not resuscitate
CPT/HCPCS: 36415; 36591; 70450; 72148; 80048; 80053; 81003; 81015; 82550; 82553; 82962; 83735; 83880; 84484; 85007; 85025; 87635; 93005; 93306; 93970; 96361; 96365; 96366; 96372; 96375; 96376; 97116; 97162; 99284; C9803; G0378; J1642; J1650; J1815; J1940; J2060; J3475